=== PATIENT | female | born 1960 | race Caucasian/White ===

== ENCOUNTER 2017-08-13 12:28 | Emergency (ER) | payer MEDICARE, OTHER, SELFPAY ==
[2017-08-13 12:30] VITALS: BP 100/59; PULSE 82; RESP 20; TEMP 36.9; O2SAT 98; BMI 20.6
--- NOTE | 2017-08-13 12:44 | CT_ITS ---
CT lumbar spine wo con Ordering Physician: Lisbet Delgado MD Patient Age: 57 years: Female HISTORY: ITS.REASON: FELL ON ICE X4 DAYS AGO Fell on ice 4 days ago with persistent low back pain. TECHNIQUE: Helical CT is performed the lumbar spine with axial sagittal coronal reconstruction CT workstation COMPARISON :CT chest 10/15/2015 FINDINGS The lumbar vertebral bodies appear intact with no compression fractures or acute findings evident. . Normal alignment L-spine. Disc spaces fairly well maintained. L5/S1 disc intact scant central bulge. Moderate facet hypertrophy and arthropathy. L4/5 diffuse disc bulge most evident central along with facet and ligament flavum hypertrophy. Most Exuberant facet hypertrophy to the left. Features slight narrow the spinal canal. Appearance approaching borderline spinal stenosis. Mild bilateral foraminal encroachment due to these features as well L3/4. Disc intact. Neural foramen unremarkable L2/3 disc intact. Unremarkable L1/2 disc intact. Unremarkable. T12/disc intact. The transverse processes appear intact. Sacrum and SI joints unremarkable. No urinary tract calculi nor obstruction. It aorta minimally calcified but no aneurysm. No retroperitoneal adenopathy. . IMPRESSION: 1. No acute fracture nor subluxation lumbar spine. 2. Developing degenerative changes lower L-spine most notable at L4/5. L4/5 disc bulge most evident central along with facet and ligamentum flavum hypertrophy. Appearance approaching borderline spinal stenosis. Mild bilateral foraminal encroachment. L5/S1 moderatBilateral facet hypertrophy/arthropathy.
--- NOTE | 2017-08-13 12:54 | PC.NURSE ---
CAME OUT OF ROOM AND SAID PT TOLD HIM SHE HAD BEEN VOMITING FOR 3 DAYS , WHICH WAS NEVER TOLD TO NURSING STAFF
[2017-08-13 13:19] LABS: Basophils % 0.2 % (0.1-2.0); Eosinophils # 0.2 K/mm3 (0.0-0.4); Eosinophils % 1.6 % (0.1-12.0); Hematocrit 39.1 % (37.0-47.0); Hemoglobin 13.2 g/dL (12.2-16.2); Lymphocytes # 1.4 K/mm3 (0.7-4.5); Lymphocytes % 9.9 K/mm3 (10-50); Mean Corpuscular HGB Conc 33.7 g/dL (31.8-35.4); Mean Corpuscular Hemoglobin 31.8 pg (27.0-31.2); Mean Corpuscular Volume 94.4 fl (81-99); Mean Platelet Volume 8.1 fl (7.4-10.4); Monocytes # 1.1 K/mm3 (0.1-1.0); Monocytes % 7.8 % (1.7-9.3); Neutrophils # 11.1 K/mm3 (1.8-7.8); Neutrophils % 80.5 % (37.0-80.0); Platelet Count 306 K/mm3 (142-424); Red Blood Count 4.14 M/mm3 (4.20-5.40); Red Cell Distribution Width 12.8 % (11.5-17.5); White Blood Count 13.8 K/mm3 (4.8-10.8)
[2017-08-13 13:27] LABS: Alanine Aminotransferase 18 U/L (12-78); Albumin Level 3.1 gm/dL (3.4-5.0); Albumin/Globulin Ratio 0.9 (1.1-1.8); Alkaline Phosphatase 108 U/L (46-116); Anion Gap 9.8 mEq/L (5-15); Aspartate Amino Transferase 16 U/L (15-37); Bilirubin,Total 0.4 mg/dL (0.2-1.0); Blood Urea Nitrogen 12 mg/dL (7-18); Calcium 8.4 mg/dL (8.5-10.1); Carbon Dioxide 28 mmol/L (21.0-32.0); Chloride 100 mmol/L (98-107); Creatinine Clearance Estimated 69 mL/min (0-300); Creatinine,Serum 0.65 mg/dL (0.55-1.02); Estimated Glomerular Filt Rate 94 ml/min (>60); GFR (African American) 113 ML/MIN (>60); Globulin 3.6 gm/dl (1.3-3.2); Glucose 102 mg/dL (74-106); Sodium 135 mmol/L (136-145); Total Protein,Serum 6.7 gm/dL (6.4-8.2)
[2017-08-13 13:30] LABS: Potassium 2.8 mmoL/L (3.5-5.1)
--- NOTE | 2017-08-13 14:21 | HMH.EDGENADL ---
ED Disposition Clinical Impression: Muscle spasm, Hypokalemia, DJD (degenerative joint disease) Disposition: Home, Self-Care Condition on Discharge: Good Instructions: DI for Low Back Pain Additional Instructions: I advised the patient to slow down on the daily coffee. I advised the patient for a daily banana or orange a day. 3- rest. 4- warm compresses. 5- icy hot. 6- robaxin 7- folloqw up [facility] pcp rosalinda burrows in [place] for a potassium recheck Referrals: Rosalinda Burrows PA [Primary Care Provider] - - Critical Care Critical Care Time: No Attestation: On 08/13/17, the high probability of a clinically significant, sudden or life threatening deterioration of the following system(s) required my full and direct attention, intervention and personal management. The time I documented below is in addition to time spent performing reported procedures but includes the following listed in this critical care notation. Medical Decision Making Vital Signs: 08/13/17 12:30 Temperature 98.4 F Temperature Source Oral Pulse Rate [Right Radial] 82 Respiratory Rate 20 Blood Pressure [Right Arm] 100/59 Blood Pressure Mean [Right Arm] 72 Blood Pressure Source [Right Arm] Automatic Cuff Blood Pressure Position [Right Arm] Standing 02 Sat by Pulse Oximetry 98 Oxygen Delivery Method Room Air - Lab Data Lab Results 08/13/17 13:10: WBC 13.8 H, RBC 4.14 L, Hgb 13.2, Hct 39.1, MCV 94.4, MCH 31.8 H, MCHC 33.7, RDW 12.8, Plt Count 306, MPV 8.1, Neut % (Auto) 80.5 H, Lymph % (Auto) 9.9 L, [place] % (Auto) 7.8, Eos % (Auto) 1.6, Baso % (Auto) 0.2, Neut # (Auto) 11.1 H, Lymph # (Auto) 1.4, [place] # (Auto) 1.1 H, Eos # (Auto) 0.2, Baso # (Auto) 0.0 08/13/17 13:10: Sodium 135 L, Potassium 2.8 L*, Chloride 100, Carbon Dioxide 28, Anion Gap 9.8, BUN 12, Creatinine 0.65, Estimated Creat Clear 69, Estimated GFR 94, Est GFR ( Amer) 113, Glucose 102, Calcium 8.4 L, Total Bilirubin 0.4, AST 16, ALT 18, Alkaline Phosphatase 108, Total Protein 6.7, Albumin 3.1 L, Globulin 3.6 H, Albumin/Globulin Ratio 0.9 L 08/13/17 13:14: Troponin I < 0.02, Lipase 69 L Result diagrams: 08/13/17 13:10 08/13/17 13:10 Orders (Tests/Meds): ED MEDICATIONS Discontinued Medications Generic Name Dose Route Start Last Admin Trade Name Astrid PRN Reason Stop Dose Admin Ketorolac Tromethamine 60 mg 08/13/17 13:31 08/13/17 13:37 Toradol 60mg/2ml Vial IM 08/13/17 13:32 60 mg ONCE ONE Administration Potassium Chloride 40 meq 08/13/17 14:03 08/13/17 14:06 Klor-Con 20meq Tablet PO 08/13/17 14:04 40 meq ONCE ONE Administration - CT Data CT Scan: L-Spine Time Received: 14:[address] Reviewed: Yes: I have reviewed the patient's CT results, I have viewed the radiologist's interpretation Preliminary Findings: Abnormal Findings Narrative: CT scan was positive for arthritis. - Denis Inquiry Pt receiving controlled substance: No Denis was queried for this patient: No Medical Decision Making Narrative: The patient was ruled out for myocardial infarction underwent normal labs except for hypokalemia. Received potassium replacement. Follow-up with Rosalinda burrows in the morning for repeated with POTASSIUM. She was instructed not to drink too much coffee, eat a banana or orange today. General Adult HPI - General Chief complaint: Back Pain/Injury Stated complaint: back pain no accident Mode of Arrival: Ambulatory Limitations: No Limitations Description of Symptoms (Recalled from ER Triage Doc. by RN): PAIN LOW BACK FROM FALL ON ICE X4 DAYS AGO - History of Present Illness HPI narrative: 57 years old white female who slipped and ann her back 4 days ago. Since then she has been experiencing right lower paraspinal pain and vomiting. He did not vomit today. She denies radiation of the pain to the lower extremities she denies weakness or numbness. She denies loss of urine or bowel control. She denies
--- NOTE | 2017-08-13 14:25 | ED_ITS ---
ED Disposition Clinical Impression: Muscle spasm, Hypokalemia, DJD (degenerative joint disease) Disposition: Home, Self-Care Condition on Discharge: Good Instructions: DI for Low Back Pain Additional Instructions: I advised the patient to slow down on the daily coffee. I advised the patient for a daily banana or orange a day. 3- rest. 4- warm compresses. 5- icy hot. 6- robaxin 7- folloqw up [facility] pcp rosalinda burrows in [place] for a potassium recheck Referrals: Rosalinda Burrows PA [Primary Care Provider] - - Critical Care Critical Care Time: No Attestation: On 08/13/17, the high probability of a clinically significant, sudden or life threatening deterioration of the following system(s) required my full and direct attention, intervention and personal management. The time I documented below is in addition to time spent performing reported procedures but includes the following listed in this critical care notation. Medical Decision Making Vital Signs: 08/13/17 12:30 Temperature 98.4 F Temperature Source Oral Pulse Rate [Right Radial] 82 Respiratory Rate 20 Blood Pressure [Right Arm] 100/59 Blood Pressure Mean [Right Arm] 72 Blood Pressure Source [Right Arm] Automatic Cuff Blood Pressure Position [Right Arm] Standing 02 Sat by Pulse Oximetry 98 Oxygen Delivery Method Room Air - Lab Data Lab Results 08/13/17 13:10: WBC 13.8 H, RBC 4.14 L, Hgb 13.2, Hct 39.1, MCV 94.4, MCH 31.8 H , MCHC 33.7, RDW 12.8, Plt Count 306, MPV 8.1, Neut % (Auto) 80.5 H, Lymph % ( Auto) 9.9 L, [place] % (Auto) 7.8, Eos % (Auto) 1.6, Baso % (Auto) 0.2, Neut # ( Auto) 11.1 H, Lymph # (Auto) 1.4, [place] # (Auto) 1.1 H, Eos # (Auto) 0.2, Baso # (Auto) 0.0 08/13/17 13:10: Sodium 135 L, Potassium 2.8 L*, Chloride 100, Carbon Dioxide 28 , Anion Gap 9.8, BUN 12, Creatinine 0.65, Estimated Creat Clear 69, Estimated GFR 94, Est GFR ( Amer) 113, Glucose 102, Calcium 8.4 L, Total Bilirubin 0.4, AST 16, ALT 18, Alkaline Phosphatase 108, Total Protein 6.7, Albumin 3.1 L , Globulin 3.6 H, Albumin/Globulin Ratio 0.9 L 08/13/17 13:14: Troponin I < 0.02, Lipase 69 L Result diagrams: 08/13/17 13:10 08/13/17 13:10 Orders (Tests/Meds): ED MEDICATIONS Discontinued Medications Generic Name Dose Route Start Last Admin Trade Name Astrid PRN Reason Stop Dose Admin Ketorolac Tromethamine 60 mg 08/13/17 13:31 08/13/17 13:37 Toradol 60mg/2ml Vial IM 08/13/17 13:32 60 mg ONCE ONE Administration Potassium Chloride 40 meq 08/13/17 14:03 08/13/17 14:06 Klor-Con 20meq Tablet PO 08/13/17 14:04 40 meq ONCE ONE Administration - CT Data CT Scan: L-Spine Time Received: 14:[address] Reviewed: Yes: I have reviewed the patient's CT results, I have viewed the radiologist's interpretation Preliminary Findings: Abnormal Findings Narrative: CT scan was positive for arthritis. - Denis Inquiry Pt receiving controlled substance: No Denis was queried for this patient: No Medical Decision Making Narrative: The patient was ruled out for myocardial infarction underwent normal labs except for hypokalemia. Received potassium replacement. Follow-up with Rosalinda burrows in the morning for repeated with POTASSIUM. She was instructed not to drink too much coffee, eat a banana or orange today. General Adult HP
[2017-08-13 15:03] LABS: Lipase 69 u/L (73-393); Troponin I < 0.02 ng/ml (0.00-0.06)
[2017-08-13 15:36] VITALS: BP 109/68; PULSE 68; RESP 18; O2SAT 98
== END 2017-08-13 15:36 | disposition home or self-care (01) ==
PROVIDERS: Emergency Provider Emergency Medicine; PCP Physician Assistant
DX: E87.6 Hypokalemia (principal); M62.838 Other muscle spasm; M19.90 Unspecified osteoarthritis, unspecified site
CPT/HCPCS: 36415; 72131; 80053; 83690; 84484; 85025; 99282

== ENCOUNTER → 2017-08-14 15:57 | Outpatient (REF) | payer MEDICARE, OTHER, SELFPAY ==
[2017-08-14 20:24] LABS: Potassium 3.6 mmoL/L (3.5-5.1)
== END ==
LOC: LAB 15:57
PROVIDERS: Visit Provider Physician Assistant
DX: E87.6 Hypokalemia (principal)
CPT/HCPCS: 84132

== ENCOUNTER → 2017-09-08 10:12 | Outpatient (CLI) | payer MEDICARE, OTHER, SELFPAY | PROVIDERS: PCP Physician Assistant; Visit Provider Physician Assistant ==

== ENCOUNTER → 2017-09-13 15:00 | Outpatient (CLI) | payer MEDICARE, OTHER, SELFPAY ==
--- NOTE | 2017-09-13 15:00 | MR_ITS ---
MR lumbar spine wo con, MR 3-d myelogram/MRCP HISTORY: Low back pain with numbness in the left leg and hip ORDERING PHYSICIAN: DIANELYS Ortiz PATIENT AGE: 57 years COMPARISON: CT scan of 08/13/2017 TECHNIQUE: Standard multiplanar multiecho sequences are performed without contrast. 3-D MIP and myelographic images are also rendered and reviewed FINDINGS: There is normal alignment. Spinal cord ends at the L1 level. T12-L1, L1-L2, L2-L3, and L3-L4 have an unremarkable appearance. L4-5: Mild concentric bulging disc with minimal central disc protrusion very slightly eccentric toward the left with mild anterior compression upon the thecal sac. There is facet and ligamentum flavum hypertrophy with bilateral lateral recess narrowing slightly greater on the left. There is mild impingement upon the left L5 nerve root with canal stenosis at 10 mm at this level. L5-S1: Minimal bulging disc slightly eccentric toward the right abutting the right S1 nerve root. No extruded herniated disc. No obvious fracture. IMPRESSION: 1. Mild concentric bulging disc at L4-5 with small broad-based central disc protrusion slightly eccentric toward the left with mild anterior compression upon the thecal sac. There is facet and ligamentum flavum hypertrophy with bilateral lateral recess narrowing slightly greater on the left. There is mild impingement upon the left L5 nerve root with canal stenosis at 10 mm at this level. 2. Mild bulging disc at L5-S1 slightly eccentric toward the right abutting the right S1 nerve root.
== END ==
PROVIDERS: PCP Physician Assistant; Visit Provider Physician Assistant
DX: M48.061 Spinal stenosis, lumbar region without neurogenic claudication (principal); M54.5 Low back pain
CPT/HCPCS: 72148; 76376

== ENCOUNTER → 2017-10-05 13:53 | Outpatient (POV) | payer MEDICARE, OTHER, SELFPAY | PROVIDERS: PCP Physician Assistant; Visit Provider Neurological Surgery | DX: Z00.00 Encounter for general adult medical examination without abnormal findings (principal) ==

== ENCOUNTER → 2017-12-12 12:01 | Outpatient (CLI) | payer MEDICARE, OTHER, SELFPAY ==
--- NOTE | 2017-12-12 12:27 | XR_ITS ---
XR chest 2V HISTORY: ITS.REASON: Congestion ORDERING PHYSICIAN: DIANELYS Ortiz PATIENT AGE: 57 years COMPARISON: 08/11/2015 FINDINGS: Hyperinflation with attenuation of the pulmonary vessels consistent with EOP D. No lobar consolidation or collapse. Calcified granuloma is present in the right lower lobe. Lungs are hyperexpanded with eventration of the right hemidiaphragm. There has been prior median sternotomy. 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
== END ==
PROVIDERS: PCP Physician Assistant; Visit Provider Physician Assistant
DX: R07.9 Chest pain, unspecified (principal); T81.32XA Disruption of internal operation (surgical) wound, not elsewhere classified, initial encounter
CPT/HCPCS: 71046

== ENCOUNTER → 2018-03-07 11:04 | Outpatient (REF) | payer MEDICARE, OTHER, SELFPAY ==
[2018-03-09 18:09] LABS: Neisseria gonorrhoeae, NAA Negative (Negative)
== END ==
LOC: LAB 11:04
PROVIDERS: Visit Provider Physician Assistant
DX: N76.0 Acute vaginitis (principal); B96.89 Other specified bacterial agents as the cause of diseases classified elsewhere
CPT/HCPCS: 87210; 87491; 87591

== ENCOUNTER → 2018-03-28 08:27 | Outpatient (CLI) | payer MEDICARE, OTHER, SELFPAY ==
--- NOTE | 2018-03-28 08:30 | XR_ITS ---
XR wrist LT min 3V HISTORY follow-up fracture ITS.REASON: LT Wrist FX ORDERING PHYSICIAN: Felix Hernandez MD PATIENT AGE: 57 years Comparison: 03/22/2018 FINDINGS: Nondisplaced transverse fracture of the distal radius once again noted. There is mild dorsal angulation of the distal fracture fragment. There may also be a longitudinal component to the fracture extending to the articular surface. On the lateral view there is a mildly displaced dorsal fracture fragment. IMPRESSION: No change transverse fracture distal radius with suspected longitudinal component extending to the articular surface with a small nondisplaced dorsal fragment
== END ==
PROVIDERS: PCP Physician Assistant; Visit Provider Orthopaedic Surgery
DX: S62.102A Fracture of unspecified carpal bone, left wrist, initial encounter for closed fracture (principal)
CPT/HCPCS: 73110

== ENCOUNTER → 2018-04-02 15:12 | Outpatient (CLI) | payer MEDICARE, OTHER, SELFPAY ==
--- NOTE | 2018-04-02 15:17 | US_ITS ---
US extremity RT limited CLINICAL INDICATION: Palpable nodule in the right hip ITS.REASON: nodule right hip ORDERING PHYSICIAN: DIANELYS Ortiz PATIENT AGE: 57 years Comparison: None FINDINGS: There is an isoechoic oval area in the subcutaneous tissues of the right hip which measures 1 x 0.6 cm. There is a peripheral rim of decreased echogenicity around this area. This corresponds to the palpable abnormality. The ultrasound characteristics are nonspecific. No other significant anomalies are evident. IMPRESSION: Solid appearing 1 x 0.6 cm subcutaneous nodule in the right hip. Sonographic findings are nonspecific. Possibly due to an encapsulated lipoma. Follow-up is recommended to confirm stability. CT or MRI may add more specificity. If that is not performed then would recommend at least a 3 month ultrasound follow-up
== END ==
PROVIDERS: PCP Physician Assistant; Visit Provider Physician Assistant
DX: M25.851 Other specified joint disorders, right hip (principal)
CPT/HCPCS: 76882

== ENCOUNTER → 2018-04-03 08:17 | Outpatient (CLI) | payer MEDICARE, OTHER, SELFPAY ==
--- NOTE | 2018-04-03 08:20 | XR_ITS ---
XR wrist LT min 3V HISTORY follow-up fracture/closed reduction ITS.REASON: Left Wrist Fracture ORDERING PHYSICIAN: Felix Hernandez MD PATIENT AGE: 57 years Comparison: 03/28/2018 FINDINGS: There is a cast now in place stabilizing the distal radial fracture and ulnar styloid avulsion. There is mild dorsal angulation of the distal fracture fragment not significant changed. IMPRESSION: No change nondisplaced distal radial fracture with dorsal angulation and avulsion of the styloid process of the ulna
== END ==
PROVIDERS: PCP Physician Assistant; Visit Provider Orthopaedic Surgery
DX: S62.102A Fracture of unspecified carpal bone, left wrist, initial encounter for closed fracture (principal)
CPT/HCPCS: 73110

== ENCOUNTER → 2018-04-06 13:14 | Outpatient (CLI) | payer MEDICARE, OTHER, SELFPAY ==
[2018-04-06 18:25] LABS: Amphetamine/Metha Screen,Urine Negative ng/mL (<1000); Barbiturates Screen,Urine Negative ng/mL (<200); Benzodiazepines Screen,Urine Negative ng/mL (<200); Cannabinoid Screen,Urine Negative ng/mL (<50); Cocaine Screen,Urine Negative ng/mL (<300); Methadone Screen,Urine Negative ng/mL (<300); Opiate Screen,Urine Negative ng/mL (<300); Phencyclidine Screen,Urine Negative ng/mL (<25)
== END ==
PROVIDERS: Visit Provider Nurse Practitioner Family
DX: M25.532 Pain in left wrist (principal); M54.2 Cervicalgia
CPT/HCPCS: 80305

== ENCOUNTER → 2018-04-12 12:50 | Outpatient (CLI) | payer MEDICARE, OTHER, SELFPAY ==
--- NOTE | 2018-04-12 12:52 | XR_ITS ---
XR wrist LT min 3V HISTORY follow-up fracture ITS.REASON: left wrist fx/ in cast ORDERING PHYSICIAN: Erick Ivy MD PATIENT AGE: 57 years Comparison: 04/03/2018 FINDINGS: Impacted distal radial fracture once again noted with dorsal angulation of the distal fracture fragment and no significant displacement. Fracture line is obscured by the underlying cast. IMPRESSION: No change nondisplaced impacted dorsally angulated distal radial fracture
== END ==
PROVIDERS: PCP Physician Assistant; Visit Provider Orthopaedic Surgery
DX: S62.102A Fracture of unspecified carpal bone, left wrist, initial encounter for closed fracture (principal)
CPT/HCPCS: 73110

== ENCOUNTER → 2018-08-30 08:57 | Outpatient (CLI) | payer MEDICARE, OTHER, SELFPAY ==
--- NOTE | 2018-08-30 09:00 | US_ITS ---
US extremity RT limited CLINICAL INDICATION: ITS.REASON: possible lymph node enlargement ORDERING PHYSICIAN: Alejandro Garay MD PATIENT AGE: 58 years Comparison: None FINDINGS: Ultrasound performed of the right groin demonstrating enlarged lymph node at 3.3 x 3.2 x 1.6 cm. There is a central fatty hilum. There are other smaller nodes present in the right groin. No abnormal fluid collections are evident. There are few small nodes in the left inguinal area measuring 1 x 0.8 cm. IMPRESSION: Right inguinal adenopathy
[2018-09-06 08:38] LABS: B. henselae IgG NEGATIVE; B. henselae IgM NEGATIVE
[2018-09-06 08:39] LABS: B. quintana IgG NEGATIVE
[2018-09-06 09:44] LABS: B. quintana IgM NEGATIVE
== END ==
PROVIDERS: PCP Physician Assistant; Visit Provider Surgery
DX: L98.9 Disorder of the skin and subcutaneous tissue, unspecified (principal)
CPT/HCPCS: 36415; 76882; 86611

== ENCOUNTER → 2018-09-20 10:49 | Outpatient (CLI) | payer MEDICARE, OTHER, SELFPAY ==
[2018-09-20 11:12] LABS: Basophils % 0.8 % (0.1-2.0); Eosinophils # 0.1 K/mm3 (0.0-0.4); Eosinophils % 1.1 % (0.1-12.0); Hematocrit 41.3 % (37.0-47.0); Hemoglobin 13.2 g/dL (12.2-16.2); Lymphocytes # 0.7 K/mm3 (0.7-4.5); Lymphocytes % 13.7 % (10-50); Mean Corpuscular Hemoglobin 31.9 pg (27.0-31.2); Mean Corpuscular Volume 99.7 fl (81-99); Mean Platelet Volume 7.6 fl (7.4-10.4); Monocytes # 0.4 K/mm3 (0.1-1.0); Monocytes % 7.1 % (1.7-9.3); Neutrophils # 4.1 K/mm3 (1.8-7.8); Neutrophils % 77.3 % (37.0-80.0); Platelet Count 284 K/mm3 (142-424); Red Blood Count 4.14 M/mm3 (4.20-5.40); White Blood Count 5.3 K/mm3 (4.8-10.8)
[2018-09-20 12:12] LABS: Anion Gap 14.7 mEq/L (5-15); Blood Urea Nitrogen 11 mg/dL (7-18); Calcium 8.6 mg/dL (8.5-10.1); Carbon Dioxide 28 mmol/L (21.0-32.0); Chloride 100 mmol/L (98-107); Estimated Glomerular Filt Rate 102 ml/min (>60); GFR (African American) 124 ML/MIN (>60); Glucose 85 mg/dL (74-106); Potassium 3.7 mmoL/L (3.5-5.1); Sodium 139 mmol/L (136-145)
== END ==
PROVIDERS: Visit Provider Surgery
DX: L98.9 Disorder of the skin and subcutaneous tissue, unspecified (principal); S62.102A Fracture of unspecified carpal bone, left wrist, initial encounter for closed fracture
CPT/HCPCS: 36415; 80048; 85025

== ENCOUNTER → 2019-01-11 11:22 | Outpatient (CLI) | payer MEDICARE, OTHER, SELFPAY ==
--- NOTE | 2019-01-11 11:27 | XR_ITS ---
XR hand RT min 3V HISTORY: Third digit pain, possible foreign body ITS.REASON: ? FB right 3rd PIP ORDERING PHYSICIAN: DIANELYS Keenan PATIENT AGE: 58 years COMPARISON: None FINDINGS: No fracture or dislocation. No lytic or blastic change. There is normal mineralization.. The joint spaces are well-preserved. No significant degenerative/arthritic changes. No erosive changes evident.. IMPRESSION: Negative, no acute finding
--- NOTE | 2019-01-11 11:27 | XR_ITS ---
XR chest 2V HISTORY: ITS.REASON: cough, pain right side ORDERING PHYSICIAN: DIANELYS Keenan PATIENT AGE: 58 years COMPARISON: 12/12/2017 FINDINGS: Prior CABG. Normal heart size. COPD. There is patchy density in the right lower lobe consistent with pneumonia with chronic blunting of CP angles. IMPRESSION: Right lower lobe pneumonia with COPD
== END ==
PROVIDERS: PCP Physician Assistant; Visit Provider Physician Assistant
DX: M25.441 Effusion, right hand (principal); R05 Cough
CPT/HCPCS: 71046; 73130

== ENCOUNTER → 2019-04-02 10:18 | Outpatient (CLI) | payer MEDICARE, OTHER, SELFPAY ==
--- NOTE | 2019-04-02 10:22 | XR_ITS ---
PROCEDURE: XR CHEST 2V CLINICAL HISTORY: cough Cough pneumonia COMPARISON: CXR CHEST(2 VIEWS-NOT PORTABLE) from 06/23/2014 CXR CHEST(2 VIEWS-NOT PORTABLE) from 08/11/[address] [facility] [address] CHEST W/O CONTRAST from 07/13/2016 CXR2V XR chest 2V from 12/12/2017 FINDINGS: Prior median sternotomy. COPD. Old granulomatous disease. There is chronic blunting of the CP angles. No lobar consolidation or collapse is evident. No acute bony abnormalities. IMPRESSION: No acute finding. COPD with chronic change Dictated by: Angel Luna MD 04/02/2019 17:13 Electronically signed by Angel Luna MD in [place] 04/02/2019 17:13
== END ==
PROVIDERS: PCP Emergency Medicine; Visit Provider Nurse Practitioner Family
DX: R05 Cough (principal); R06.2 Wheezing
CPT/HCPCS: 71046

== ENCOUNTER → 2019-08-07 16:43 | Outpatient (CLI) | payer MEDICARE, MEDICAID, SELFPAY ==
[2019-08-10 12:23] LABS: Neisseria gonorrhoeae, NAA Negative (Negative)
== END ==
PROVIDERS: Visit Provider Nurse Practitioner Family
DX: N76.0 Acute vaginitis
CPT/HCPCS: 87210; 87591

== ENCOUNTER → 2020-07-31 07:28 | Outpatient (CLI) | payer MEDICARE, MEDICAID, SELFPAY ==
--- NOTE | 2020-07-31 07:46 | MR_ITS ---
PROCEDURE: MR CERVICAL SPINE WO/W CON CLINICAL INDICATION: cystic lesion overlying c -spine Palpable mass of the posterior neck COMPARISON: No exams were available for comparison TECHNIQUE: Standard multiplanar multiecho sequences are performed without contrast. 3-D MIP and myelographic images are also rendered and reviewed FINDINGS: There is normal alignment. The craniocervical junction has an unremarkable appearance. C2-C3: Unremarkable. C3-C4: Unremarkable. C4-C5: There is a small to medium-sized central disc protrusion. This is causing canal stenosis and impingement and compression upon the central aspect of the cord with canal measuring 7 mm at this level. C5-C6: Small to medium-sized central herniation causing compression upon the anterior and central aspect of the cord with canal stenosis with canal measuring 7 mm at this level. C6-C7: Small central/left paracentral disc protrusion without cord impingement or flattening. There is canal stenosis with canal measuring 9 mm at this level. A marker is placed along the posterior aspect of the neck. This is at the C2-C3 level and is reported as an area of palpable abnormality. No soft tissue mass or cyst evident at this level. No enhancing lesions apparent. There is some undulation posteriorly of the posterior neck fascia just inferior to this region with some adipose tissue deep to this area. IMPRESSION: 1. Small to medium-sized central disc protrusion at C4-C5 with compression upon the cord centrally. 2. Small to medium-sized central disc herniation C5-C6 with compression upon the cord centrally 3. No cystic or soft tissue mass evident at the area of palpable concern. There is some minimal undulation of the neck fascia anterior and inferior to the placed marker with some mildly prominent adipose tissue possibly causing the palpable abnormality and may represent lipomatous involvement Dictated by: Angel Luna MD 08/01/2020 11:26 Angel Luna MD in [place] 08/01/2020 11:26
[2020-07-31 08:03] LABS: Anion Gap 10.1 mEq/L (5-15); Blood Urea Nitrogen 16 mg/dl (7-17); Calcium 9.7 mg/dl (8.4-10.2); Carbon Dioxide 31 mmol/L (22.0-30.0); Chloride 103 mmol/L (98-107); Estimated Glomerular Filt Rate 85 ml/min (>60); GFR (African American) 103 ML/MIN (>60); Glucose 51 mg/dl (74-100); Potassium 4.1 mmoL/L (3.5-5.1); Sodium 140 mmol/L (136-145)
== END ==
PROVIDERS: PCP Physician Assistant; Visit Provider Physician Assistant
DX: Z01.818 Encounter for other preprocedural examination (principal); G95.89 Other specified diseases of spinal cord; M85.68 Other cyst of bone, other site
CPT/HCPCS: 36415; 72156; 76376; 80048; 82565; 84520; A9576

== ENCOUNTER → 2020-09-01 09:57 | Outpatient (CLI) | payer MEDICARE, MEDICAID, SELFPAY ==
--- NOTE | 2020-09-01 10:00 | XR_ITS ---
PROCEDURE: XR DEXA AXIAL SKELETON CLINICAL INDICATION: screening COMPARISON: No exams were available for comparison FINDINGS: Right femoral neck density is 0.682 with a T-score of -1.5. Left femoral neck density is 0.707 with a T-score -1.3. L1-L4 density has a T-score of -0.8. IMPRESSION: Osteopenia with increased fracture risk. Treatment advised. Suggest follow-up exam in 2 years. Dictated by: Angel Luna MD 11/14/2020 19:09 Angel Luna MD in [place] 11/14/2020 19:09
== END ==
PROVIDERS: PCP Physician Assistant; Visit Provider Physician Assistant
DX: Z78.0 Asymptomatic menopausal state (principal); Z13.820 Encounter for screening for osteoporosis
CPT/HCPCS: 77080

== ENCOUNTER → 2020-11-24 14:23 | Outpatient (CLI) | payer MEDICARE, MEDICAID, SELFPAY | PROVIDERS: Visit Provider Physician Assistant | DX: N89.8 Other specified noninflammatory disorders of vagina (principal) | CPT/HCPCS: 87210 ==

== ENCOUNTER → 2021-02-15 06:15 | Outpatient (CLI) | payer MEDICARE, MEDICAID, SELFPAY ==
--- NOTE | 2021-02-15 06:15 | CT_ITS ---
PROCEDURE: CT LUNG SCREENING CLINICAL INDICATION: lung cancer screening Former smoker Quit smoking x2wks ago 40 pack year smoking history COMPARISON: CT [facility] CHEST W/O CONTRAST from 07/13/2016 TECHNIQUE: The exam was performed on a GE Light Speed [address] scanner using 2.90 mGy CTDI. A low dose helical CT CHEST was performed on a multi-detector scanner. All CT scans at the facility use one or more dose reduction, viz: automated exposure control, ma/kV adjustment per patient size (including targeted exams where dose is matched to indication, i.e. head), or iterative reconstruction technique. The LDCT was performed in a facility that meets the criteria for the screening program. Data regarding this exam was submitted to ACR which is an approved registry. The order for this exam indicates that it came as a result of a lung cancer screening counseling shard decision-making visit that included all the elements required of such a visit including smoking cessation. The radiologist interpreting this exam meets the CMS criteria for the LDCT lung cancer screening program. The exam is reported using the Lung-RADS classification scale and reported to the ACR registry. NOTE: This study was performed for the specific purposes of lung cancer screening and is not an alternative to diagnostic chest CT. RADIATION DOSE: CTDI vol(CT dose Index-volume) = 2.90mG DLP (Dose Length Product) = 101.86 mGcm FINDINGS: COPD changes with scattered areas of scarring with panlobular emphysema in the upper lobes. Old granulomatous disease with scattered calcified nodules. No suspicious pulmonary nodule apparent OTHER FINDINGS: Coronary artery calcifications are present. Dense calcification noted in the right breast. Prior median sternotomy IMPRESSION: Lung-RADS Category 1 Negative Follow-up: Continue annual screening with LDCT in 12 months Dictated by: Angel Luna MD 02/23/2021 10:29 Angel Luna MD in [place] 02/23/2021 10:29
== END ==
PROVIDERS: PCP Physician Assistant; Visit Provider Physician Assistant
DX: Z87.891 Personal history of nicotine dependence (principal); Z12.2 Encounter for screening for malignant neoplasm of respiratory organs
CPT/HCPCS: 71271

== ENCOUNTER 2021-02-20 10:13 | Emergency (ER) | payer MEDICARE, MEDICAID, SELFPAY ==
[2021-02-20 10:14] VITALS: BP 126/78; PULSE 60; RESP 20; TEMP 37; O2SAT 98; BMI 21.2
--- NOTE | 2021-02-20 10:26 | HMH.EDGENADL ---
ED Disposition Clinical Impression: Acute pain due to trauma Fall Qualifiers: Encounter type: initial encounter Qualified Code(s): W19.XXXA - Unspecified fall, initial encounter Ribs, multiple fractures Qualifiers: Encounter type: initial encounter Fracture type: closed Laterality: right Qualified Code(s): S22.41XA - Multiple fractures of ribs, right side, initial encounter for closed fracture Disposition: Home, Self-Care Condition on Discharge: Good Additional Instructions: Incentive spirometer at least 3 times per hour. Follow-up PCP on Monday. Medications as directed. Return the emergency department for shortness of breath, fever, cough. Prescriptions: Ibuprofen [Motrin 800mg Tab] 800 mg PO Q8HP PRN #30 tab PRN Reason: Moderate Pain Transmission Status: Pending to [facility] Hydrocodone/Acetaminophen [Hydrocodone-Acetamin 5-325 mg] 1 tab PO TID #10 tab Transmission Status: Sent to [facility] methocarbamoL [Methocarbamol] 500 mg PO QID PRN #20 tab PRN Reason: Moderate Pain Transmission Status: Pending to [facility] Referrals: Cristiane Burrows PA [Primary Care Provider] - 3 days Time of Disposition: 11:51 - Critical Care Critical Care Time: No Attestation: On , the high probability of a clinically significant, sudden or life threatening deterioration of the following system(s) required my full and direct attention, intervention and personal management. The time I documented below is in addition to time spent performing reported procedures but includes the following listed in this critical care notation. Medical Decision Making - Medical Records Medical records reviewed: Yes: I reviewed the patient's medical records. - Denis Inquiry Pt receiving controlled substance: Yes Denis was queried for this patient: No Reason not queried -: Emergent pt cond-no time Risks and benefits of using a controlled substance: were discussed with pt by me Vital Signs: 02/20/21 10:14 02/20/21 11:20 Temperature 98.6 F Temperature Source Oral Pulse Rate 57 L Pulse Rate [Radial] 60 Respiratory Rate 20 22 Blood Pressure 138/74 Blood Pressure [Right Arm] 126/78 Blood Pressure Mean [Right Arm] 94 Blood Pressure Position Sitting Blood Pressure Position [Right Arm] Sitting 02 Sat by Pulse Oximetry 98 96 Oxygen Delivery Method Room Air Room Air - Lab Data Lab Results 02/20/21 10:40: WBC 9.3, RBC 4.99, Hgb 15.7, Hct 48.0 H, MCV 96.1, MCH 31.5 H, MCHC 32.8, RDW 13.9, Plt Count 381, MPV 8.1, Neut % (Auto) 74.2, Lymph % (Auto) 19.5, [place] % (Auto) 4.0, Eos % (Auto) 1.3, Baso % (Auto) 1.0, Neut # (Auto) 6.9, Lymph # (Auto) 1.8, [place] # (Auto) 0.4, Eos # (Auto) 0.1, Baso # (Auto) 0.1 02/20/21 10:40: Sodium 139, Potassium 3.4 L, Chloride 100, Carbon Dioxide 31 H, Anion Gap 11.4, BUN 13, Creatinine 0.70, Estimated Creat Clear 44, Estimated GFR 85, Est GFR ( Amer) 103, Glucose 110 H, Calcium 9.2, Total Bilirubin 0.7, AST 111 H, ALT 63, Alkaline Phosphatase 142 H, Total Protein 8.0, Albumin 4.8, Globulin 3.2, Albumin/Globulin Ratio 1.5 Result diagrams: 02/20/21 10:40 02/20/21 10:40 Orders (Tests/Meds): ED MEDICATIONS Discontinued Medications Generic Name Dose Route Start Last Admin Trade Name Astrid PRN Reason Stop Dose Admin Iopamidol 100 ml 02/20/21 11:19 02/20/21 11:20 Iopamidol-370 (76%);100ml Bottle IV 02/20/21 11:20 100 ml ONCE ONE Administration Ketorolac Tromethamine 15 mg 02/20/21 11:46 Ketorolac 30mg/Ml Vial IV 02/20/21 11:47 ONCE ONE Morphine Sulfate 2 mg 02/20/21 10:32 02/20/21 10:40 Morphine 2mg/Ml Syringe IV 02/20/21 10:33 2 mg ONCE ONE Administration Ondansetron HCl 4 mg 02/20/21 10:39 02/20/21 10:40 Ondansetron 4mg/2ml Vial IV 02/20/21 10:40 4 mg ONCE ONE Administration Sodium Chloride 50 ml 02/20/21 11:19 02/20/21 11:20 0.9 % Sodium Chloride 50 Ml Vial IV 02/20/21 11:20 50 ml ONCE ONE Ad
--- NOTE | 2021-02-20 10:29 | CT_ITS ---
PROCEDURE INFORMATION: Exam: CT Head Without Contrast Exam date and time: 02/20/2021 10:29 AM Age: 60 years old Clinical indication: Injury or trauma; Fall; Additional info: Trauma, fall TECHNIQUE: Imaging protocol: Computed tomography of the head without contrast. Radiation optimization: All CT scans at this facility use at least one of these dose optimization techniques: automated exposure control; mA and/or kV adjustment per patient size (includes targeted exams where dose is matched to clinical indication); or iterative reconstruction. COMPARISON: [facility] CT HEAD-W/WO CONTRAST 08/08/2016 10:27 AM FINDINGS: Brain: Marcial white matter distinction is maintained throughout the brain. No radiographic evidence of intracranial hemorrhage. No CT evidence of mass hemorrhage or acute infarction. Encephalomalacia within the right frontal lobe Cerebral ventricles: Ventricles are of normal size and configuration. Paranasal sinuses: Visualized sinuses are unremarkable. No fluid levels. Mastoid air cells: Visualized mastoid air cells are well aerated. Bones/joints: Unremarkable. No acute fracture. Soft tissues: Unremarkable. Other findings: No intra or extra-axial masses, lesions or collections. 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 IMPRESSION: 1. No acute intracranial process is appreciated. 2. 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
--- NOTE | 2021-02-20 10:29 | CT_ITS ---
PROCEDURE INFORMATION: Exam: CT Abdomen And Pelvis With Contrast Exam date and time: 02/20/2021 10:29 AM Age: 60 years old Clinical indication: Injury or trauma; Fall; Additional info: Trauma, fall TECHNIQUE: Imaging protocol: Computed tomography of the abdomen and pelvis with contrast. Radiation optimization: All CT scans at this facility use at least one of these dose optimization techniques: automated exposure control; mA and/or kV adjustment per patient size (includes targeted exams where dose is matched to clinical indication); or iterative reconstruction. Contrast material: ISOVUE; Contrast volume: 100 ml; Contrast route: IV; COMPARISON: None FINDINGS: Liver: Its lobulated 15 x 9 mm high attenuation cyst in the liver. Gallbladder and bile ducts: Unremarkable gallbladder. Pancreas: Mild pancreatic ductal dilatation without focal mass. Spleen: Splenic granulomata. Adrenal glands: Subtle left adrenal nodularity. Kidneys and ureters: Normal renal morphology. No hydronephrosis. Stomach and bowel: Wall thickening in the nondistended stomach. Bowel dilatation, without a focal transition zone. Prominent stool. Mild wall thickening in the nondistended right and transverse colon. Appendix: Nonvisualization of the appendix. Intraperitoneal space: No significant free fluid. Vasculature: Vascular calcification. No abdominal aortic aneurysm. Lymph nodes: Subcentimeter lymph nodes. Urinary bladder: Unremarkable bladder. Reproductive: Status post hysterectomy. Bones/joints: Degenerative change and disc bulging. Acute fractures of the right 10th, 11th, and 12th posterior ribs. IMPRESSION: 1. Acute fractures of the right 10th, 11th, and 12th posterior ribs. 2. No acute visceral injury in the abdomen or pelvis.
--- NOTE | 2021-02-20 10:29 | CT_ITS ---
PROCEDURE INFORMATION: Exam: CT Cervical Spine Without Contrast Exam date and time: 02/20/2021 10:29 AM Age: 60 years old Clinical indication: Injury or trauma; Fall; Additional info: Trauma, fall TECHNIQUE: Imaging protocol: Computed tomography images of the cervical spine without contrast. Radiation optimization: All CT scans at this facility use at least one of these dose optimization techniques: automated exposure control; mA and/or kV adjustment per patient size (includes targeted exams where dose is matched to clinical indication); or iterative reconstruction. COMPARISON: [facility] CERVICAL SPINE WO/W CON 07/31/2020 8:28 AM FINDINGS: Bones/joints: alignment is normal. posterior vertebral line and the spinal laminar line normal; odontoid process normal; no fracture; Prior anterior interbody fusion C4-C5 and C5-C6.Surgical plate closely opposed to the anterior aspect of the vertebral bodies. Discs/Spinal canal/Neural foramina: No significant disc protrusion. No severe spinal canal stenosis. No significant neural foraminal narrowing. Lungs: Emphysema. Pleural thickening. Apical fibrosis. Soft tissues: Unremarkable. IMPRESSION: 1. No fracture. 2. Prior anterior interbody fusion C4-C5 and C5-C6.Surgical plate closely opposed to the anterior aspect of the vertebral bodies. Mild degenerative disc disease C6-C7
--- NOTE | 2021-02-20 10:29 | CT_ITS ---
PROCEDURE INFORMATION: Exam: CTA Chest With Contrast Exam date and time: 02/20/2021 10:29 AM Age: 60 years old Clinical indication: Injury or trauma; Fall; Additional info: Trauma, fall TECHNIQUE: Imaging protocol: Computed tomographic angiography of the chest with contrast. 3D rendering (Not supervised by radiologist): MIP and/or 3D reconstructed images were created by the technologist. Radiation optimization: All CT scans at this facility use at least one of these dose optimization techniques: automated exposure control; mA and/or kV adjustment per patient size (includes targeted exams where dose is matched to clinical indication); or iterative reconstruction. Contrast material: ISOVUE; Contrast volume: 100 ml; Contrast route: INTRAVENOUS (IV); COMPARISON: [facility] CT CHEST W/O CONTRAST 07/13/2016 2:35 PM FINDINGS: Pulmonary arteries: No pulmonary embolus in the opacified pulmonary arteries. Aorta: Calcification and atherosclerotic plaque in the thoracic aorta, without focal aneurysm or dissection. Lungs: COPD, interstitial disease, chronic granulomatous disease, and mild dependent right-sided airspace disease. Pleural spaces: Trace right pleural effusion. No pneumothorax. Heart: No cardiomegaly. Lymph nodes: Calcified lymph nodes in association with chronic granulomatous disease. Bones/joints: Median sternotomy. Acute fractures of the right 10th, 11th, and 12th posterior ribs. Degenerative change. Soft tissues: Right breast calcification. IMPRESSION: 1. Acute fractures of the right 10th, 11th, and 12th posterior ribs. 2. COPD, interstitial disease, chronic granulomatous disease, and mild dependent right-sided airspace disease. 3. Additional findings as described above.
[2021-02-20 10:57] LABS: Basophils # 0.1 K/mm3 (0-0.2); Eosinophils # 0.1 K/mm3 (0.0-0.4); Eosinophils % 1.3 % (0.1-12.0); Hemoglobin 15.7 g/dL (12.2-16.2); Lymphocytes # 1.8 K/mm3 (0.7-4.5); Lymphocytes % 19.5 % (10-50); Mean Corpuscular HGB Conc 32.8 g/dL (31.8-35.4); Mean Corpuscular Hemoglobin 31.5 pg (27.0-31.2); Mean Corpuscular Volume 96.1 fl (81-99); Mean Platelet Volume 8.1 fl (7.4-10.4); Monocytes # 0.4 K/mm3 (0.1-1.0); Neutrophils # 6.9 K/mm3 (1.8-7.8); Neutrophils % 74.2 % (37.0-80.0); Platelet Count 381 K/mm3 (142-424); Red Blood Count 4.99 M/mm3 (4.20-5.40); Red Cell Distribution Width 13.9 % (11.5-17.5); White Blood Count 9.3 K/mm3 (4.8-10.8)
[2021-02-20 11:01] LABS: Alanine Aminotransferase 63 U/L (12-78); Albumin Level 4.8 g/dl (3.5-5.0); Albumin/Globulin Ratio 1.5 (1.1-1.8); Alkaline Phosphatase 142 U/L (38-126); Anion Gap 11.4 mEq/L (5-15); Aspartate Amino Transferase 111 U/L (14-36); Bilirubin,Total 0.7 mg/dl (0.2-1.3); Blood Urea Nitrogen 13 mg/dl (7-17); Calcium 9.2 mg/dl (8.4-10.2); Carbon Dioxide 31 mmol/L (22.0-30.0); Chloride 100 mmol/L (98-107); Creatinine Clearance Estimated 44 mL/min (50-200); Estimated Glomerular Filt Rate 85 ml/min (>60); GFR (African American) 103 ML/MIN (>60); Globulin 3.2 g/dL (1.3-3.2); Glucose 110 mg/dl (74-100); Potassium 3.4 mmoL/L (3.5-5.1); Sodium 139 mmol/L (136-145)
[2021-02-20 11:19] VITALS: BP 138/74; PULSE 59; RESP 18; O2SAT 96
[2021-02-20 11:20] VITALS: BP 138/74; PULSE 57; RESP 22; O2SAT 96
[2021-02-20 11:30] VITALS: BP 133/75; PULSE 51; RESP 20; O2SAT 94
[2021-02-20 12:29] VITALS: BP 129/65; PULSE 68; RESP 16; TEMP 36.6; O2SAT 98
== END 2021-02-20 12:30 | disposition home or self-care (01) ==
PROVIDERS: Emergency Provider Family Medicine; PCP Physician Assistant
DX: S22.41XA Multiple fractures of ribs, right side, initial encounter for closed fracture (principal); W11.XXXA Fall on and from ladder, initial encounter; Y92.9 Unspecified place or not applicable; K21.9 Gastro-esophageal reflux disease without esophagitis; J44.9 Chronic obstructive pulmonary disease, unspecified; Z79.899 Other long term (current) drug therapy; Z88.5 Allergy status to narcotic agent
CPT/HCPCS: 70450; 71275; 72125; 74177; 80053; 85025; 96374; 96375; 99282; J2405; Q9967

== ENCOUNTER 2021-02-22 10:06 | Emergency (ER) | payer MEDICARE, MEDICAID, SELFPAY ==
[2021-02-22 10:15] VITALS: BP 139/73; PULSE 64; RESP 19; TEMP 36.9; O2SAT 97; BMI 20.1
[2021-02-22 10:48] VITALS: BP 139/73; PULSE 64; RESP 19; TEMP 36.9; O2SAT 97
--- NOTE | 2021-02-22 10:55 | HMH.EDUTC ---
[facility] [place] Clinical Impression: Rib pain Disposition: Home, Self-Care Condition on Discharge: Good Instructions: Lidocaine Transdermal Patch Additional Instructions: *Ibuprofen felicitas 6 hours with meal as needed for pain/inflammation *Not additional anti-inflammatory like motrin, aleve, advil with the above amount of ibuprofen. You can still take Tylenol every 4 hours as needed if you need something else for pain *Ice 20 minutes every 2 hours for the first 48 hours after the initial injury followed by moist heat every 20 minutes 3-4 times a day to affected area *Muscle relaxer as prescribed as needed for muscle spasms but remember, it WILL cause drowsiness You cannot take it and drive, operate machinery or care for small children. *Keep this area active, no movement leads to more stiffness, However take it easy and avoid heavy lifting pushing or pulling *Follow up with you family doctor if no improvement for further treatment You may try over the counter Lidocaine patches to help with the pain use as directed and make sure to check with your pharmacist to make sure that you can use these with your other medication You may hold pillow over area when you cough this may help with some pain and discomfort Follow up with your Family Doctor Prescriptions: Benzonatate [Tessalon Perle 100mg Cap*] 100 mg PO TID PRN #15 cap PRN Reason: Cough Transmission Status: Received by [facility] Referrals: Cristiane Burrows PA [Primary Care Provider] - As needed Time of Disposition: 11:03 Medical Decision Making - Denis Inquiry Pt receiving controlled substance: No Denis was queried for this patient: No Vital Signs: 02/22/21 10:15 02/22/21 10:48 Temperature 98.4 F 98.4 F Temperature Source Oral Pulse Rate 64 Pulse Rate [Right Brachial] 64 Respiratory Rate 19 19 Blood Pressure 139/73 Blood Pressure [Right Arm] 139/73 Blood Pressure Mean [Right Arm] 95 Blood Pressure Source [Right Arm] Automatic Cuff Blood Pressure Position [Right Arm] Sitting 02 Sat by Pulse Oximetry 97 Oxygen Delivery Method Room Air [facility] [place] - General Stated complaint: cough Time Seen by Provider: 02/22/21 10:55 Mode of Arrival: Ambulatory Source of Information: Patient Limitations: No Limitations Description of Symptoms (Recalled from Triage Doc. by RN): PATIENT C/O COUGH AND RIB PAIN. REPORTS SHE WENT TO ER ON MONDAY AFTER FALLING OFF OF LADDER AND WAS TOLD HER RIBS WERE BROKEN HEENT Symptoms (Recalled from RN notes): No Resp Symptoms (Recalled from RN notes): Yes Skin Symptoms (Recalled from RN notes): No MS Symptoms (Recalled from RN notes): Yes Functional Status (Recalled from RN notes): WNL - History of Present Illness Provider Complaint: Patient state that she was seen in the ED over the weekend after she fell off ladder and had some fractured ribs States that they give her some Ibuprofen and Hydrocodone but she has taken all the Hydrocodone and the ibuprofen isnt helping much with the pain States that when she coughs it makes her rib pain worse and she came in to see if she could get something else to help with the pain States that she has a nagging cough on and off all time from when she smoked - Related Data Previous Rx's Medication Instructions Recorded esomeprazole magnesium 40 mg 40 mg PO DAILY #90 cap 12/28/18 capsule,delayed release albuterol sulfate 90 mcg/actuation 90 mcg INHALATION DAILY #1 each 12/12/19 breath activated powder inhaler budesonide-formoterol HFA 80 2 puff INHALATION BID #10.2 g 07/14/20 mcg-4.5 mcg/actuation aerosol inhaler triamcinolone acetonide 0.5 % 1 applic TOPICAL BID #15 g 10/06/20 topical cream alendronate 70 mg tablet 70 mg PO WEEKLY #10 tab 11/16/20 calcium carbonate 600 mg (1,500 1 tab PO DAILY #30 tab 11/16/20 mg)-vitamin D3 400 unit tablet carbamazepine 200 mg tablet See Rx Instructions .ROUTE 11/16/20 .COMPLEX #90 tab hydroxyzine pamoate 25 mg capsule 25
== END 2021-02-22 11:15 | disposition home or self-care (01) ==
PROVIDERS: Emergency Provider Nurse Practitioner; PCP Physician Assistant
DX: S22.41XG Multiple fractures of ribs, right side, subsequent encounter for fracture with delayed healing (principal); R05 Cough; J44.9 Chronic obstructive pulmonary disease, unspecified; K21.9 Gastro-esophageal reflux disease without esophagitis; F12.10 Cannabis abuse, uncomplicated; F17.210 Nicotine dependence, cigarettes, uncomplicated; Z79.899 Other long term (current) drug therapy
CPT/HCPCS: G0463; 99202

== ENCOUNTER → 2021-03-03 14:53 | Outpatient (CLI) | payer MEDICARE, MEDICAID, SELFPAY ==
[2021-03-03 15:35] VITALS: PULSE 53; PULSE 58
== END ==
PROVIDERS: PCP Physician Assistant; Visit Provider Physician Assistant
DX: Z87.891 Personal history of nicotine dependence (principal)
CPT/HCPCS: 94060; 94640; 94726; 94729

== ENCOUNTER → 2021-04-12 14:27 | Outpatient (CLI) | payer MEDICARE, MEDICAID, SELFPAY | PROVIDERS: Visit Provider Surgery | DX: Z01.812 Encounter for preprocedural laboratory examination (principal); Z20.822 Contact with and (suspected) exposure to COVID-19; U07.1 COVID-19; M75.91 Shoulder lesion, unspecified, right shoulder | CPT/HCPCS: C9803; U0003; U0005 ==

== ENCOUNTER 2021-05-11 06:05 | Day surgery (SDC) | payer MEDICARE, MEDICAID, SELFPAY ==
[2021-05-11] VITALS (9 sets, daily range): BP systolic 133–156; BP diastolic 54–94; PULSE 50–59; RESP 12–18; TEMP 36.1–36.4; O2SAT 97–100; BMI 20.2
--- NOTE | 2021-05-11 07:01 | P.PN_ITS ---
[facility] Anesthesia Checklist - Patient Identification Patient Identification: Arm Band - Structural Data Admitted From: Home Planned Operative Procedure/s: Excision lesion - back Consent for Planned Operative Procedure(s) Verified: Yes - NPO Status Verified Time NPO: 00:00 - Additional verifications Anesthesia Reactions: No Hx Blood Transfusions: No Blood Transfusion Reaction: No - Airway Assessment C-Spine Mobility Assessed: Yes TMJ Mobility Assessed: Yes Dentition: Edentulous - Neurological Assessment Level of Consciousness: Awake Hx Seizures: Yes Numbness or tingling in extremities: No - Anesthesia Plan Anesthesia Risk discussed: Yes Anesthesia Plan: Verified ASA Class: III Anesthesia Type: General [facility] History I have reviewed the patient's past medical history: Yes Medical History: Reports:: Chronic Obstructive Pulmonary Disease (COPD), Gastroesophageal Reflux Disease(GERD), Seizures (last seizure 1 year ago) Denies:: Cancer, Diabetes Mellitus Type 1, Diabetes Mellitus Type 2, Internal Pacemaker, MRSA *Have you ever received a pneumonia vaccine?: No *Have you received a flu vaccine this season?: No Other Medical History: Reports: Arthritis, Sinus Problems. Denies: Blood Transfusion Reaction Anesthesia experience/problems:: None Laterality Cases: Right: Carpal Tunnel Release, Bilateral: Cataract, Tonsillectomy Other Surgeries: Yes: No Previous Surgery, Appendectomy, , Hysterectomy-Total, Plastic Surgery, Other. No: Pacemaker Amputation: No Fractures: Yes - *Social History Last grade of school completed: High school graduate Smoking Status: Current every day smoker Tobacco Type: cigarettes # Packs/Day (cigarettes): 1 Alcohol Intake: never Substance Use Type: marijuana, former substance user *Occupational Status:: retired, disabled Housing: house Household Members: children *Travel in the last 8 weeks: None Family Hx:: Cancer
--- NOTE | 2021-05-11 07:09 | HMH.GSHP ---
HPI HPI: Patient is a 60-year-old female referred by Cristiane Burrows for mole on her back. She states that she has had a small area present for about 2 years. However it has increased in size and she has some itching discomfort. It is quite bothersome to her. She was seen in the office and found to have a likely keratosis on her back. I offered her excision. I did discuss with her doing this as a local anesthetic. She would prefer to have this done under some sedation. Plan for local MAC. [facility] History I have reviewed the patient's past medical history: Yes Medical History: Reports:: Chronic Obstructive Pulmonary Disease (COPD), Gastroesophageal Reflux Disease(GERD), Seizures Denies:: Cancer, Diabetes Mellitus Type 1, Diabetes Mellitus Type 2, Internal Pacemaker, MRSA *Have you ever received a pneumonia vaccine?: No *Have you received a flu vaccine this season?: No Other Medical History: Reports: Arthritis, Sinus Problems. Denies: Blood Transfusion Reaction Anesthesia experience/problems:: None Laterality Cases: Right: Carpal Tunnel Release, Bilateral: Cataract, Tonsillectomy Other Surgeries: Yes: No Previous Surgery, Appendectomy, , Hysterectomy-Total, Plastic Surgery, Other. No: Pacemaker Amputation: No Fractures: Yes - *Social History Last grade of school completed: High school graduate Smoking Status: Current every day smoker Tobacco Type: cigarettes # Packs/Day (cigarettes): 1 Alcohol Intake: never Substance Use Type: marijuana, former substance user *Occupational Status:: retired, disabled Housing: house Household Members: children *Travel in the last 8 weeks: None Family Hx:: Cancer Review of Systems - Review of Systems Review of systems:: pertinent systems reviewed and negative unless documented below Meds Home Medications Medication Instructions Recorded Confirmed Type budesonide-formoterol HFA 80 2 puff INHALATION BID #10.2 g 03/22/21 05/11/21 Rx mcg-4.5 mcg/actuation aerosol inhaler Albuterol Sulfate [Albuterol See Rx Instructions .ROUTE .COMPLEX 04/12/21 05/11/21 History Sulfate Hfa] Alendronate Sodium [Fosamax 70mg 70 mg PO WEEKLY 04/12/21 05/11/21 History Tablet] Esomeprazole Magnesium 40 mg PO DAILY 04/12/21 05/11/21 History Triamcinolone Acetonide 1 applic TOPICAL TID 04/12/21 05/11/21 History carBAMazepine [Tegretol] 300 mg PO BID 04/12/21 05/11/21 History Allergies Allergy/AdvReac Type Severity Reaction Status Date / Time codeine AdvReac Mild Nausea Verified 05/11/21 06:16 Exam Vital signs and Labs for Last 24 Hours: Temp Pulse Resp BP Pulse Ox 97.0 F L 59 L 18 146/83 H 97 05/11/21 06:20 05/11/21 06:20 05/11/21 06:20 05/11/21 06:20 05/11/21 06:20 I & O for Last 24 hours: Intake & Output 05/08/21 05/09/21 05/10/21 05/11/21 11:59 11:59 11:59 11:59 Weight 100 lb - Constitutional no acute distress - *Routine HEENT Exam Head: Present: normocephalic Eye: Present: EOMI, PERRL ENT: Present: mucous membranes moist - *Routine Neck Exam Present: supple. Absent: lymphadenopathy - *Routine Respiratory Exam Present: CTA bilaterally - *Routine Cardiovascular Exam Present: RRR - *Routine Abdominal Exam Present: soft, normoactive bowel sounds. Absent: tenderness - *Routine Rectal Exam Rectal:: deferred - *Routine Genitalia Exam Genitalia:: deferred - *Routine Extremities Exam Absent: cyanosis, clubbing, edema - *Routine Skin Exam Present: warm. Absent: rash - *Routine Neurological Exam Present: alert, oriented X3 Assessment and Plan - Assessment and plan all Dx Assessment and Plan for all problems:: Excision of skin lesion.
--- NOTE | 2021-05-11 07:43 | HMH.OPNOTE ---
Date of procedure: 05/11/21 Pre-op Diagnosis:: Skin lesion on Back Post-op Diagnosis:: Same Procedure performed:: Excision of skin lesion from the back (excisional length 3.0 cm) with intermediate complexity closure Surgeon:: Alejandro Garay MD PROFESSOR OF COMMUNICATION:: Justina Felix Anesthesia: LMA Estimated blood loss (mL): 3 Clinical Note:: Patient is a 60-year-old female referred by Cristiane Burrows for mole on her back. She states that she has had a small area present for about 2 years. However it has increased in size and she has some itching discomfort. It is quite bothersome to her. She was seen in the office and found to have a likely keratosis on her back. I offered her excision. I did discuss with her doing this as a local anesthetic. She would prefer to have this done under some sedation. Operative findings:: Skin lesion Operative note:: Patient was taken to the operating room. Anesthesia was induced via LMA. She was positioned in right lateral position. The area was prepped and draped. Lesion was marked the skin marker for planned transverse incision approximately 3 cm with minimal grossly negative margins. Local anesthetic was infiltrated. Full-thickness skin incision was made. Lesion was dissected free from the underlying subcutaneous tissues. It was sent off as a specimen. Hemostasis was achieved with electrocautery. Deep dermal tissues were reapproximated with interrupted 3-0 Vicryl. Skin was closed with interrupted 4-0 nylon. Clean dry sterile dressing was applied. Condition: stable Disposition: PACU Specimens:: Skin lesion Complications:: None immediately apparent
--- NOTE | 2021-05-11 07:48 | P.PN_ITS ---
[facility] Anesthesia Record Part I Intake, IV Amount: 800 Estimated blood loss (mL): 0 Urine output (mL): 0 Blood Pressure: 156/54 SaO2: 100 Pulse Rate: 58 Respiratory Rate: 16 Temperature: 97 F Patient is:: Drowsy, Oral/Nasal airway Stable to PACU at:: 07:46
--- NOTE | 2021-05-14 12:35 | HMH.ANESII ---
[facility] Anesthesia Record Part II Discharge Time: 08:26 Destination: [facility] PACU nurse assessment reviewed?: Yes Patient Condition:: Good Anesthesia Complications:: None Swallowing reflex intact?: Yes Cyanosis?: No Blood Pressure: 148/85 Pulse Rate: 52 Temperature: 97.6 F Mental Status: Alert & Oriented Pain level:: 0 Nausea and/or vomitting:: None Intake, IV Amount: 1,500
[2021-05-14 12:36] VITALS: BP 148/85; PULSE 52; TEMP 36.4
== END 2021-05-11 08:37 | disposition home or self-care (01) ==
LOC: OR 06:07
PROVIDERS: PCP Physician Assistant; Visit Provider Surgery
DX: L82.1 Other seborrheic keratosis (principal); R20.8 Other disturbances of skin sensation; R23.8 Other skin changes; D22.5 Melanocytic nevi of trunk; J44.9 Chronic obstructive pulmonary disease, unspecified; K21.9 Gastro-esophageal reflux disease without esophagitis; R56.9 Unspecified convulsions; M19.90 Unspecified osteoarthritis, unspecified site; F12.11 Cannabis abuse, in remission; Z72.0 Tobacco use; Z88.6 Allergy status to analgesic agent; Z79.899 Other long term (current) drug therapy
CPT/HCPCS: 11403; 12031; 88305; 96374

== ENCOUNTER → 2021-09-15 10:48 | Outpatient (CLI) | payer MEDICARE, MEDICAID, SELFPAY | PROVIDERS: PCP Physician Assistant; Visit Provider Nurse Practitioner | DX: Z20.822 Contact with and (suspected) exposure to COVID-19 (principal) | CPT/HCPCS: C9803; U0003; U0005 ==

== ENCOUNTER → 2022-04-19 13:06 | Outpatient (POV) | payer MEDICARE, MEDICAID, SELFPAY | PROVIDERS: Visit Provider Dermatology | DX: Z00.00 Encounter for general adult medical examination without abnormal findings (principal) ==

== ENCOUNTER → 2022-09-14 15:30 | Outpatient (CLI) | payer MEDICARE, SELFPAY ==
--- NOTE | 2022-09-14 15:36 | XR_ITS ---
FINAL REPORT CLINICAL HISTORY: cough X 9 MONTHS FINDINGS: TWO-VIEW CHEST The heart size is normal. The patient is status post median sternotomy. The lungs are hyperinflated consistent with COPD. There is a focal opacity in left mid lung, likely represents pneumonia but poorly defined nodule is not excluded. There are postoperative changes in the lower cervical spine. There is no pneumothorax. IMPRESSION: Left midlung opacity, may represent pneumonia but poorly defined nodule is not excluded. Recommend follow-up radiographs. Reviewed, Interpreted and Dictated by Alejandro Atkins III, MD Transcribed by Emily Lynch Authenticated and [facility]
== END ==
PROVIDERS: PCP Physician Assistant; Visit Provider Student in an Organized Health Care Education/Training Program
DX: R05.9 Cough, unspecified (principal)
CPT/HCPCS: 71046

== ENCOUNTER → 2022-09-30 11:08 | Outpatient (CLI) | payer MEDICARE, MEDICAID, SELFPAY ==
--- NOTE | 2022-09-30 11:14 | CT_ITS ---
FINAL REPORT CLINICAL HISTORY: lung cancer screening, smokes 1/2 pk a day x 40yrs, copd COMPARISON: 02/15/2021, 02/20/2021 FINDINGS: CTDI vol (mGy): 2.90 DLP: 108.[address] images of the chest were obtained using the low-dose protocol for screening. There is no evidence of mediastinal or hilar mass or adenopathy. No axillary mass or adenopathy is identified. On the lung window images, a new, 22 mm nodule is seen in the lateral left upper lobe. There is severe emphysema and mild pulmonary scarring. A calcified granuloma is again seen in the right lower lobe. IMPRESSION: New 22 mm nodule in the lateral left upper lobe. Lung RADS category 4B. Recommend PET-CT and/or CT-guided FNA. Reviewed, Interpreted and Dictated by Alejandro Atkins III, MD Transcribed by Adriana Hernandez Authenticated and [facility]
== END ==
PROVIDERS: PCP Physician Assistant; Visit Provider Student in an Organized Health Care Education/Training Program
DX: Z87.891 Personal history of nicotine dependence (principal); Z12.2 Encounter for screening for malignant neoplasm of respiratory organs
CPT/HCPCS: 71271

== ENCOUNTER → 2022-10-11 12:49 | Outpatient (CLI) | payer MEDICARE, MEDICAID, SELFPAY ==
[2022-10-11 12:54] LABS: MANUAL DIFFERENTIAL MANUAL DIFFERENTIAL (MANUAL DIFF)
[2022-10-11 13:28] LABS: Basophils # 0.1 K/mm3 (0-0.2); Basophils % 1.4 % (0.1-2.0); Eosinophils # 0.1 K/mm3 (0.0-0.4); Eosinophils % 1.5 % (0.1-12.0); Hematocrit 50.1 % (37.0-47.0); Hemoglobin 16.1 g/dL (12.2-16.2); Lymphocytes # 2.1 K/mm3 (0.7-4.5); Lymphocytes % 29.1 % (10-50); Mean Corpuscular Hemoglobin 31.2 pg (27.0-31.2); Mean Corpuscular Volume 97.5 fl (81-99); Monocytes # 0.5 K/mm3 (0.1-1.0); Monocytes % 6.8 % (1.7-9.3); Neutrophils # 4.4 K/mm3 (1.8-7.8); Neutrophils % 61.2 % (37.0-80.0); Platelet Count 342 K/mm3 (142-424); Red Blood Count 5.14 M/mm3 (4.20-5.40); Red Cell Distribution Width 13.1 % (11.5-17.5); White Blood Count 7.1 K/mm3 (4.8-10.8)
[2022-10-11 13:39] LABS: Activated Partial Thrombo Time 26.2 seconds (22.8-30.6); INR 0.96 (0.9-1.1); Prothrombin Time 10.4 seconds (10.1-12.5)
[2022-10-11 13:54] LABS: Blood Urea Nitrogen 11 mg/dl (7-17); Estimated Glomerular Filt Rate 101 ml/min (>60); GFR (African American) 122 ML/MIN (>60)
[2022-10-11 14:04] LABS: Eosinophils % 1 % (0-3); Lymphocytes % 25 % (10-50); Monocytes % 7 % (2-9); Neutrophils % 67 % (42-76); Platelet Estimate Normal; RBC Morphology Normal; Total Cells Counted 100
== END ==
PROVIDERS: PCP Physician Assistant; Visit Provider Student in an Organized Health Care Education/Training Program
DX: R91.1 Solitary pulmonary nodule (principal); R79.1 Abnormal coagulation profile
CPT/HCPCS: 36415; 82565; 84520; 85007; 85014; 85018; 85048; 85049; 85610; 85730

== ENCOUNTER 2022-10-12 07:00 | Outpatient (CLI) | payer MEDICARE, MEDICAID, SELFPAY ==
[2022-10-12] VITALS (10 sets, daily range): BP systolic 101–142; BP diastolic 63–80; PULSE 52–63; RESP 16–19; TEMP 36.3–36.4; O2SAT 96–99; BMI 19.0
--- NOTE | 2022-10-12 07:00 | CT_ITS ---
FINAL REPORT CLINICAL HISTORY: left lung nodule FINDINGS: CT GUIDE LUNG BIOPSY. HISTORY: Lung nodule ATTENDING PHYSICIAN: Dr. Dutta PHYSICIAN BINDERY MACHINE FEEDER OFFBEARER: Stanislaw Clark PA-C PROCEDURE: After informed consent was obtained and a timeout was performed, the patient was prepped and draped in usual sterile fashion over the left upper lateralchest. Utilizing local anesthesia and sterile technique with a coaxial system, access to lesion was obtained. 5 20-gauge core biopsy passes were made. Post biopsy films demonstrate a small amount of likely introduced air. There was no significant pneumothorax. The patient received mild procedural sedation. The patient tolerated the procedure well and left the department in good condition. IMPRESSION: Status post CT-guided biopsy of a lung nodule. PROCEDURAL SEDATION: 2 mg of IV Versed and 100 mcg of Fentanyl were administered. Continuous vital sign monitoring was used. An RN was present during the sedation process. Overall sedation time was 30 minutes. Reviewed, Interpreted and Dictated by Alexandr Dutta MD Transcribed by DIANELYS Santa Authenticated and [facility]
--- NOTE | 2022-10-12 07:49 | P.PN_ITS ---
[facility] Disclaimer: The information contained in this section may have been updated after the patient was seen, as this information can be updated by other users. Medical History Back injury Bacterial vaginosis Benign neoplasm eyebrow skin Brain aneurysm Encounter for removal of skin lesion Hip pain Lesion of right shoulder Lumbar canal stenosis Neck pain Strain of thoracic spine Surgical History History of appendectomy History of hysterectomy Family History Other Esophageal cancer Lung cancer Social History Smoking Status: Current every day smoker tobacco type: cigarettes packs per day: 1 second hand exposure: No alcohol intake: never substance use type: former substance user and marijuana current occupational status: retired and disabled Travel in the last 8 weeks: None household members: children housing: house current occupational exposures/hazards: No caffeine: Yes [facility] Anesthesia Checklist Patient Identification Patient Identification: Arm Band Structural Data Admitted From: Other Planned Operative Procedure/s: CT Guided Lung Biopsy Consent for Planned Operative Procedure(s) Verified: Yes Verified Documents: Surgical Consent and History and Physical NPO Status Verified Time NPO: 00:00 Additional verifications Anesthesia Reactions: No Hx Blood Transfusions: No Blood Transfusion Reaction: No Airway Assessment C-Spine Mobility Assessed: Yes TMJ Mobility Assessed: Yes Dentition: Edentulous Neurological Assessment Level of Consciousness: Awake and Alert Anesthesia Plan Anesthesia Risk discussed: Yes Anesthesia Plan: Verified ASA Class: III Anesthesia Type: MAC
--- NOTE | 2022-10-12 08:57 | XR_ITS ---
FINAL REPORT CLINICAL HISTORY: POST BIOPSY COMPARISON: 09/14/2022 FINDINGS: PORTABLE CHEST Sternotomy wires are present. There cervical fusion hardware. The heart is normal in size. The mediastinum is unremarkable. There is a density in the periphery of the left lung. There is no pneumothorax. IMPRESSION: Stable opacity in the periphery of the left lung. No evidence of pneumothorax. Reviewed, Interpreted and Dictated by Alexandr Dutta MD Transcribed by May Kendall Authenticated and [facility]
--- NOTE | 2022-10-12 11:00 | XR_ITS ---
FINAL REPORT CLINICAL HISTORY: 2 HOUR POST BIOPSY COMPARISON: Earlier same day FINDINGS: The heart size is normal. The mediastinum is normal. Persistent density peripheral left lung. There are no pleural effusions. There is no pneumothorax. There is no osseous abnormality. IMPRESSION: Persistent density peripheral left lung. No pneumothorax post biopsy. Reviewed, Interpreted and Dictated by Alexandr Dutta MD Transcribed by Juani Brasher Authenticated and [facility] [place] [place]
== END 2022-10-12 12:15 | disposition home or self-care (01) ==
PROVIDERS: PCP Physician Assistant; Visit Provider Student in an Organized Health Care Education/Training Program
DX: R91.1 Solitary pulmonary nodule (principal)
CPT/HCPCS: 32408; 71045; 77012; 88305; 88312; 88333; 88342

== ENCOUNTER → 2022-10-26 12:00 | Outpatient (CLI) | payer MEDICARE, MEDICAID, SELFPAY ==
[2022-10-26 19:07] LABS: Amphetamine/Metha Screen,Urine Negative ng/ml (<1000); Barbiturates Screen,Urine Negative ng/ml (<200)
[2022-10-26 19:08] LABS: Benzodiazepines Screen,Urine Positive ng/ml (<200)
[2022-10-26 19:09] LABS: Cannabinoid Screen,Urine Positive ng/ml (<50); Cocaine Screen,Urine Negative ng/ml (<300)
[2022-10-26 19:10] LABS: Methadone Screen,Urine Negative ng/ml (<300); Opiate Screen,Urine Negative ng/ml (<300)
[2022-10-26 19:11] LABS: Phencyclidine Screen,Urine Negative ng/ml (<25)
== END ==
PROVIDERS: PCP Emergency Medicine; Visit Provider Emergency Medicine
DX: M54.2 Cervicalgia (principal)
CPT/HCPCS: 80305

== ENCOUNTER 2022-11-30 15:12 | Emergency (ER) | payer MEDICARE, MEDICAID, SELFPAY ==
[2022-11-30 15:22] VITALS: BP 111/65; PULSE 78; RESP 18; TEMP 36.8; O2SAT 96; BMI 20.2
--- NOTE | 2022-11-30 15:35 | EXP.UTC ---
Discharge Plan Disposition Patient Disposition: Home, Self-Care Condition: Good Prescriptions Prescriptions: New cephalexin 500 mg capsule 500 mg PO QID Qty: 40 0RF mupirocin 2 % ointment 1 applic topical TID 7 Days Qty: 15 0RF No Action albuterol sulfate 90 mcg/actuation HFA aerosol inhaler 2 puff inhalation Q6H PRN Stiolto Respimat 2.5-2.5 mcg/actuation mist 2 puff inhalation DAILY 90 Days Qty: 4 3RF carbamazepine 200 mg tablet See Rx Instructions .ROUTE .COMPLEX Qty: 90 3RF Dose Instruction: TAKE 1 & 1/2 TABLETS BY MOUTH 2 TIMES A DAY FOR SEIZURES Rx Instructions: TAKE 1 & 1/2 TABLETS BY MOUTH 2 TIMES A DAY FOR SEIZURES Referrals Follow up/Referrals: Jesus Levi MD [Primary Care Provider] - See instructions Activity Restrictions/Add. Instructions Additional Instructions/Restrictions: Keep the wound clean and dry. Keep a dressing on it if you are going to be getting it dirty. Let the steri strips peel off on their own. Use a non-stick dressing when you put a dressing over it. Watch the wound for signs of infection, such as redness, swelling, drainage, fever. etc. Take tylenol for pain. Follow up with your regular doctor. GO TO THE ER FOR ANY WORSENING SYMPTOMS OR CONCERNS. Clinical Impressions Clinical Impression: Skin tear of right forearm without complication Instructions Patient Instructions: DI for Avulsion Laceration (Not Requiring Sutures) Discharge ED Provider: [place]ales [facility] [place] General Stated complaint: Ao05/10@1430 Lac to RT forearm Mode of Arrival: Ambulatory Source of Information: Patient Limitations: No Limitations Time Seen by Provider: 11/30/22 15:35 Description of Symptoms (Recalled from Triage Doc. by RN): pt presents with a skin tear on her RFA from blunt trauma of falling plywood. pt states this occured at 1430. minimal bleeding present. 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 She has a skin tear of the right forearm. She denies any other injury. Related Data Home Medications Medication Instructions Recorded Confirmed albuterol sulfate 90 mcg/actuation 2 puff inhalation Q6H PRN 11/07/22 11/07/22 aerosol inhaler Previous Rx's Medication Instructions Recorded carbamazepine 200 mg tablet See Rx Instructions .Route 10/26/22 .COMPLEX #90 tabs tiotropium 2.5 mcg-olodaterol 2.5 2 puff inhalation DAILY 90 days #4 11/07/22 mcg/actuation mist for inhalation grams (Stiolto Respimat) cephalexin 500 mg capsule 500 mg PO QID #40 caps 11/30/22 mupirocin 2 % topical ointment 1 applic topical TID 7 days #15 11/30/22 grams Allergies Allergy/AdvReac Type Severity Reaction Status Date / Time codeine AdvReac Mild Nausea Verified 11/30/22 15:32 Worker's Comp Is this a Worker's Comp case?: No [facility] Disclaimer: The information contained in this section may have been updated after the patient was seen, as this information can be updated by other users. Medical History Back injury Bacterial vaginosis Benign neoplasm eyebrow skin Brain aneurysm Dyspnea on exertion Encounter for removal of skin lesion Hip pain Lesion of right shoulder Lumbar canal stenosis Neck pain Nodule of left lung Smoking greater than 30 pack years Strain of thoracic spine Surgical History History of appendectomy History of hysterectomy Family History Other Esophageal cancer Lung cancer Social History (Revi
[2022-11-30 16:20] VITALS: BP 111/65; PULSE 78; RESP 18; TEMP 36.8
== END 2022-11-30 16:21 | disposition home or self-care (01) ==
PROVIDERS: Emergency Provider Nurse Practitioner Family; PCP Emergency Medicine
DX: S51.801A Unspecified open wound of right forearm, initial encounter (principal); F17.210 Nicotine dependence, cigarettes, uncomplicated; W20.8XXA Other cause of strike by thrown, projected or falling object, initial encounter
CPT/HCPCS: 12002; 99212; 99214; G0463

== ENCOUNTER → 2022-12-26 15:06 | Outpatient (CLI) | payer MEDICARE, MEDICAID, SELFPAY ==
[2022-12-26 17:57] LABS: Adenovirus,PCR Not Detected (NotDetected); Bordetella Pertussis Not Detected (NotDetected); Chlamydophila Pneumoniae, PCR Not Detected (NotDetected); Coronavirus 19, PCR Not Detected (NotDetected); Coronavirus 229E Not Detected (NotDetected); Coronavirus NL63 Not Detected (NotDetected); Coronavirus OC43 Not Detected (NotDetected); Coronovirus HKU1,PCR Not Detected (NotDetected); Human Metapneumovirus Not Detected (NotDetected); Influenza A, PCR Not Detected (NotDetected); Influenza AH1, 2009 Not Detected (NotDetected); Influenza AH1, PCR Not Detected (NotDetected); Influenza AH3,PCR Not Detected (NotDetected); Influenza B, PCR Not Detected (NotDetected); Mycoplasma Pneumoniae, PCR Not Detected (NotDetected); Parainfluenza 1, PCR Not Detected (NotDetected); Parainfluenza 2, PCR Not Detected (NotDetected); Parainfluenza 3, PCR Not Detected (NotDetected); Parainfluenza 4, PCR Not Detected (NotDetected); Respiratory Syncytial Virus Not Detected (NotDetected); Rhinovirus/Enterovirus Not Detected (NotDetected)
== END ==
PROVIDERS: PCP Student in an Organized Health Care Education/Training Program; Visit Provider Student in an Organized Health Care Education/Training Program
DX: R05.9 Cough, unspecified (principal)
CPT/HCPCS: 87581; 87632; 87635; 87798; C9803; U0003; U0005

== ENCOUNTER → 2023-01-02 12:10 | Outpatient (CLI) | payer MEDICARE, MEDICAID, SELFPAY ==
--- NOTE | 2023-01-02 13:42 | CT_ITS ---
FINAL REPORT TECHNIQUE: Axial imaging of the chest was obtained without contrast. Reformatted images were also obtained and reviewed.This study was performed with techniques to keep radiation doses as low as reasonably achievable, (ALARA). Individualized dose reduction technique using automated exposure control or adjustment of mA and/or kV according to the patient's size were employed. CLINICAL HISTORY: Nodule F/U 3 mth COMPARISON: 09/30/2022 FINDINGS: There is no axillary adenopathy. There is no hilar or mediastinal mass or adenopathy. Heart size is normal. There is no pericardial or pleural effusion. Limited images of the upper abdomen are unremarkable. In the lateral left upper lobe is an 11 mm nodule which previously measured 22 mm. There is moderate emphysema and mild scarring. No new pulmonary nodule is identified. IMPRESSION: Partially improved left upper lobe nodule. Reviewed, Interpreted and Dictated by Alejandro Atkins III, MD Transcribed by Adriana Hernandez Authenticated and [facility]
== END ==
PROVIDERS: PCP Physician Assistant; Visit Provider Internal Medicine Pulmonary Disease
DX: R91.8 Other nonspecific abnormal finding of lung field (principal)
CPT/HCPCS: 71250; 94060; 94618; 94726; 94729

== ENCOUNTER → 2023-02-01 10:14 | Outpatient (CLI) | payer MEDICARE, MEDICAID, SELFPAY ==
--- NOTE | 2023-02-01 10:16 | CA_ITS ---
FINAL REPORT TECHNIQUE: Graded compression, spectral analysis and ultrasound images of the venous system of the upper extremity were obtained. CLINICAL HISTORY: pain and swelling of left upper extremity FINDINGS: The jugular vein, subclavian vein, axillary vein, brachial vein, cephalic vein and basilic venous system are fully compressible and demonstrate no evidence of thrombosis. IMPRESSION: No evidence of thrombosis of the venous system of the left upper extremity. Reviewed, Interpreted and Dictated by Alejandro Atkins III, MD Transcribed by Juani Brasher Authenticated and [facility]
== END ==
PROVIDERS: PCP Physician Assistant; Visit Provider Physician Assistant
DX: M79.602 Pain in left arm (principal); M79.89 Other specified soft tissue disorders
CPT/HCPCS: 93971

== ENCOUNTER 2023-02-14 20:21 | Observation (INO) | payer MEDICARE, MEDICAID, SELFPAY ==
[2023-02-14] VITALS (14 sets, daily range): BP systolic 80–159; BP diastolic 55–94; PULSE 67–99; RESP 14–23; TEMP 36.6–36.7; O2SAT 93–97; BMI 19.5
--- NOTE | 2023-02-14 20:19 | XR_ITS ---
PROCEDURE INFORMATION: Exam: XR Chest Exam date and time: 02/14/2023 8:26 PM Age: 62 years old Clinical indication: Other: AMS, seizure TECHNIQUE: Imaging protocol: Radiologic exam of the chest. Views: 1 view. COMPARISON: CT CHEST WO CON 01/02/2023 1:55 PM FINDINGS: Lungs: Previous granulomatous exposure. Nodule seen on previous CT in the left upper lobe not well appreciated on current study. Emphysematous changes. No focal consolidation. Pleural spaces: Unremarkable. No pleural effusion. No pneumothorax. Heart/Mediastinum: Unremarkable. No cardiomegaly. Bones/joints: Median sternotomy wires. IMPRESSION: Nodule seen on previous CT in the left upper lobe not well appreciated on current study.
--- NOTE | 2023-02-14 20:19 | CT_ITS ---
PROCEDURE INFORMATION: Exam: CT Head Without Contrast Exam date and time: 02/14/2023 8:34 PM Age: 62 years old Clinical indication: Injury or trauma; Additional info: Fall, head trauma TECHNIQUE: Imaging protocol: Computed tomography of the head without contrast. Radiation optimization: All CT scans at this facility use at least one of these dose optimization techniques: automated exposure control; mA and/or kV adjustment per patient size (includes targeted exams where dose is matched to clinical indication); or iterative reconstruction. REPORTING DATA: Count of CT and Cardiac NM exams in prior 12 months: This patient has received 3 known CTs and 0 known cardiac nuclear medicine studies in the 12 months prior to the current study. COMPARISON: CT HEAD/BRAIN WO CON 02/20/2021 10:55 AM FINDINGS: Brain: Stable encephalomalacia right frontal lobe. Central and cortical brain atrophy evident, appropriate for patient age. There is nonspecific periventricular low attenuation, likely microangiopathic disease. No acute intracranial hemorrhage. Cerebral ventricles: No ventriculomegaly. Paranasal sinuses: Visualized sinuses are unremarkable. No fluid levels. Mastoid air cells: Visualized mastoid air cells are well aerated. Bones/joints: Left temporal craniotomy. Soft tissues: Unremarkable. Other findings: Aneurysm clip with prominent streak artifact. IMPRESSION: No acute intracranial abnormality.
--- NOTE | 2023-02-14 20:26 | ECG_ITS ---
APPROVED REPORT Exam: Resting ECG HR:94 bpm ECG Measurements Heart Rate 94 AXES SD 140 P 84 QRSd 82 QRS 83 QT 367 T 96 QTc 418 Conclusion SINUS RHYTHM NONSPECIFIC ST & T-WAVE ABNORMALITY BORDERLINE ECG UNCONFIRMED REPORT Electronically signed by : Silas Baires MD 02/14/2023 21:10:08
[2023-02-14 20:27] LABS: POC Glucose,Bedside 153 (70-110)
[2023-02-14 20:31] LABS: Basophils # 0.1 K/mm3 (0-0.2); Eosinophils # 0.3 K/mm3 (0.0-0.4); Eosinophils % 2.8 % (0.1-12.0); Hematocrit 45.6 % (37.0-47.0); Hemoglobin 14.2 g/dL (12.2-16.2); Lymphocytes # 4.6 K/mm3 (0.7-4.5); Lymphocytes % 48.6 % (10-50); Mean Corpuscular HGB Conc 31.1 g/dL (31.8-35.4); Mean Corpuscular Hemoglobin 30.7 pg (27.0-31.2); Mean Platelet Volume 9.3 fl (7.4-10.4); Monocytes # 0.7 K/mm3 (0.1-1.0); Monocytes % 6.9 % (1.7-9.3); Neutrophils # 3.9 K/mm3 (1.8-7.8); Neutrophils % 40.7 % (37.0-80.0); Platelet Count 345 K/mm3 (142-424); Red Blood Count 4.61 M/mm3 (4.20-5.40); Red Cell Distribution Width 13.6 % (11.5-17.5); White Blood Count 9.5 K/mm3 (4.8-10.8)
--- NOTE | 2023-02-14 20:44 | HMH.EDGENADL ---
Discharge Plan Disposition Patient Disposition: Admitted Chief Complaint: Seizure Prescriptions Prescriptions: No Action fluticasone propionate [Flonase Allergy Relief] 50 mcg/actuation spray,suspension 1 spray intranasal BID 90 Days Qty: 16 3RF Rx Instructions: administer into each nostril fluticasone propionate [Flovent HFA] 110 mcg/actuation HFA aerosol inhaler 1 puff inhalation BID 90 Days Qty: 12 3RF benzonatate 100 mg capsule 100 mg PO BID PRN (Reason: cough) Qty: 30 0RF enoxaparin [Lovenox] 80 mg/0.8 mL syringe 70 mg SQ DAILY Qty: 4 0RF Rx Instructions: Discard 0.1 ml to inject 0.7 ml daily for anticoagulation hydroxyzine HCl 50 mg tablet 50 mg PO HS Qty: 30 5RF Stiolto Respimat 2.5-2.5 mcg/actuation mist 2 puff inhalation DAILY 90 Days Qty: 4 3RF carbamazepine 200 mg tablet See Rx Instructions .ROUTE .COMPLEX Qty: 90 3RF Dose Instruction: TAKE 1 & 1/2 TABLETS BY MOUTH 2 TIMES A DAY FOR SEIZURES Rx Instructions: TAKE 1 & 1/2 TABLETS BY MOUTH 2 TIMES A DAY FOR SEIZURES albuterol sulfate 90 mcg/actuation HFA aerosol inhaler 2 puff inhalation Q6H PRN (Reason: shortness of breath or wheezing) Qty: 6.7 0RF Clinical Impressions Clinical Impression: Tonic clonic convulsion, Status epilepticus Discharge ED Provider: Boyd Mckenzie General Adult [facility] General Chief complaint: Seizure Stated complaint: seizure Time Seen by Provider: 02/14/23 20:25 Mode of Arrival: EMS Source of Information: EMS Limitations: No Limitations Description of Symptoms (Recalled from ER Triage Doc. by RN): Pt to ED via [facility] for witnessed seizure at [employer]. Pt was playing dice at [employer] she had seizure. No reports of patient hitting head. Upon arrival of [facility] patient started rocked head back and forth, with eye flickering, convulsions witnessed. Seizure lasted approx 3 min, currently in postdyctal state. Pt is protecting airway, sats 96 on room air History of Present Illness HPI narrative: This is a 62-year-old female with history of hypertension, hyperlipidemia, COPD, seizure disorder presenting with seizure. Patient was) when she had a witnessed seizure. EMS was called. On arrival, patient's glucose 149, patient had another witnessed seizure on arrival to the ED. Returned almost to neurologic baseline in between seizures, but patient still postictal at beginning of second seizure. Related Data Previous Rx's Medication Instructions Recorded carbamazepine 200 mg tablet See Rx Instructions .Route 10/26/22 .COMPLEX #90 tabs tiotropium 2.5 mcg-olodaterol 2.5 2 puff inhalation DAILY 90 days #4 11/07/22 mcg/actuation mist for inhalation grams (Stiolto Respimat) albuterol sulfate 90 mcg/actuation 2 puff inhalation Q6H PRN 12/15/22 aerosol inhaler shortness of breath or wheezing #6.7 grams benzonatate 100 mg capsule 100 mg PO BID PRN cough #30 caps 01/12/23 fluticasone propionate 110 1 puff inhalation BID 90 days #12 01/12/23 mcg/actuation HFA aerosol inhaler grams (Flovent HFA) fluticasone propionate 50 1 spray intranasal BID allergy 01/12/23 mcg/actuation nasal symptoms 90 days #16 grams spray,suspension (Flonase Allergy Relief) enoxaparin 80 mg/0.8 mL 70 mg (0.7 mL) SQ DAILY #4 mL 01/31/23 subcutaneous syringe (Lovenox) hydroxyzine HCl 50 mg tablet 50 mg PO HS #30 tabs 01/31/23 Allergies Allergy/AdvReac Type Severity Reaction Status Date / Time codeine AdvReac Mild Nausea Verified 01/31/23 09:19 [facility] Disclaimer: The information contained in this section may have been updated after the patient was seen, as this information can be updated by other users. Medical History (Updated 02/14/23 @ 23:07 by Boyd Mckenzie MD) Back injury Bacterial vaginosis Benign neoplasm eyebrow skin Brain aneurysm Chronic cough Dyspnea on exertion Encounter for removal of skin lesion Hip pain Lesion of right shoulder Lumbar canal stenosis Neck
[2023-02-14 21:02] LABS: Acetaminophen < 10 ug/ml (10-30); Alanine Aminotransferase 39 U/L (12-78); Albumin Level 4.7 g/dl (3.5-5.0); Albumin/Globulin Ratio 1.6 (1.1-1.8); Alkaline Phosphatase 112 U/L (38-126); Anion Gap 29.7 mEq/L (5-15); Aspartate Amino Transferase 45 U/L (14-36); Bilirubin,Total 0.2 mg/dl (0.2-1.3); Blood Urea Nitrogen 11 mg/dl (7-17); Chloride 109 mmol/L (98-107); Creatinine Clearance Estimated 41 mL/min (50-200); Estimated Glomerular Filt Rate 63 ml/min (>60); GFR (African American) 77 ML/MIN (>60); Globulin 2.9 g/dL (1.3-3.2); Glucose 169 mg/dl (74-100); Potassium 3.7 mmoL/L (3.5-5.1); Salicylate < 1.0 mg/dL (2.0-20.0); Sodium 144 mmol/L (136-145); Total Protein,Serum 7.6 g/dl (6.3-8.2)
[2023-02-14 21:03] LABS: Carbon Dioxide 9 mmol/L (22.0-30.0)
--- NOTE | 2023-02-14 21:15 | PC.NURSE ---
obtained straight cath urine specimen. Sandra care provided since patient became incontinent of bowel and bladder, and placed in gown. sheets changed and covered with warm blanket. Pt became coherent throughout process and could answer her name, and where she was. Speech slightly slurred, but intelligible. Resting comfortably at this time, connected to continuous monitoring.
[2023-02-14 21:19] LABS: T4 (Thyroxine) 7.9 ug/dl (5.53-11.0)
[2023-02-14 21:31] LABS: Amphetamine/Metha Screen,Urine Negative ng/ml (<1000); Barbiturates Screen,Urine Negative ng/ml (<200)
[2023-02-14 21:32] LABS: Benzodiazepines Screen,Urine Positive ng/ml (<200)
[2023-02-14 21:33] LABS: Cannabinoid Screen,Urine Positive ng/ml (<50); Cocaine Screen,Urine Positive ng/ml (<300)
[2023-02-14 21:34] LABS: Methadone Screen,Urine Negative ng/ml (<300)
[2023-02-14 21:35] LABS: Phencyclidine Screen,Urine Negative ng/ml (<25)
[2023-02-14 21:36] LABS: Opiate Screen,Urine Negative ng/ml (<300)
[2023-02-14 21:48] LABS: Lactic Acid 12.4 mmol/L (0.7-2.1)
--- NOTE | 2023-02-14 21:52 | PC.NURSE ---
notified of critical lactic 12.4
--- NOTE | 2023-02-14 22:55 | PC.NURSE ---
on phone with hospitalist
--- NOTE | 2023-02-14 22:59 | PC.NURSE ---
House notified of need for bed.
--- NOTE | 2023-02-14 23:00 | PC.NURSE ---
hospitalist in room at this time.
--- NOTE | 2023-02-14 23:01 | PC.NURSE ---
Pt assigned to 202 for AMS to the hospitalist.OBS
--- NOTE | 2023-02-14 23:20 | PC.NURSE ---
Report called to MARGARITA Chavez on 2nd floor.
--- NOTE | 2023-02-14 23:31 | EXP.HP ---
History of Present Illness *Admission Date: 02/14/23 *Reason for visit:: AMS *History of present illness: 62 year old female presented to the ED via ems for seizure activity. EMS witnessed a seizure, then patient started seizing again upon arrival to the ED. Was given 4 mg of lorazepam has been postictal since. PMHX of carbamazepine use and seizure, HTN, HLD, and COPD. ED workup revealed head CT unremarkable, drug screen positive for benzodiazepines, marijuana, and cocaine. Her lactic was 12, TSH 21.8 and t4 7.9. Patient is unable to interact or provide history. Pt's friend sates she is noncompliant with her medications. The pt currently is seeing Dr. Rodriguez for a known lung nodule. In the ED she is requiring oxygen and additional fluid to maintain her oxygen saturation and blood pressure. She is normal sinus on the monitor. She responds to painful stimuli but unresponsive to voice. GCS of 9. Due to AMS, ED physician consulted hospitalist team for admission. Pt will be admitted for further medical management. [facility] Disclaimer: The information contained in this section may have been updated after the patient was seen, as this information can be updated by other users. Medical History (Updated 02/14/23 @ 23:49 by NENO Garzon) Back injury Bacterial vaginosis Benign neoplasm eyebrow skin Brain aneurysm Chronic cough Dyspnea on exertion Encounter for removal of skin lesion Hip pain Lesion of right shoulder Lumbar canal stenosis Neck pain Nodule of left lung Smoking greater than 30 pack years Strain of thoracic spine Surgical History History of appendectomy History of hysterectomy Family History Other Esophageal cancer Lung cancer Social History Smoking Status: Current every day smoker tobacco type: cigarettes packs per day: 1 second hand exposure: No alcohol intake: never substance use type: former substance user and marijuana current occupational status: retired and disabled Travel in the last 8 weeks: None household members: children housing: house current occupational exposures/hazards: No caffeine: Yes Review of Systems Review of Systems Review of systems:: unable to obtain Constitutional Comments: VIOLETTE Eyes Comments: VIOLETTE ENT Comments: VIOLETTE *Cardiovascular Cardiovascular: Reports other Comments: VIOLETTE *Respiratory Respiratory: Reports other Comments: VIOLETTE *Gastrointestinal Gastrointestinal: Reports other Comments: VIOLETTE *Genitourinary Genitourinary: Reports other Comments: VIOLETTE *Musculoskeletal Musculoskeletal: Reports other Comments: VIOLETTE *Neurologic Neurologic: Reports as per HPI Comments: VIOLETTE Meds Home Medications and Allergies Home Medications Medication Instructions Recorded Confirmed Type albuterol sulfate 90 mcg/actuation 2 puff inhalation Q6H PRN 12/15/22 02/15/23 Rx aerosol inhaler shortness of breath or wheezing #6.7 grams benzonatate 100 mg capsule 100 mg PO BID PRN cough #30 caps 01/12/23 02/15/23 Rx fluticasone propionate 50 1 spray intranasal BID allergy 01/12/23 02/15/23 Rx mcg/actuation nasal symptoms 90 days #16 grams spray,suspension (Flonase Allergy Relief) carbamazepine 200 mg tablet 300 mg PO BID seizures 02/15/23 02/15/23 History fluticasone propionate 110 1 puff inhalation BID Copd 02/15/23 02/15/23 History mcg/actuation HFA aerosol inhaler (Flovent HFA) hydroxyzine HCl 50 mg tablet 50 mg PO HS sleep 02/15/23 02/15/23 History tiotropium 2.5 mcg-olodaterol 2.5 2 puff inhalation DAILY Copd 02/15/23 02/15/23 History mcg/actuation mist for inhalation (Stiolto Respimat) New Prescriptions to Start Prescriptions: Allergies Allergy/AdvReac Type Severity Reaction Status Date / Time codeine AdvReac Mild Nausea Verified 01/31/23 09:19 Exam Data for Last 24
--- NOTE | 2023-02-14 23:52 | PC.NURSE ---
Completed Admission history from history in chart. Patient is currently AMS and not awake enough to answer questions.
[2023-02-15] VITALS: BP 90/60; PULSE 64; PULSE 67; RESP 22; TEMP 36.7; O2SAT 94; BMI 20.9
--- NOTE | 2023-02-15 00:22 | PC.NURSE ---
Primary RN and Charge nurse when through medication in purse and locked, medication and purse in senior contracts administrator room
[2023-02-15 00:36] LABS: Free T4 (Free Thyroxine) 0.91 ng/dl (0.78-2.19)
[2023-02-15 01:06] LABS: Reflex Lactic Add Lactic Reflex
[2023-02-15 01:38] LABS: Lactic Acid Follow Up (RFLX 1) 0.8 mmol/L (0.7-2.1)
[2023-02-15 04:00] VITALS: BP 128/91; PULSE 58; PULSE 59; RESP 16; TEMP 36.4; O2SAT 100; BMI 20.9
--- NOTE | 2023-02-15 05:11 | PC.NURSE ---
Since arriving to floor, Patent has remained AMS. Patient did wake up at one point as ask how she arrived to the hospital and what happened. RN informed patient of the situation. Patient went back to sleep after. no other issues were noted. Seizure precautions in place
[2023-02-15 05:58] LABS: Basophils % 0.4 % (0.1-2.0); Eosinophils # 0.1 K/mm3 (0.0-0.4); Eosinophils % 1.5 % (0.1-12.0); Hematocrit 41.7 % (37.0-47.0); Hemoglobin 13.1 g/dL (12.2-16.2); Lymphocytes # 2.6 K/mm3 (0.7-4.5); Lymphocytes % 31.3 % (10-50); Mean Corpuscular HGB Conc 31.4 g/dL (31.8-35.4); Mean Corpuscular Hemoglobin 30.7 pg (27.0-31.2); Mean Corpuscular Volume 97.8 fl (81-99); Mean Platelet Volume 8.7 fl (7.4-10.4); Monocytes # 0.5 K/mm3 (0.1-1.0); Monocytes % 6.3 % (1.7-9.3); Neutrophils # 5.1 K/mm3 (1.8-7.8); Neutrophils % 60.5 % (37.0-80.0); Platelet Count 274 K/mm3 (142-424); Red Blood Count 4.26 M/mm3 (4.20-5.40); Red Cell Distribution Width 13.5 % (11.5-17.5); White Blood Count 8.4 K/mm3 (4.8-10.8)
[2023-02-15 06:17] LABS: Anion Gap 4.7 mEq/L (5-15); Blood Urea Nitrogen 9 mg/dl (7-17); Calcium 7.8 mg/dl (8.4-10.2); Carbon Dioxide 26 mmol/L (22.0-30.0); Chloride 115 mmol/L (98-107); Creatinine Clearance Estimated 44 mL/min (50-200); Estimated Glomerular Filt Rate 101 ml/min (>60); GFR (African American) 122 ML/MIN (>60); Glucose 84 mg/dl (74-100); Potassium 3.7 mmoL/L (3.5-5.1); Sodium 142 mmol/L (136-145)
[2023-02-15 08:00] VITALS: BP 110/75; PULSE 67; PULSE 80; RESP 18; TEMP 36.6; O2SAT 93
--- NOTE | 2023-02-15 08:07 | EXP.DC.SUM ---
General Admission date:: 02/14/23 Discharge date: 02/15/23 HPI HPI HPI: 62 year old female presented to the ED via ems for seizure activity. EMS witnessed a seizure, then patient started seizing again upon arrival to the ED. Was given 4 mg of lorazepam has been postictal since. PMHX of carbamazepine use and seizure, HTN, HLD, and COPD. ED workup revealed head CT unremarkable, drug screen positive for benzodiazepines, marijuana, and cocaine. Her lactic was 12, TSH 21.8 and t4 7.9. Patient is unable to interact or provide history. Pt's friend sates she is noncompliant with her medications. The pt currently is seeing Dr. Rodriguez for a known lung nodule. In the ED she is requiring oxygen and additional fluid to maintain her oxygen saturation and blood pressure. She is normal sinus on the monitor. She responds to painful stimuli but unresponsive to voice. GCS of 9. Due to AMS, ED physician consulted hospitalist team for admission. Pt will be admitted for further medical management. Hospital Course Hospital Course Hospital Course: 62 year old female presented to the ED via ems for seizure activity. EMS witnessed a seizure, then patient started seizing again upon arrival to the ED. Was given 4 mg of lorazepam has been postictal since. PMHX of carbamazepine use and seizure, HTN, HLD, and COPD. ED workup revealed head CT unremarkable, drug screen positive for benzodiazepines, marijuana, and cocaine. Her lactic was 12, TSH 21.8 and t4 7.9. Patient is unable to interact or provide history. Pt's friend sates she is noncompliant with her medications. The pt currently is seeing Dr. Rodriguez for a known lung nodule. In the ED she is requiring oxygen and additional fluid to maintain her oxygen saturation and blood pressure. Mentation returned to baseline by morning. Stable for discharge home. No other seizure activity during hospitalization. Problems addressed as follows: Known history of seizure disorder. Presented in status epilepticus. Responded well to benzodiazepines. Was loaded with Keppra. Takes carbamazepine at home. Remained stable overnight with resumption to baseline mentation. GCS of 15 by morning. Recommend resuming her carbamazepine regimen at discharge. Was also prescribed intranasal Versed for treatment of seizure at home if has another episode. Recommend close follow-up with PCP to discuss further management and referral to neurology. Medically stable for discharge home at this time. COPD HLD HTN -Continue DuoNebs during admission. Resume home regimens. HYPOTHYROID -TSH 21.8 and t4 7.9. Started on levothyroxine 100 mcg. Needs repeat TSH level in 4 to 6 weeks. TOBACCO ABUSE -nicotine replacement therapy PRN Stable for discharge home. Close follow-up with PCP Exam Data for Last 24 hours Vital signs and Labs for Last 24 Hours: Temp Pulse Resp BP Pulse Ox O2 Del Method O2 Flow Rate 97.6 F 59 L 16 128/91 H 100 Room Air 4 02/15/23 04:00 02/15/23 04:00 02/15/23 04:00 02/15/23 04:00 02/15/23 04:00 02/15/23 06:51 02/15/23 01:00 Laboratory Results - last 24 hr 02/14/23 20:05: WBC 9.5, RBC 4.61, Hgb 14.2, Hct 45.6, MCV 99.0, MCH 30.7, MCHC 31.1 L, RDW 13.6, Plt Count 345, MPV 9.3, Neut % (Auto) 40.7, Lymph % (Auto) 48.6, [place] % (Auto) 6.9, Eos % (Auto) 2.8, Baso % (Auto) 1.0, Neut # (Auto) 3.9, Lymph # (Auto) 4.6 H, [place] # (Auto) 0.7, Eos # (Auto) 0.3, Baso # (Auto) 0.1, Sodium 144, Potassium 3.7, Chloride 109 H, Carbon Dioxide 9 L*, Anion Gap 29.7 H, BUN 11, Creatinine 0.90, Estimated Creat Clear 41, Estimated GFR 63, Est GFR ( Amer) 77, Glucose 169 H, Calcium 9.0, Total Bilirubin 0.2, AST 45 H, ALT 39, Alkaline Phosphatase 112, Total Protein 7.6, Albumin 4.7, Globulin 2.9, Albumin/Globulin Ratio 1.6, TSH 21.80 H, Thyroxine (T4) 7.9, Salicylates < 1.0 L, Acetaminophen < 10 L 02/14/23 20:20: POC Glucose 153 H 02/14/23 20:47: Free T4 0.91 02/14/23 21:05: Lactate 12.4 H, Urine Opiates Screen Negative,
--- NOTE | 2023-02-16 14:50 | CARE MANAGER ---
Called and spoke with patient regarding recent discharge. She stated that she is doing well, and had no complaints or concerns at time of call.
== END 2023-02-15 12:31 | disposition home or self-care (01) ==
LOC: ER 20:35 → 2ND 23:07
PROVIDERS: Nurse Practitioner Critical Care Medicine; Admitting Provider Internal Medicine Adolescent Medicine; Emergency Provider Emergency Medicine; PCP Emergency Medicine; Visit Provider Internal Medicine Adolescent Medicine
DX: G40.909 Epilepsy, unspecified, not intractable, without status epilepticus (principal); R41.82 Altered mental status, unspecified; J44.9 Chronic obstructive pulmonary disease, unspecified; E78.5 Hyperlipidemia, unspecified; I10 Essential (primary) hypertension; E03.9 Hypothyroidism, unspecified; Z72.0 Tobacco use; Z79.899 Other long term (current) drug therapy
CPT/HCPCS: G0378; 36415; 70450; 71045; 80048; 80053; 80305; 80329; 82962; 83605; 84436; 84439; 84443; 85025; 93005; 99291; J1953

== ENCOUNTER 2023-02-20 14:00 | Outpatient (RCR) | payer MEDICARE, MEDICAID, SELFPAY ==
--- NOTE | 2023-02-13 10:25 | HMH.OTOPEV ---
OT Inpatient Evaluation Rehab OT Outpatient Eval Start: 02/13/23 10:16 Freq: Status: Active Protocol: Document 02/13/23 10:16 RMARSHALL (Rec: 02/13/23 10:25 [id number] E-signed By Bandar Barahona, OT Outpatient Therapy Subjective History Subjective History Pt is a 62 year old female who reports to therapy for initial evaluation to left shoulder. Pt explains she has had limited range of motion and pain in bicep area for ~3 months now due to a lipoma. Pt is scheduled to see a general surgeon this coming for evaluation of lipoma. Pt is right hand dominant. Pt does demonstrate with a decline in AROM and strength at left shoulder. Pt 's left elbow and wrist are within normal limits. Pt's PROM at L shoulder is within functional limits, but she continues to have pain. Pt complains of pain as aching, sharp, numbnes, and stabbing. Pt will continue to be seen twice a week in order to address left shoulder deficits . Chief Complaint Pain,Stiff,Weakness Symptom Type Ache,Throb,Sharp,Dull,Stabbing ,Burning,Numbness Symptoms Relieved By Rest/Positioning Symptoms Aggravated By Physical Activity,Lifting Prior Functional Limitations None Current Functional Limitations Reaching,Lifting,Housework, Dressing,Driving,Sleeping, Recreation Activity Symptom Description Constant but Variable Level of pain today (0-10) 7 Pain scale - at its best (0-10) 5 Pain scale - at its worst (0-10) 10 Shoulder/Elbow Eval Shoulder Objective Measurements Shoulder ROM Left Shoulder Abduction Active Range of 60 degrees Motion (degrees) Shoulder Flexion Active Range of Motion 65 degrees (degrees) Query Text: Shoulder External Rotation Active Range 15 degrees of Motion (degrees) Shoulder Internal Rotation Active Range 20 degrees of Motion (degrees) Shoulder MMT Shoulder Abduction Strength Grade 3- Fair- Shoulder Flexion Strength Grade 3- Fair- Shoul
== END 2023-02-20 15:00 | disposition home or self-care (01) ==
LOC: OT 14:00
PROVIDERS: PCP Physician Assistant; Visit Provider Physician Assistant
DX: D17.21 Benign lipomatous neoplasm of skin and subcutaneous tissue of right arm (principal); D17.22 Benign lipomatous neoplasm of skin and subcutaneous tissue of left arm
CPT/HCPCS: 97166

== ENCOUNTER → 2023-02-23 13:39 | Outpatient (CLI) | payer MEDICARE, MEDICAID, SELFPAY ==
--- NOTE | 2023-02-23 13:39 | MR_ITS ---
FINAL REPORT CLINICAL HISTORY: lipoma mid shaft upper arm, tenderness marker placed on area of interest FINDINGS: Multiplanar MR imaging was obtained of the left humerus without contrast. The visualized bony structures are intact. There is no evidence of fracture or bone marrow edema. The musculature is intact. A marker was placed at the lateral aspect of the upper arm. No well-defined mass is identified. No abnormal fluid collection is seen. There is abnormal signal in the humeral head, favor multiple subchondral cysts. There is no localized inflammatory process. IMPRESSION: No well-defined mass identified at the area of interest. Reviewed, Interpreted and Dictated by Alejandro Atkins III, MD Transcribed by Emily Lynch Authenticated and [facility]
== END ==
PROVIDERS: PCP Emergency Medicine; Visit Provider Surgery
DX: D17.22 Benign lipomatous neoplasm of skin and subcutaneous tissue of left arm (principal)
CPT/HCPCS: 73218

== ENCOUNTER → 2023-03-14 09:32 | Outpatient (CLI) | payer MEDICARE, SELFPAY ==
--- NOTE | 2023-03-14 09:47 | XR_ITS ---
FINAL REPORT CLINICAL HISTORY: pain IN LEFT SHOULDER 6-8 MONTHS COMPARISON: None FINDINGS: Two views of the left humerus were obtained. There is no acute fracture or dislocation. The joint spaces are well preserved. There is no acute soft tissue abnormality. IMPRESSION: No acute abnormality identified. Reviewed, Interpreted and Dictated by Alexandr Dutta MD Transcribed by Juani Brasher Authenticated and [facility]
== END ==
LOC: RAD 09:33
PROVIDERS: PCP Physician Assistant; Visit Provider Orthopaedic Surgery
DX: M79.601 Pain in right arm (principal)
CPT/HCPCS: 73060

== ENCOUNTER → 2023-03-17 09:23 | Outpatient (CLI) | payer MEDICARE, MEDICAID, SELFPAY | PROVIDERS: PCP Physician Assistant; Visit Provider Specialist | DX: I69.398 Other sequelae of cerebral infarction (principal); G40.909 Epilepsy, unspecified, not intractable, without status epilepticus | CPT/HCPCS: 95816 ==

== ENCOUNTER → 2023-03-21 16:35 | Outpatient (CLI) | payer MEDICARE, MEDICAID, SELFPAY ==
--- NOTE | 2023-03-21 16:36 | MR_ITS ---
PROCEDURE INFORMATION: Exam: MR Left Upper Extremity Joint Without Contrast; Shoulder Exam date and time: 03/21/2023 4:47 PM Age: 62 years old Clinical indication: Pain; Shoulder; Left; Additional info: Lt shoulder pain TECHNIQUE: Imaging protocol: Magnetic resonance imaging of the left upper extremity without contrast. Exam focused on the shoulder. COMPARISON: MR HUMERUS LT WO CON 02/23/2023 1:39 PM FINDINGS: Bones/joints: Motion artifact limits this study. STIR hyperintense cystic and edematous changes are identified within the bone marrow of the humeral head anteriorly and posteriorly, which can be degenerative or due to prior trauma. This has progressed posteriorly compared to the previous MRI. Acromioclavicular arthropathy visualized, with narrowing of the underlying tissue planes. Minimal glenohumeral joint effusion. No dislocation at the glenohumeral joint. Glenoid labrum: A small linear focus of T2 hyperintensity is seen within the inferior aspect of the labrum, suggestive of labral tear. This is visualized on series 9, image 22. Mild heterogeneous signal intensity of the anterior inferior and posterior aspects of the labrum. Motion artifact limits evaluation of the labrum. Supraspinatus tendon: Partial tear of the supraspinatus tendon. Infraspinatus tendon: Minimal PD hyperintensity seen at the undersurface of the infraspinatus tendon, and partial tear cannot be excluded. Subscapularis tendon: Heterogeneous signal intensity of the subscapularis tendon, with tendinosis. Teres minor tendon: No evidence of tear. Tendon of biceps brachii: No evidence of tear. Glenohumeral ligaments: Heterogeneous signal intensity on PD of the inferior glenohumeral ligament, which is likely post-traumatic or due to adhesive capsulitis. Partial tear cannot be excluded. Soft tissues: Unremarkable. Lymph nodes: A few nonspecific axillary lymph nodes are visualized. IMPRESSION: 1. Partial tear of the supraspinatus tendon. 2. Minimal PD hyperintensity seen at the undersurface of the infraspinatus tendon, and partial tear cannot be excluded. 3. Subscapularis tendinosis. 4. Acromioclavicular arthropathy visualized, with narrowing of the underlying tissue planes. 5. Cystic and edematous changes are identified within the bone marrow of the humeral head anteriorly and posteriorly, which can be degenerative or due to prior trauma. This has progressed posteriorly compared to the previous MRI. 6. Minimal glenohumeral joint effusion. 7. Suggested labral tear. 8. Heterogeneous signal intensity of the inferior glenohumeral ligament, which is likely post-traumatic or due to adhesive capsulitis. 9. Additional findings described above.
== END ==
PROVIDERS: PCP Physician Assistant; Visit Provider Orthopaedic Surgery
DX: M25.512 Pain in left shoulder (principal)
CPT/HCPCS: 73221

== ENCOUNTER → 2023-04-03 23:19 | Outpatient (CLI) | payer MEDICARE, MEDICAID, SELFPAY ==
[2023-04-03 19:19] LABS: Adenovirus,PCR Not Detected (NotDetected); Bordetella Pertussis Not Detected (NotDetected); Chlamydophila Pneumoniae, PCR Not Detected (NotDetected); Coronavirus 19, PCR Not Detected (NotDetected); Coronavirus 229E Not Detected (NotDetected); Coronavirus NL63 Not Detected (NotDetected); Coronavirus OC43 Not Detected (NotDetected); Coronovirus HKU1,PCR Not Detected (NotDetected); Human Metapneumovirus Not Detected (NotDetected); Influenza A, PCR Not Detected (NotDetected); Influenza AH1, 2009 Not Detected (NotDetected); Influenza AH1, PCR Not Detected (NotDetected); Influenza AH3,PCR Not Detected (NotDetected); Influenza B, PCR Not Detected (NotDetected); Mycoplasma Pneumoniae, PCR Not Detected (NotDetected); Parainfluenza 1, PCR Not Detected (NotDetected); Parainfluenza 2, PCR Not Detected (NotDetected); Parainfluenza 3, PCR Not Detected (NotDetected); Parainfluenza 4, PCR Not Detected (NotDetected); Respiratory Syncytial Virus Not Detected (NotDetected)
[2023-04-03 19:25] LABS: Basophils % 0.2 % (0.1-2.0); Eosinophils % 0.3 % (0.1-12.0); Hematocrit 44.2 % (37.0-47.0); Hemoglobin 13.8 g/dL (12.2-16.2); Lymphocytes # 1.6 K/mm3 (0.7-4.5); Mean Corpuscular HGB Conc 31.1 g/dL (31.8-35.4); Mean Corpuscular Hemoglobin 30.1 pg (27.0-31.2); Mean Corpuscular Volume 96.7 fl (81-99); Mean Platelet Volume 10.3 fl (7.4-10.4); Monocytes # 0.9 K/mm3 (0.1-1.0); Monocytes % 9.1 % (1.7-9.3); Neutrophils # 7.7 K/mm3 (1.8-7.8); Neutrophils % 74.5 % (37.0-80.0); Platelet Count 300 K/mm3 (142-424); Red Blood Count 4.57 M/mm3 (4.20-5.40); Red Cell Distribution Width 14.2 % (11.5-17.5); White Blood Count 10.3 K/mm3 (4.8-10.8)
[2023-04-03 19:55] LABS: Alanine Aminotransferase 23 U/L (12-78); Albumin Level 4.1 g/dl (3.5-5.0); Albumin/Globulin Ratio 1.5 (1.1-1.8); Alkaline Phosphatase 113 U/L (38-126); Anion Gap 10.4 mEq/L (5-15); Aspartate Amino Transferase 29 U/L (14-36); Bilirubin,Total 0.3 mg/dl (0.2-1.3); Blood Urea Nitrogen 17 mg/dl (7-17); Calcium 9.3 mg/dl (8.4-10.2); Carbon Dioxide 29 mmol/L (22.0-30.0); Chloride 108 mmol/L (98-107); Estimated Glomerular Filt Rate 72 ml/min (>60); GFR (African American) 88 ML/MIN (>60); Globulin 2.7 g/dL (1.3-3.2); Glucose 94 mg/dl (74-100); Potassium 4.4 mmoL/L (3.5-5.1); Sodium 143 mmol/L (136-145); Total Protein,Serum 6.8 g/dl (6.3-8.2)
[2023-04-03 20:09] LABS: Free T4 (Free Thyroxine) 0.82 ng/dl (0.78-2.19)
[2023-04-03 20:23] LABS: Thyroid Stimulating Hormone 3.07 uIU/mL (0.465-4.68)
[2023-04-03 22:48] LABS: Rhinovirus/Enterovirus Detected (NotDetected)
== END ==
PROVIDERS: PCP Student in an Organized Health Care Education/Training Program; Visit Provider Student in an Organized Health Care Education/Training Program
DX: E78.5 Hyperlipidemia, unspecified (principal); J44.9 Chronic obstructive pulmonary disease, unspecified; R05.9 Cough, unspecified; B34.1 Enterovirus infection, unspecified; R06.02 Shortness of breath; Z79.899 Other long term (current) drug therapy
CPT/HCPCS: 80053; 84439; 84443; 85025; 87581; 87632; 87798

== ENCOUNTER → 2023-04-14 09:22 | Outpatient (CLI) | payer MEDICARE, MEDICAID, SELFPAY ==
--- NOTE | 2023-04-14 09:26 | CT_ITS ---
FINAL REPORT TECHNIQUE: Axial images were obtained through the chest without contrast. CLINICAL HISTORY: JOSAFAT nodule COMPARISON: 01/02/2023 FINDINGS: There is streak artifact from multiple mediastinal wires. There are calcified right paratracheal, right hilar, and subcarinal lymph nodes. The heart size is normal. There is no pericardial or pleural effusion. Limited images of the upper abdomen are unremarkable. There are advanced changes of centrilobular emphysema. Biapical pleural and parenchymal scarring is noted. There is redemonstration of left upper lobe mass measuring 11 x 7 mm well seen on images 92 through 96 of series 3. This mass appears entirely stable. There are calcified granulomas in the right lower lobe. IMPRESSION: Advanced changes of centrilobular emphysema. Stable masslike density left upper lobe may be postinflammatory or neoplastic. PET/CT may be of value. Reviewed, Interpreted and Dictated by Alexandr Dutta MD Transcribed by Juani Brasher Authenticated and [facility]
== END ==
PROVIDERS: PCP Student in an Organized Health Care Education/Training Program; Visit Provider Internal Medicine Pulmonary Disease
DX: R91.8 Other nonspecific abnormal finding of lung field (principal)
CPT/HCPCS: 71250

== ENCOUNTER 2023-05-15 10:00 | Outpatient (RCR) | payer MEDICARE, MEDICAID, SELFPAY ==
--- NOTE | 2023-05-09 08:49 | HMH.OTOPEV ---
OT Inpatient Evaluation Rehab OT Outpatient Eval Start: 05/09/23 08:31 Freq: Status: Active Protocol: Document 05/09/23 08:31 RMIDANIA (Rec: 05/09/23 08:48 [id number] E-signed By Bandar Barahona, OT Outpatient Therapy Subjective History Subjective History Pt is a 62 year old female who reports to therapy for initial evaluation to left shoulder. Pt reports she has been experiencing pain in left shoulder for ~8 months. She does not recall a specific injury causing pain to begin. Pt has had a MRI completed with the following findings: 1. Partial tear of the supraspinatus tendon. 2. Minimal PD hyperintensity seen at the undersurface of the infraspinatus tendon, and partial tear cannot be excluded. 3. Subscapularis tendinosis. 4. Acromioclavicular arthropathy visualized, with narrowing of the underlying tissue planes. 5. Cystic and edematous changes are identified within the bone marrow of the humeral head anteriorly and posteriorly, which can be degenerative or due to prior trauma. This has progressed posteriorly compared to the previous MRI. 6. Minimal glenohumeral joint effusion. 7. Suggested labral tear. 8. Heterogeneous signal intensity of the inferior glenohumeral ligament, which is likely post-traumatic or due to adhesive capsulitis. 9. Additional findings described above. Pt did receive a steroid injection from Dr Jimenez ~6 weeks ago. She reports improved pain initially, but her pain has now returned. Pt
== END 2023-05-15 10:05 | disposition home or self-care (01) ==
LOC: OT 10:00
PROVIDERS: PCP Student in an Organized Health Care Education/Training Program; Visit Provider Orthopaedic Surgery
DX: M25.512 Pain in left shoulder (principal); S43.402A Unspecified sprain of left shoulder joint, initial encounter
CPT/HCPCS: 97010; 97110; 97140; 97166

== ENCOUNTER → 2023-05-23 14:39 | Outpatient (CLI) | payer MEDICARE, MEDICAID, SELFPAY ==
[2023-05-23 13:31] LABS: Phencyclidine Screen,Urine Negative ng/ml (<25)
[2023-05-23 13:44] LABS: Amphetamine/Metha Screen,Urine Negative ng/ml (<1000)
[2023-05-23 13:45] LABS: Barbiturates Screen,Urine Negative ng/ml (<200)
[2023-05-23 13:46] LABS: Benzodiazepines Screen,Urine Negative ng/ml (<200); Cannabinoid Screen,Urine Negative ng/ml (<50)
[2023-05-23 13:47] LABS: Cocaine Screen,Urine Negative ng/ml (<300)
[2023-05-23 13:48] LABS: Methadone Screen,Urine Negative ng/ml (<300); Opiate Screen,Urine Negative ng/ml (<300)
== END ==
PROVIDERS: PCP Emergency Medicine; Visit Provider Emergency Medicine
DX: G40.409 Other generalized epilepsy and epileptic syndromes, not intractable, without status epilepticus (principal)
CPT/HCPCS: 80305

== ENCOUNTER → 2023-05-31 23:46 | Outpatient (CLI) | payer MEDICARE, MEDICAID, SELFPAY ==
[2023-05-31 22:52] LABS: Amphetamine/Metha Screen,Urine Negative ng/ml (<1000)
[2023-05-31 22:53] LABS: Barbiturates Screen,Urine Negative ng/ml (<200); Benzodiazepines Screen,Urine Negative ng/ml (<200)
[2023-05-31 22:55] LABS: Cannabinoid Screen,Urine Negative ng/ml (<50); Cocaine Screen,Urine Negative ng/ml (<300)
[2023-05-31 22:56] LABS: Methadone Screen,Urine Negative ng/ml (<300)
[2023-05-31 22:57] LABS: Opiate Screen,Urine Negative ng/ml (<300); Phencyclidine Screen,Urine Negative ng/ml (<25)
== END ==
PROVIDERS: PCP Emergency Medicine; Visit Provider Internal Medicine
DX: G40.409 Other generalized epilepsy and epileptic syndromes, not intractable, without status epilepticus (principal)
CPT/HCPCS: 80305

== ENCOUNTER → 2023-06-06 14:46 | Outpatient (CLI) | payer MEDICARE, MEDICAID, SELFPAY ==
[2023-06-06 13:45] LABS: Amphetamine/Metha Screen,Urine Negative ng/ml (<1000); Barbiturates Screen,Urine Negative ng/ml (<200)
[2023-06-06 13:46] LABS: Benzodiazepines Screen,Urine Positive ng/ml (<200); Cannabinoid Screen,Urine Negative ng/ml (<50)
[2023-06-06 13:47] LABS: Cocaine Screen,Urine Negative ng/ml (<300)
[2023-06-06 13:48] LABS: Methadone Screen,Urine Negative ng/ml (<300); Opiate Screen,Urine Negative ng/ml (<300)
[2023-06-06 13:49] LABS: Phencyclidine Screen,Urine Negative ng/ml (<25)
== END ==
PROVIDERS: PCP Emergency Medicine; Visit Provider Emergency Medicine
DX: Z79.899 Other long term (current) drug therapy (principal)
CPT/HCPCS: 80305

== ENCOUNTER → 2023-06-08 16:22 | Outpatient (CLI) | payer MEDICARE, MEDICAID, SELFPAY ==
[2023-06-08 16:08] LABS: Barbiturates Screen,Urine Negative ng/ml (<200)
[2023-06-08 16:09] LABS: Benzodiazepines Screen,Urine Positive ng/ml (<200)
[2023-06-08 16:10] LABS: Amphetamine/Metha Screen,Urine Negative ng/ml (<1000); Methadone Screen,Urine Negative ng/ml (<300)
[2023-06-08 16:11] LABS: Cannabinoid Screen,Urine Negative ng/ml (<50); Cocaine Screen,Urine Negative ng/ml (<300)
[2023-06-08 16:13] LABS: Opiate Screen,Urine Negative ng/ml (<300); Phencyclidine Screen,Urine Negative ng/ml (<25)
== END ==
PROVIDERS: PCP Emergency Medicine; Visit Provider Internal Medicine
DX: G89.29 Other chronic pain (principal); M25.512 Pain in left shoulder
CPT/HCPCS: 80305

== ENCOUNTER → 2023-07-03 11:49 | Outpatient (CLI) | payer MEDICARE, MEDICAID, SELFPAY ==
--- NOTE | 2023-07-03 12:04 | ECG_ITS ---
APPROVED REPORT Exam: Resting ECG HR:63 bpm ECG Measurements Heart Rate 63 AXES MI 120 P 79 QRSd 65 QRS 78 QT 383 T 79 QTc 391 Conclusion SINUS RHYTHM NORMAL ECG UNCONFIRMED REPORT Electronically signed by : Silas Baires MD 07/03/2023 19:16:34
--- NOTE | 2023-07-03 12:08 | XR_ITS ---
FINAL REPORT TECHNIQUE: Chest PA & Lateral CLINICAL HISTORY: Nonspecific cough, smoker COMPARISON: None FINDINGS: 2 views of the chest were performed. The heart size is normal. Sternotomy wires are present. The mediastinum is within normal limits. The lungs are hyperinflated. There are calcified granulomas at the right base. There is no acute cardiopulmonary process. There are no pleural effusions. There is no pneumothorax. The bony thorax appears intact. IMPRESSION: No acute cardiopulmonary process. Reviewed, Interpreted and Dictated by Alexandr Dutta MD Transcribed by Juani Brasher Authenticated and [facility]
--- NOTE | 2023-07-03 12:08 | XR_ITS ---
FINAL REPORT CLINICAL HISTORY: lt upper arm pain COMPARISON: None FINDINGS: Two views of the left humerus were obtained. There is no acute fracture or dislocation. The joint spaces are well preserved. There is no acute soft tissue abnormality. IMPRESSION: No acute abnormality identified. Reviewed, Interpreted and Dictated by Alexandr Dutta MD Transcribed by Juani Brasher Authenticated and [facility]
[2023-07-03 12:27] LABS: Basophils % 0.9 % (0.1-2.0); Eosinophils # 0.1 K/mm3 (0.0-0.4); Hematocrit 45.1 % (37.0-47.0); Hemoglobin 15.1 g/dL (12.2-16.2); Lymphocytes # 1.6 K/mm3 (0.7-4.5); Lymphocytes % 35.1 % (10-50); Mean Corpuscular HGB Conc 33.4 g/dL (31.8-35.4); Mean Corpuscular Hemoglobin 32.4 pg (27.0-31.2); Mean Platelet Volume 8.6 fl (7.4-10.4); Monocytes # 0.5 K/mm3 (0.1-1.0); Monocytes % 9.8 % (1.7-9.3); Neutrophils # 2.4 K/mm3 (1.8-7.8); Neutrophils % 51.2 % (37.0-80.0); Platelet Count 366 K/mm3 (142-424); Red Blood Count 4.65 M/mm3 (4.20-5.40); Red Cell Distribution Width 13.5 % (11.5-17.5); White Blood Count 4.7 K/mm3 (4.8-10.8)
[2023-07-03 14:04] LABS: Chloride 106 mmol/L (98-107); Potassium 4.1 mmoL/L (3.5-5.1); Sodium 138 mmol/L (136-145)
[2023-07-03 14:06] LABS: Blood Urea Nitrogen 14 mg/dl (7-17); Estimated Glomerular Filt Rate 101 ml/min (>60); GFR (African American) 122 ML/MIN (>60)
[2023-07-03 14:07] LABS: Alanine Aminotransferase 15 U/L (12-78); Albumin/Globulin Ratio 1.6 (1.1-1.8); Alkaline Phosphatase 97 U/L (38-126); Anion Gap 6.1 mEq/L (5-15); Aspartate Amino Transferase 27 U/L (14-36); Bilirubin,Total 0.4 mg/dl (0.2-1.3); Calcium 8.9 mg/dl (8.4-10.2); Carbon Dioxide 30 mmol/L (22.0-30.0); Globulin 2.5 g/dL (1.3-3.2); Glucose 78 mg/dl (74-100); Total Protein,Serum 6.5 g/dl (6.3-8.2)
== END ==
PROVIDERS: PCP Physician Assistant; Visit Provider Orthopaedic Surgery
DX: Z01.818 Encounter for other preprocedural examination (principal); T81.32XA Disruption of internal operation (surgical) wound, not elsewhere classified, initial encounter; M75.112 Incomplete rotator cuff tear or rupture of left shoulder, not specified as traumatic; M79.602 Pain in left arm
CPT/HCPCS: 36415; 71046; 73060; 80053; 85025; 93005

== ENCOUNTER 2023-07-05 10:18 | Day surgery (SDC) | payer MEDICARE, MEDICAID, SELFPAY ==
[2023-07-04 11:20] VITALS: BMI 20.2
[2023-07-05] VITALS (9 sets, daily range): BP systolic 132–179; BP diastolic 80–100; PULSE 65–78; RESP 12–18; TEMP 36.2–36.6; O2SAT 9–96
[2023-07-05] MEDS: LACTATED RINGERS 1000ML 1,000 ML 25 ML IV (10:37)
[2023-07-05] MEDS: CEFAZOLIN SODIUM 1 GM in 0.9 % SODIUM CHLORIDE 50 ML IV (13:30)
[2023-07-05] MEDS: EPINEPHrine 1 MG/ML AMPUL 2 MG (13:43)
[2023-07-05] MEDS: SODIUM CHLORIDE IRRIG SOLUTION 3,000 ML 100 ML IR (13:44)
--- NOTE | 2023-07-05 14:04 | P.PNANES_ITS ---
[facility] Disclaimer: The information contained in this section may have been updated after the patient was seen, as this information can be updated by other users. Medical History Back injury Bacterial vaginosis Benign neoplasm eyebrow skin ENT referral for removal Brain aneurysm History of brain aneurysm clipping Chronic cough COPD exacerbation Dyspnea on exertion Encounter for removal of skin lesion Hip pain Lesion of right shoulder Lumbar canal stenosis CT lumbar spine: diffuse disc bulge L4/L5 with facet and ligament flavum hypertrophy with borderline canal stenosis Neck pain Cervical spine Xray Nodule of left lung Smoking greater than 30 pack years Strain of thoracic spine Surgical History History of appendectomy History of hysterectomy Family History Other Esophageal cancer Lung cancer Social History Smoking Status: Former smoker tobacco type: cigarettes packs per day: 1 smoking status stop date: 03/24/2023 second hand exposure: No alcohol intake: never substance use type: former substance user and marijuana current occupational status: employed Travel in the last 8 weeks: None household members: children housing: house marital status: current occupational exposures/hazards: No caffeine: Yes [facility] Anesthesia Checklist Patient Identification Patient Identification: Verbal (Name & ) Structural Data Admitted From: Home Planned Operative Procedure/s: l shoulder arthroscopy Consent for Planned Operative Procedure(s) Verified: Yes NPO Status Verified Time NPO: 00:00 Additional verifications Anesthesia Reactions: No Hx Blood Transfusions: No Blood Transfusion Reaction: No Airway Assessment Mallampati Score:: Class II C-Spine Mobility Assessed: Yes TMJ Mobility Assessed: Yes Dentition: Edentulous Neurological Assessment Level of Consciousness: Awake, Alert and Appropriate Anesthesia Plan Anesthesia Risk discussed: Yes Anesthesia Plan: Verified ASA Class: III Anesthesia Type: General w/block Preoperative Comments Pre-Operative Comments: unable to do BP block due to pts inability to stay stil l, even after sedation
--- NOTE | 2023-07-05 14:41 | P.OP_ITS ---
Date of procedure: 07/05/23 Pre-op Diagnosis:: Left shoulder partial-thickness rotator cuff tear and impingement AC arthritis labral tear Post-op Diagnosis:: Left shoulder partial-thickness rotator cuff tear supraspinatus Left shoulder impingement syndrome Left shoulder AC arthritis Left shoulder degenerative fraying labrum Left shoulder intact biceps tendon intact biceps anchor Procedure performed:: Left shoulder arthroscopy with extensive debridement labrum partial-thickness rotator cuff tear Left shoulder arthroscopy with subacromial decompression Left shoulder arthroscopy with arthroscopic distal clavicle excision Surgeon:: Dax Jimenez DO DESKTOP SUPPORT TECHNICIAN:: Stanislaw Nobles Anesthesia: GETA and regional Estimated blood loss (mL): 0 Operative findings:: See dictation as above Operative note:: Patient is identified preoperatively. Left shoulder marked with yes and my initials. Transferred operative suite after undergoing a block with anesthesia. Placed upon upon the operating bed. General anesthesia was administered airway secured. Then placed in a lateral position with a beanbag and all bony prominences well-padded and axillary roll placed. Left arm was then placed inside the arm traction with 10 pounds of traction in line on the fishing pole matamoros. Left shoulder was then prepped and draped normal sterile fashion. Once prepped and draped final operative timeout performed to identify proper patient procedure and extremity. Everyone involved the case agreed. Patient did receive preoperative antibiotics. Marking pen was used to bisi bony landmarks of the shoulder and standard portal sites. Skin knife was used incise posterior portal and blunt with trocar was placed in the glenohumeral joint. Within the glenohumeral joint and moved directly anteriorly above the subscapularis tendon where the anterior working portal was made this was exchanged with a switching stick and a purple cannula. Probe was placed in the glenohumeral joint within the glenohumeral joint the glenoid cartilage was intact the humeral cartilage is intact. The biceps anchor was intact. There was some fraying of the anterior labrum and the superior labrum with small degenerative tear. The labrum was not detached from the glenoid. The biceps anchor was not detached from the glenoid. Using the sucker shaver and electrocautery debridement of the labral tear was performed the biceps was then viewed with a probe I remove the biceps out into the view of the camera there is no tearing of the biceps tendon. There is evidence of mild fraying of the undersurface of the rotator cuff which was debrided Attention was then brought the subacromial space. Within the subacromial space there was significant amount of bursitis present. Bursectomy was performed with the sucker shaver and electrocautery. Undersurface of the acromion was evaluated and there is downsloping acromion as well. Lateral portal was established and subacromial decompression with a 5.5 mm barrel bur. Clean the AC joint there was also downsloping of the clavicle. Arthroscopic distal clavicle excision was performed with a 5.5 mm barrel bur with 1 cm resection. The rotator cuff was evaluated there is no full-thickness component of the rotator cuff bursectomy was completed. Camera was removed the joint was drained. Skin was closed with nylon stitch sterile dressing placed patient placed in a sling. Condition: stable Disposition: PACU Complications:: None apparent
--- NOTE | 2023-07-05 14:44 | EXP.ANES.I ---
[facility] Anesthesia Record Part I Anesthesia Record I Intake, IV Amount: 1,700 Hydration: Adequate Estimated blood loss (mL): 0 Urine output (mL): 0 Blood Pressure: 170/100 SaO2: 94 Pulse Rate: 78 Airway Patency: Patent Respiratory Rate: 12 Temperature: 97.2 F Patient is:: Awake and Stable Stable to PACU at:: 14:40
--- NOTE | 2023-07-06 07:14 | P.PNANES_ITS ---
[facility] Anesthesia Record Part II Anesthesia Record Part II Discharge Time: 15:11 Destination: Surgical Day Care (OP Surgery) PACU nurse assessment reviewed?: Yes Patient Condition:: Good Anesthesia Complications:: None Swallowing reflex intact?: Yes Airway Patency: Patent Cyanosis?: No Blood Pressure: 160/97 SaO2: 94 Respiratory Rate: 12 Pulse Rate: 74 Temperature: 97.1 F Mental Status: Alert & Oriented Pain level:: 0 Nausea and/or vomitting:: None Intake, IV Amount: 0 Hydration: Adequate
[2023-07-06 07:16] VITALS: BP 160/97; PULSE 74; RESP 12; TEMP 36.2; O2SAT 94
== END 2023-07-05 15:45 | disposition home or self-care (01) ==
PROVIDERS: PCP Emergency Medicine; Visit Provider Orthopaedic Surgery
PROC: (CPT 29805; principal; 2023-07-05 12:00)
DX: M75.112 Incomplete rotator cuff tear or rupture of left shoulder, not specified as traumatic (principal); M75.42 Impingement syndrome of left shoulder; X50.3XXA Overexertion from repetitive movements, initial encounter
CPT/HCPCS: 29826; 29827; 96374; J2405; J2710

== ENCOUNTER → 2023-07-06 23:00 | Outpatient (CLI) | payer MEDICARE, MEDICAID, SELFPAY ==
[2023-07-06 20:22] LABS: Barbiturates Screen,Urine Negative ng/ml (<200)
[2023-07-06 20:24] LABS: Amphetamine/Metha Screen,Urine Negative ng/ml (<1000)
[2023-07-06 20:25] LABS: Cocaine Screen,Urine Positive ng/ml (<300)
[2023-07-06 20:26] LABS: Benzodiazepines Screen,Urine Positive ng/ml (<200); Cannabinoid Screen,Urine Positive ng/ml (<50)
[2023-07-06 20:27] LABS: Phencyclidine Screen,Urine Negative ng/ml (<25)
[2023-07-06 20:28] LABS: Methadone Screen,Urine Negative ng/ml (<300); Opiate Screen,Urine Negative ng/ml (<300)
== END ==
PROVIDERS: PCP Internal Medicine; Visit Provider Internal Medicine
DX: Z79.899 Other long term (current) drug therapy (principal)
CPT/HCPCS: 80305

== ENCOUNTER 2023-08-16 15:22 | Outpatient (CLI) | payer MEDICARE, MEDICAID, SELFPAY ==
--- NOTE | 2023-08-16 15:27 | XR_ITS ---
FINAL REPORT CLINICAL HISTORY: injury from fall COMPARISON: None FINDINGS: SINGLE VIEW PELVIS: A single view of the pelvis was obtained. There is no acute fracture or dislocation. Vizualized joint spaces are normally aligned. Soft tissues are unremarkable. IMPRESSION: No acute bony abnormality. Reviewed, Interpreted and Dictated by Alexandr Dutta MD Transcribed by Juani Brasher Authenticated and [facility]
== END 2023-08-16 23:59 ==
PROVIDERS: PCP Physician Assistant; Visit Provider Nurse Practitioner Family
DX: R10.2 Pelvic and perineal pain (principal); T14.8XXA Other injury of unspecified body region, initial encounter; W07.XXXA Fall from chair, initial encounter
CPT/HCPCS: 72170

== ENCOUNTER 2023-09-05 09:07 | Outpatient (CLI) | payer MEDICARE, MEDICAID, SELFPAY ==
--- NOTE | 2023-09-05 09:08 | XR_ITS ---
FINAL REPORT TECHNIQUE: Bone mineral density was calculated of the lumbar spine and hip. CLINICAL HISTORY: osteopenia, postmenopausal COMPARISON: None FINDINGS: Using L1-4, the bone mineral density of the spine is 0.593 g/cm2, corresponding to T-score of -0.9. Using the left hip, the bone mineral density of the femoral neck is 0.7 g/cm2, corresponding to a T-score of -1.5. NOTE: T-score: Standard deviation compared with peak bone mass of young adult mean. *Following the recommendations of the International Society of Bone densitometry, classification of hip BMD is based on the lower of two T-scores; total hip or femoral neck. IMPRESSION: Diminished bone mineral density of the left hip consistent with osteopenia, and normal bone density of the lumbar spine.. Reviewed, Interpreted and Dictated by Alejandro Atkins III, MD Transcribed by Suha Francis Authenticated and [facility]
== END 2023-09-05 23:59 ==
LOC: RAD 09:08
PROVIDERS: PCP Physician Assistant; Visit Provider Student in an Organized Health Care Education/Training Program
DX: Z78.0 Asymptomatic menopausal state; M85.89 Other specified disorders of bone density and structure, multiple sites
CPT/HCPCS: 77080

== ENCOUNTER 2023-09-07 12:35 | Outpatient (CLI) | payer MEDICARE, MEDICAID, SELFPAY ==
--- NOTE | 2023-09-07 12:35 | CT_ITS ---
FINAL REPORT CLINICAL HISTORY: hematoma, pelvis injury COMPARISON: 02/20/2021 FINDINGS: CTA ABDOMEN AND PELVIS: CTA of the abdomen and pelvis reveal moderate vascular calcifications. There are normal origins of the celiac axis, superior mesenteric artery, and the renal arteries bilaterally. The inferior mesenteric artery is patent. The common iliac, external and internal iliac arteries are unremarkable in appearance. There are right chronic posterior rib fractures involving ribs 10, 11, and 12. These were seen on the prior CT of 2020. There is a 14 mm cyst in the anterior segment of the right hepatic lobe. The liver is otherwise unremarkable in appearance. The spleen and adrenal glands are unremarkable. The kidneys are unremarkable in appearance. There is mild pancreatic ductal dilatation, which is stable and of uncertain etiology. There is wall thickening of the ascending and transverse colon, nonspecific, but may represent colitis. The uterus has been surgically resected. There is a 23 mm low-attenuation mass in the left mons pubis, that may represent a sebaceous cyst or chronic hematoma. IMPRESSION: Unremarkable CTA of the abdomen and pelvis. 14 mm cyst anterior segment right hepatic lobe. Wall thickening of the ascending and transverse colon, nonspecific but may represent colitis. Mild pancreatic ductal dilatation, stable. 23 mm low-attenuation mass in the left side of the mons pubis, that may represent a cyst or chronic hematoma. Reviewed, Interpreted and Dictated by Alejandro Atkins III, MD Transcribed by Suha Francis Authenticated and [facility]
--- NOTE | 2023-09-07 12:35 | CT_ITS ---
FINAL REPORT CLINICAL HISTORY: injury to pelvis, fall COMPARISON: None FINDINGS: CT BONY PELVIS: CT examination of the bony pelvis reveals mild degenerative change of the hips. No evidence of fracture or dislocation is identified. No definite focal mass in the pelvis is identified. IMPRESSION: Mild degenerative change of the hips. No acute bony abnormality identified. Reviewed, Interpreted and Dictated by Alejandro Atkins III, MD Transcribed by Suha Francis Authenticated and [facility]
[2023-09-07 13:32] LABS: Blood Urea Nitrogen 11 mg/dl (7-17); Estimated Glomerular Filt Rate 101 ml/min (>60); GFR (African American) 122 ML/MIN (>60)
[2023-09-07] MEDS: IOPAMIDOL-370 (76%);100ML BOTTLE 100 ML IV (14:34)
[2023-09-07] MEDS: 0.9 % SODIUM CHLORIDE 50 ML VIAL IV (14:34)
[2023-09-07] MEDS: SODIUM CHLORIDE 0.9% 10ML SYR (RAD ONLY) 10 ML IV (14:34)
== END 2023-09-07 23:59 ==
LOC: RAD 12:35
PROVIDERS: PCP Physician Assistant; Visit Provider Student in an Organized Health Care Education/Training Program
DX: S39.93XA Unspecified injury of pelvis, initial encounter (principal); R10.2 Pelvic and perineal pain; W07.XXXA Fall from chair, initial encounter
CPT/HCPCS: 36415; 72192; 74174; 82565; 84520; Q9967

== ENCOUNTER 2023-10-20 14:01 | Outpatient (CLI) | payer MEDICARE, MEDICAID, SELFPAY ==
--- NOTE | 2023-10-20 14:02 | CT_ITS ---
FINAL REPORT TECHNIQUE: Axial images were obtained from the lung apex to the mid abdomen by computed tomography. This study was performed with techniques to keep radiation doses as low as reasonably achievable, (ALARA). Individualized dose reduction techniques using automated exposure control or adjustment of mA and/or kV according to the patient's size were employed. CLINICAL HISTORY: Lung nodule follow-up 6-month f/u left lung nodule COMPARISON: 04/14/2023 and 01/02/2023 FINDINGS: There is no axillary adenopathy. There is no hilar or mediastinal adenopathy. The heart is proper size. There is no pericardial or pleural effusion. Limited images of the upper abdomen are unremarkable. There is a spiculated nodule in the left upper lobe again noted measuring 10 mm on image 33, unchanged. This remains indeterminate for neoplasm or postinflammatory. There is evidence of old calcified granulomatous disease. There are emphysematous changes. IMPRESSION: Stable spiculated nodule left upper lobe may be inflammatory or slow-growing neoplasm. Recommend continued follow-up in 6 months. Reviewed, Interpreted and Dictated by Teresa Armenta MD Transcribed by DIANELYS Marley Authenticated and [facility]
== END 2023-10-20 23:59 ==
LOC: RAD 14:02
PROVIDERS: PCP Physician Assistant; Visit Provider Internal Medicine Pulmonary Disease
DX: R91.8 Other nonspecific abnormal finding of lung field (principal)
CPT/HCPCS: 71250

== ENCOUNTER 2023-11-23 18:00 | Outpatient (CLI) | payer MEDICARE, MEDICAID, SELFPAY ==
[2023-11-23 17:59] LABS: Hemoglobin A1C 5.4 % (4.0-6.0)
== END 2023-11-23 23:59 | disposition home or self-care (01) ==
LOC: LAB.DROPOF 11-24 14:13
PROVIDERS: PCP Student in an Organized Health Care Education/Training Program; Visit Provider Student in an Organized Health Care Education/Training Program
DX: R73.9 Hyperglycemia, unspecified (principal)
CPT/HCPCS: 83036

== ENCOUNTER 2023-12-04 09:45 | Outpatient (CLI) | payer MEDICARE, MEDICAID, SELFPAY ==
--- NOTE | 2023-12-04 09:50 | XR_ITS ---
FINAL REPORT CLINICAL HISTORY: Foot Pain COMPARISON: None FINDINGS: LEFT FOOT: Three views of the left foot were obtained. There is no acute fracture or dislocation. Mild degenerative changes present. There is a tiny plantar calcaneal spur. There is no soft tissue abnormality. IMPRESSION: No acute bony abnormality. Mild degenerative change as described. Reviewed, Interpreted and Dictated by Alejandro Atkins III, MD Transcribed by Suha Francis Authenticated and [facility]
--- NOTE | 2023-12-04 09:50 | XR_ITS ---
FINAL REPORT CLINICAL HISTORY: injury, fifth toe COMPARISON: None FINDINGS: RIGHT FOOT: Three views of the right foot were obtained. There is no acute fracture or dislocation. Mild degenerative changes present. There is no soft tissue abnormality. There is a tiny plantar spur present. IMPRESSION: No acute bony abnormality. Mild degenerative change as described. Reviewed, Interpreted and Dictated by Alejandro Atkins III, MD Transcribed by Suha Francis Authenticated and [facility]
== END 2023-12-04 23:59 | disposition home or self-care (01) ==
PROVIDERS: PCP Student in an Organized Health Care Education/Training Program; Visit Provider Student in an Organized Health Care Education/Training Program
DX: M79.676 Pain in unspecified toe(s); M79.671 Pain in right foot; M79.672 Pain in left foot
CPT/HCPCS: 73630

== ENCOUNTER 2023-12-14 11:32 | Outpatient (CLI) | payer MEDICARE, MEDICAID, SELFPAY ==
--- NOTE | 2023-12-14 11:37 | XR_ITS ---
FINAL REPORT CLINICAL HISTORY: bilateral hand pain without injury FINDINGS: RIGHT HAND Three views demonstrate no acute fracture or dislocation. There is mild DIP joint space narrowing consistent with osteoarthritis. The visualized joint spaces are normally aligned. The soft tissues are unremarkable. IMPRESSION: No acute bony abnormality. Reviewed, Interpreted and Dictated by Alexandr Dutta MD Transcribed by Adriana Hernandez Authenticated and . [facility]
--- NOTE | 2023-12-14 11:37 | XR_ITS ---
FINAL REPORT CLINICAL HISTORY: bilateral hand pain without injury FINDINGS: LEFT HAND Three views demonstrate no acute fracture or dislocation. Mild DIP and basilar joint hypertrophic changes are seen. The visualized joint spaces are normally aligned. The soft tissues are unremarkable. IMPRESSION: No acute process. Reviewed, Interpreted and Dictated by Alexandr Dutta MD Transcribed by Adriana Hernandez Authenticated and [facility]
[2023-12-14 17:59] LABS: Uric Acid 3.7 mg/dl (2.5-6.2)
[2023-12-14 18:05] LABS: C-Reactive Protein 2.1 mg/L (0-4)
[2023-12-14 18:15] LABS: Erythrocyte Sedimentation Rate 16 mm/hr (0-30)
[2023-12-19 15:17] LABS: Anti-Centromere B Antibodies <0.2 AI (0.0-0.9); Anti-DNA (DS) Ab Qn <1 IU/mL (0-9); Anti-Jo-1 <0.2 AI (0.0-0.9); Anti-Smith Antibody <0.2 AI (0.0-0.9); Antichromatin Antibodies <0.2 AI (0.0-0.9); Antiscleroderma-70 Antibodies <0.2 AI (0.0-0.9); RNP Antibodies <0.2 AI (0.0-0.9); Sjogren's Anti-SS-A 1.4 AI (0.0-0.9); Sjogren's Anti-SS-B <0.2 AI (0.0-0.9)
== END 2023-12-14 23:59 | disposition home or self-care (01) ==
LOC: LAB.DROPOF 11:33
PROVIDERS: PCP Student in an Organized Health Care Education/Training Program; Visit Provider Student in an Organized Health Care Education/Training Program
DX: M79.641 Pain in right hand (principal); M79.642 Pain in left hand
CPT/HCPCS: 73130; 84550; 85651; 86140; 86225; 86235

== ENCOUNTER 2023-12-26 13:37 | Outpatient (POV) | payer MEDICARE, MEDICAID, SELFPAY | END 2023-12-26 23:59 | disposition home or self-care (01) | LOC: SC 13:37 | PROVIDERS: PCP Student in an Organized Health Care Education/Training Program; Visit Provider Specialist/Technologist | DX: Z00.00 Encounter for general adult medical examination without abnormal findings (principal) ==

== ENCOUNTER 2023-12-27 12:51 | Outpatient (CLI) | payer MEDICARE, MEDICAID, SELFPAY ==
[2023-12-28 10:24] LABS: HIV Screen 4th Generation wRfx Non Reactive (Non Reactive)
[2023-12-28 11:15] LABS: HCV Ab Non Reactive (Non Reactive); Hepatitis B Surface Antigen Negative (Negative)
[2023-12-28 13:47] LABS: Rapid Plasma Reagin Ab Titer Non Reactive titer (NonRea<1:1)
== END 2023-12-27 23:59 | disposition home or self-care (01) ==
LOC: LAB 12:52
PROVIDERS: PCP Student in an Organized Health Care Education/Training Program; Visit Provider Obstetrics & Gynecology
DX: N89.8 Other specified noninflammatory disorders of vagina (principal); L29.8 Other pruritus; R20.8 Other disturbances of skin sensation; Z71.1 Person with feared health complaint in whom no diagnosis is made; Z04.41 Encounter for examination and observation following alleged adult rape
CPT/HCPCS: 36415; 86593; 86703; 86762; 87340; G0432

== ENCOUNTER 2024-02-23 11:28 | Outpatient (CLI) | payer MEDICARE, MEDICAID, SELFPAY ==
[2024-02-23 11:34] LABS: Adenovirus F 40/41, stool Not Detected (NotDetected); Astrovirus Not Detected (NotDetected); Campylobacter Not Detected (NotDetected); Clostridium Difficile A/B, PCR Not Detected (NotDetected); Cryptosporidium Not Detected (NotDetected); Cyclospora Cayetanesis Not Detected (NotDetected); Entamoeba histolytica Not Detected (NotDetected); Enteroaggregative E coli Not Detected (NotDetected); Enteropathogenic E coli Not Detected (NotDetected); Enterotoxigenic E coli Not Detected (NotDetected); Giardia lamblia Not Detected (NotDetected); Norovirus Not Detected (NotDetected); Plesimonas Shigalloides, PCR Not Detected (NotDetected); Rotavirus A Not Detected (NotDetected); Salmonella, PCR Not Detected (NotDetected); Sapovirus Not Detected (NotDetected); Shiga-like toxin E coli Not Detected (NotDetected); Shigella Enterovasive E coli Not Detected (NotDetected); Vibrio Cholerae Not Detected (NotDetected); Vibrio, PCR Not Detected (NotDetected); Yersinia Entercolitica, PCR Not Detected (NotDetected)
[2024-02-27 21:39] LABS: Calprotectin, Fecal 12 ug/g (0-120)
[2024-03-01 11:28] LABS: Pancreatic Elastase, Fecal 356 (>200)
== END 2024-02-23 23:59 | disposition home or self-care (01) ==
LOC: LAB 11:29
PROVIDERS: PCP Student in an Organized Health Care Education/Training Program; Visit Provider Student in an Organized Health Care Education/Training Program
DX: R19.7 Diarrhea, unspecified (principal); R19.4 Change in bowel habit
CPT/HCPCS: 82656; 83993; 87506

== ENCOUNTER 2024-03-20 12:53 | Outpatient (CLI) | payer MEDICARE, MEDICAID, SELFPAY ==
--- NOTE | 2024-03-20 12:56 | XR_ITS ---
FINAL REPORT CLINICAL HISTORY: low back pain..no trauma COMPARISON: None FINDINGS: LUMBAR SPINE: AP and lateral views of the lumbar spine were obtained. There is no prior exam for comparison. There is no acute fracture or malalignment. Vertebral body height is preserved. Disc space height is preserved. No acute paraspinal abnormality. There is facet sclerosis present in the lower lumbar spine. IMPRESSION: No acute bony abnormality identified. Facet sclerosis is present in the lower lumbar spine. Reviewed, Interpreted and Dictated by Alexandr Dutta MD Transcribed by Suha Francis Authenticated and [facility]
== END 2024-03-20 23:59 | disposition home or self-care (01) ==
LOC: RAD 12:55
PROVIDERS: PCP Student in an Organized Health Care Education/Training Program; Visit Provider Student in an Organized Health Care Education/Training Program
DX: G89.29 Other chronic pain (principal); M54.50 Low back pain, unspecified
CPT/HCPCS: 72100

== ENCOUNTER 2024-04-16 13:34 | Outpatient (CLI) | payer MEDICARE, MEDICAID, SELFPAY ==
[2024-04-16 18:15] LABS: Free T4 (Free Thyroxine) 1.07 ng/dl (0.78-2.19)
[2024-04-16 18:29] LABS: Thyroid Stimulating Hormone 1.77 uIU/mL (0.465-4.68)
== END 2024-04-16 23:59 | disposition home or self-care (01) ==
LOC: LAB.DROPOF 04-17 13:48
PROVIDERS: PCP Student in an Organized Health Care Education/Training Program; Visit Provider Student in an Organized Health Care Education/Training Program
DX: E03.9 Hypothyroidism, unspecified (principal)
CPT/HCPCS: 84439; 84443

== ENCOUNTER 2024-05-07 08:59 | Outpatient (CLI) | payer MEDICARE, MEDICAID, SELFPAY ==
[2024-05-07 18:54] LABS: Amphetamine/Metha Screen,Urine Negative ng/ml (<1000); Benzodiazepines Screen,Urine Positive ng/ml (<200)
[2024-05-07 18:55] LABS: Barbiturates Screen,Urine Negative ng/ml (<200)
[2024-05-07 18:56] LABS: Cannabinoid Screen,Urine Negative ng/ml (<50); Cocaine Screen,Urine Positive ng/ml (<300)
[2024-05-07 18:57] LABS: Methadone Screen,Urine Negative ng/ml (<300)
[2024-05-07 18:58] LABS: Opiate Screen,Urine Negative ng/ml (<300); Phencyclidine Screen,Urine Negative ng/ml (<25)
== END 2024-05-07 23:59 | disposition home or self-care (01) ==
LOC: LAB.DROPOF 05-09 11:00
PROVIDERS: PCP Student in an Organized Health Care Education/Training Program; Visit Provider Student in an Organized Health Care Education/Training Program
DX: Z79.899 Other long term (current) drug therapy (principal); Z02.83 Encounter for blood-alcohol and blood-drug test
CPT/HCPCS: 80307

== ENCOUNTER 2024-05-08 13:12 | Outpatient (CLI) | payer MEDICARE, MEDICAID, SELFPAY ==
[2024-05-08 13:25] VITALS: PULSE 78; PULSE 83
[2024-05-08] MEDS: ALBUTEROL 0.083% 2.5 MG/3 ML NEB IH (13:25)
== END 2024-05-08 23:59 | disposition home or self-care (01) ==
LOC: RT 13:13
PROVIDERS: PCP Student in an Organized Health Care Education/Training Program; Visit Provider Internal Medicine Pulmonary Disease
DX: J44.9 Chronic obstructive pulmonary disease, unspecified (principal)
CPT/HCPCS: 94060; 94640; J7613

== ENCOUNTER 2024-05-13 06:23 | Day surgery (SDC) | payer MEDICARE, MEDICAID, SELFPAY ==
[2024-05-07 10:23] VITALS: BMI 23.0
[2024-05-13] MEDS: LACTATED RINGERS 1000ML 1,000 ML 25 ML IV (07:01)
[2024-05-13 07:05] VITALS: BP 127/70; PULSE 74; RESP 18; TEMP 36.4; O2SAT 94
--- NOTE | 2024-05-13 07:25 | P.PNANES_ITS ---
[facility] Disclaimer: The information contained in this section may have been updated after the patient was seen, as this information can be updated by other users. Medical History Unspecified hearing loss COPD mixed type COPD exacerbation Chronic cough Dyspnea on exertion Smoking greater than 30 pack years Nodule of left lung Brain aneurysm Hip pain Encounter for removal of skin lesion Bacterial vaginosis Lesion of right shoulder Lumbar canal stenosis Strain of thoracic spine Back injury Benign neoplasm eyebrow skin Neck pain Surgical History S/P shoulder surgery History of hysterectomy History of appendectomy Family History Other Esophageal cancer Lung cancer Social History Smoking Status: Former smoker tobacco type: cigarettes packs per day: 1 smoking status stop date: 03/24/2023 second hand exposure: No alcohol intake: never substance use type: former substance user and marijuana current occupational status: employed Travel in the last 8 weeks: None household members: children housing: house marital status: current occupational exposures/hazards: No caffeine: Yes [facility] Anesthesia Checklist Patient Identification Patient Identification: Arm Band and Verbal (Name & ) Structural Data Admitted From: Home Planned Operative Procedure/s: EGD/Colonoscopy Consent for Planned Operative Procedure(s) Verified: Yes Verified Documents: Surgical Consent and History and Physical NPO Status Verified Time NPO: 00:00 Additional verifications Anesthesia Reactions: No Hx Blood Transfusions: No Blood Transfusion Reaction: No Airway Assessment Mallampati Score:: Class II C-Spine Mobility Assessed: Yes TMJ Mobility Assessed: Yes Dentition: Edentulous Neurological Assessment Level of Consciousness: Awake Hx Seizures: No Numbness or tingling in extremities: No Anesthesia Plan Anesthesia Risk discussed: Yes Anesthesia Plan: Verified ASA Class: III Anesthesia Type: MAC
[2024-05-13 07:49] VITALS: O2SAT 100
--- NOTE | 2024-05-13 07:53 | P.HP_ITS ---
History of Present Illness *Admission Date: 05/13/24 *Reason for visit:: Dysphagia/screening *History of present illness: Mrs. Helton is a 63-year-old female who is here for dysphagia/family history of esophageal cancer and initial screening colonoscopy. The examination is deemed medically necessary for EGD and colonoscopy. The patient has been seen, interviewed and examined prior to the procedure by both myself and the anesthesia provider. [facility] Disclaimer: The information contained in this section may have been updated after the patient was seen, as this information can be updated by other users. Medical History Unspecified hearing loss COPD mixed type COPD exacerbation Chronic cough Dyspnea on exertion Smoking greater than 30 pack years Nodule of left lung Brain aneurysm Hip pain Encounter for removal of skin lesion Bacterial vaginosis Lesion of right shoulder Lumbar canal stenosis Strain of thoracic spine Back injury Benign neoplasm eyebrow skin Neck pain Surgical History S/P shoulder surgery History of hysterectomy History of appendectomy Family History Other Esophageal cancer Lung cancer Social History Smoking Status: Former smoker tobacco type: cigarettes packs per day: 1 smoking status stop date: 03/24/2023 second hand exposure: No alcohol intake: never substance use type: former substance user and marijuana current occupational status: employed Travel in the last 8 weeks: None household members: children housing: house marital status: current occupational exposures/hazards: No caffeine: Yes Other Medical History Have you received the Flu Vaccine for this season: No Have you received the Pneumonia Vaccine: No Review of Systems Review of Systems Review of systems (narrative): Negative *Cardiovascular Comments: Negative *Gastrointestinal Comments: Negative *Genitourinary Comments: Negative *Musculoskeletal Comments: Negative *Neurologic Comments: Negative Meds Home Medications and Allergies Home Medications ?Medication ?Instructions ?Recorded ?Confirmed ?Type levetiracetam 500 mg tablet 500 mg PO BID Seizures #60 tabs 05/23/23 05/13/24 Rx (Keppra) ipratropium 0.5 mg-albuterol 3 mg 3 ml inhalation QID PRN shortness 06/05/23 05/13/24 Rx (2.5 mg base)/3 mL nebulization of breath #90 mL soln calcium 600 mg (as 1 tab PO DAILY #30 tabs 09/05/23 05/13/24 Rx carbonate)-vitamin D3 20 mcg (800 unit) tablet tiotropium 2.5 mcg-olodaterol 2.5 2 puff inhalation DAILY 90 days #4 10/06/23 05/13/24 Rx mcg/actuation mist for inhalation grams (Stiolto Respimat) diclofenac sodium 1 % topical gel 4 g topical QID PRN pain 30 days 12/19/23 05/13/24 Rx #100 grams meloxicam 7.5 mg tablet 7.5 mg PO DAILY #30 tabs 12/21/23 05/13/24 Rx loperamide 2 mg capsule 2 mg PO QID PRN loose stool #20 02/22/24 05/13/24 Rx caps quetiapine 50 mg tablet 50 mg PO HS #30 tabs 02/22/24 05/13/24 Rx triamcinolone acetonide 0.1 % 1 applic topical BID #30 grams 02/22/24 05/13/24 Rx topical ointment albuterol sulfate 90 mcg/actuation 2 puff inhalation Q6H PRN 03/11/24 05/13/24 Rx aerosol inhaler (Ventolin HFA) shortness of breath or wheezing #6.7 grams fluticasone propionate 110 1 puff inhalation BID 90 days #12 03/11/24 05/13/24 Rx mcg/actuation HFA aerosol inhaler grams fluticasone propionate 50 1 spray intranasal DAILY #16 grams 03/11/24 05/13/24 Rx mcg/actuation nasal spray,suspension (Allergy Relief (fluticasone)) cyclobenzaprine 5 mg tablet 5 mg PO TID PRN muscle spasm #30 03/18/24 05/13/24 Rx tabs esomeprazole magnesium 40 mg 40 mg PO DAILY #60 caps 03/18/24 05/13/24 Rx capsule,delayed release mirtazapine 15 mg tablet 15 mg PO DAILY #30 tabs 04/16/24 05/13/24 Rx sodium,potassium,mag sulfates 17.5 See Rx Instructions PO .COMPLEX 05/03/24 05/13/24 Rx gram-3.13 gram-1.6 gram oral soln #354 mL (Suprep Bowel Prep Kit) fluconazole 150 mg tablet 150 mg PO Q3D 2 doses #2 tabs 05/07/24 05/13/24 Rx New Prescriptions to Start Prescriptions: Allergies Allergy/AdvReac Type Severity Reaction Status Date / Time codeine AdvReac Mild Nausea Verified 05/13/24 07:03 Exam Data for Last 24 hours Vital signs and Labs for Last 24 Hours: Temp Pulse Resp BP Pulse Ox O2 Del Method O2 Flow Rate 97.5 F L 74 18 127/70 94 L Nasal Cannula 5 05/13/24 07:05 05/13/24 07:05 05/13/24 07:05 05/13/24 07:05 05/13/24 07:05 05/13/24 07:49 05/13/24 07:49 *Routine HEENT Exam Head: Present normocephalic Eye: Present EOMI and PERRL ENT: Present mucous membranes moist *Routine Neck Exam Neck: Present supple *Routine Respiratory Exam Respiratory: Present CTA bilaterally *Routine Cardiovascular Exam Cardiovascular: Present RRR *Routine Abdominal Exam Abdominal: Present soft and normoactive bowel sounds; Absent tenderness *Routine Rectal Exam Rectal:: deferred *Routine Genitalia Exam Genitalia:: deferred *Routine Extremities Exam Extremities: Absent cyanosis, clubbing or edema *Routine Skin Exam Skin: Present warm; Absent rash *Routine Neurological Exam Neurological: Present alert and oriented X3 Assessment and Plan *Assessment and plan (1) Dysphagia: Status: Acute Category: Medical Code(s): R13.10 - Dysphagia, unspecified (2) Family history of esophageal cancer: Status: Acute Category: Medical Code(s): Z80.0 - Family history of malignant neoplasm of digestive organs (3) Screening for colon cancer: Status: Acute Category: Medical Code(s): Z12.11 - Encounter for screening for malignant neoplasm of colon Plan A/P: 1. Dysphagia with family history of esophageal cancer and screening for colon cancer is the preprocedural diagnosis. The patient will be anesthetized/sedated using MAC sedation. The patient has been seen and examined. Cardiac and lung assessment prior to the examination is stable. Proceed with planned EGD and colonoscopy
--- NOTE | 2024-05-13 08:02 | P.PCN_ITS ---
[facility] Procedure Note Date: 05/13/24 Time: 08:03 Procedure Note:: Upper Endoscopy Procedure Report: Esophagogastroduodenoscopy with cold biopsies and TTS balloon dilation Endoscopost: Harsha Sal II, MD Referring Physician: Ryann Washburn Date of Procedure: May 13, 2024 Equipment: Olympus GIF 190 standard upper endoscope Sedation: MAC sedation Indications: Mrs. Helton is a 63-year-old female who is here for diagnostic/therapeutic upper endoscopy. She has had dysphagia for the last 3 to 4 months. This can occur with solids greater than liquids. She reports no heartburn or reflux and is on Nexium. The dysphagia is in the retrohyoid/upper retrosternal region. The patient does state that she has a family history of esophageal cancer. She reports no dyspepsia or nausea. She has had no weight loss. This is her first upper endoscopy. Procedure: Prior to the procedure, a history and physical exam was performed, and patient's medications and allergies were reviewed. The risks, benefits and alternatives of the sedation and procedure were discussed with the patient. All questions were answered and informed consent was obtained. The patient was brought to the procedure room. Patient identification and proposed procedure were verified by the physician and the nurse. The patient was placed in a left lateral decubitus position and the scope was passed under direct vision. Throughout the procedure, the patient's blood pressure, pulse, and oxygen saturations were monitored continuously. The upper GI endoscopy was accomplished without difficulty. The patient tolerated the procedure well. Findings: The scope was passed directly into the upper esophagus and advanced to the third portion of the duodenum. The post bulbar duodenum and duodenal bulb were normal with normal mucosa and conniventes. The ampulla was normal. The scope was withdrawn through a normal duodenal bulb and pylorus into the stomach. There was evidence of mild linear erythema of the antrum. There was moderate chronic gastritis of the body and fundus. Biopsies were obtained from the lesser curvature and body of the stomach to rule out H. pylori. Upon retroflexion there was no hiatal hernia. The scope was then withdrawn into the esophagus. There is no evidence of reflux esophagitis or Reyes's. Biopsies were taken from the GE junction. There was no ring. There were strong tertiary contractions and evidence of moderate esophageal dysmotility. The entire esophagus was dilated to 60 [place]/20 mm with a TTS hydrostatic balloon. There was some resistance at the cricopharyngeus. The remainder of the esophageal mucosa was normal. Impression: 1. Cricopharyngeal spasm status post dilation to 20 mm 2. Nonerosive GERD with moderate esophageal dysmotility 3. Mild reactive gastropathy of antrum and moderate chronic gastritis of body and fundus (type A) Plan: I will follow-up the biopsies and discuss the findings with the patient and family. I will proceed with screening colonoscopy.
--- NOTE | 2024-05-13 08:22 | P.PCN_ITS ---
[facility] Procedure Note Date: 05/13/24 Time: 08:22 Procedure Note:: Colonoscopy Procedure Report: Colonoscopy with cold snare polypectomy Endoscopist: Harsha Sal II, MD Referring physician: Ryann Washburn Date of Procedure: May 13, 2024 Equipment: Olympus 190 variable stiffness pediatric colonoscope Sedation: MAC sedation Indication: Mrs. Helton is a 63-year-old female who is here for initial screening colonoscopy. She reports no abdominal pain, weight loss, change in her bowel habits or rectal bleeding. She reports no family history of colon cancer. She does get some alternating diarrhea with constipation. Procedure: Prior to the procedure, a history and physical exam was performed, and patient's medications and allergies were reviewed. The risks, benefits and alternatives of the sedation and procedure were discussed with the patient. All questions were answered and informed consent was obtained. The patient was brought to the procedure room. Patient identification and proposed procedure were verified by the physician and the nurse. The patient was placed in a left lateral decubitus position and the scope was passed under direct vision. Throughout the procedure, the patient's blood pressure, pulse, and oxygen saturations were monitored continuously. The colonoscopy was accomplished without difficulty. The patient tolerated the procedure well. Findings: On digital rectal examination there was normal rectal tone. There were no external hemorrhoids. The colonoscope was introduced through the anal canal to the rectum and advanced to the cecum. The ileocecal valve and appendiceal orifice were identified. The scope was advanced a short distance into the ileum which appeared grossly normal. The scope was then withdrawn into the colon. There was a single 5 mm polyp in the ascending colon removed via cold snare polypectomy. The remaining cecum, ascending and transverse colon and mucosa were grossly normal. There were very mildly scattered diverticuli throughout the descending and sigmoid colon (LEFT colon). The rectum itself was normal. Upon re troflexion within the rectum there were grade 1 internal hemorrhoids. The preparation was excellent throughout with Huntington Preparation Score of 9. The cecal time was 10 minutes. Impression: 1. Diminutive 5 mm ascending colon polyp 2. Mild left-sided diverticulosis 3. Grade 1 internal hemorrhoids Plan: I will follow-up the polyp histology and recommend repeat surveillance colonoscopy again in 7 years if the polyp is adenomatous. I would encourage psyllium fiber supplementation on a maintenance basis.
[2024-05-13 08:26] VITALS: BP 92/60; PULSE 69; RESP 14; TEMP 36.6; O2SAT 96
[2024-05-13 08:36] VITALS: BP 101/64; PULSE 70; RESP 15; O2SAT 98
[2024-05-13 08:46] VITALS: BP 120/56; PULSE 68; RESP 16; O2SAT 98
[2024-05-13 08:56] VITALS: BP 117/63; PULSE 68; RESP 17; TEMP 36.6; O2SAT 99
== END 2024-05-13 09:03 | disposition home or self-care (01) ==
PROVIDERS: PCP Student in an Organized Health Care Education/Training Program; Visit Provider Internal Medicine Gastroenterology
PROC: 0DJ08ZZ Inspection of Upper Intestinal Tract, Via Natural or Artificial Opening Endoscopic (ICD-10-PCS; CPT 45378; principal; 2024-05-13 08:00)
DX: Z12.11 Encounter for screening for malignant neoplasm of colon (principal); R13.10 Dysphagia, unspecified; D12.2 Benign neoplasm of ascending colon; K57.30 Diverticulosis of large intestine without perforation or abscess without bleeding; K64.0 First degree hemorrhoids; K22.4 Dyskinesia of esophagus; K21.9 Gastro-esophageal reflux disease without esophagitis; K29.50 Unspecified chronic gastritis without bleeding; Z80.0 Family history of malignant neoplasm of digestive organs
CPT/HCPCS: 43239; 43249; 45385; 88305; C1726; J7120

== ENCOUNTER 2024-05-14 12:43 | Outpatient (CLI) | payer MEDICARE, MEDICAID, SELFPAY ==
--- NOTE | 2024-05-14 12:51 | MR_ITS ---
PROCEDURE INFORMATION: Exam: MR Head Without and With Contrast Exam date and time: 05/14/2024 1:12 PM Age: 63 years old Clinical indication: Other: Hearing loss; Additional info: Asymmetric snhl. Right sided hearing loss. Headache and dizziness TECHNIQUE: Imaging protocol: Magnetic resonance imaging of the head without and with contrast. Contrast material: PROHANCE; Contrast volume: 10 ml; Contrast route: IV; COMPARISON: CT HEAD/BRAIN WO CON 02/20/2021 10:55 AM FINDINGS: Brain: The internal auditory canals appear normal. There is gliosis and encephalomalacia in the right frontal lobe and right basal ganglia as well as in the left cerebellum. There is mild small vessel disease. There is no evidence of acute parenchymal hemorrhage, extra-axial collection, or acute infarction. There is no mass effect, midline shift, or downward herniation. There is no pathologic enhancement. Cerebral ventricles: Normal. No ventriculomegaly. Bones: Unremarkable. Paranasal sinuses: Normal as visualized. No acute sinusitis. Mastoid air cells: Normal as visualized. No mastoid effusion. Orbital cavities: Unremarkable. Soft tissues: Unremarkable. Other findings: The patient is status post aneurysm repair. IMPRESSION: 1. Normal appearance of the internal auditory canals. 2. Multifocal gliosis and encephalomalacia likely due to old hemorrhagic or ischemic events. 3. Mild small vessel disease.
[2024-05-14 13:20] LABS: Blood Urea Nitrogen 21 mg/dl (7-17); Estimated Glomerular Filt Rate 84 ml/min (>60); GFR (African American) 102 ML/MIN (>60)
[2024-05-14] MEDS: SODIUM CHLORIDE 0.9% 10ML SYR (RAD ONLY) 10 ML IV (14:05)
[2024-05-14] MEDS: GADOTERIDOL INJ 10ML SYRINGE 10 ML IV (14:05)
== END 2024-05-14 23:59 | disposition home or self-care (01) ==
LOC: RAD 12:43
PROVIDERS: PCP Student in an Organized Health Care Education/Training Program; Visit Provider Student in an Organized Health Care Education/Training Program
DX: H90.3 Sensorineural hearing loss, bilateral (principal)
CPT/HCPCS: 36415; 70553; 82565; 84520; A9576

== ENCOUNTER 2024-05-23 09:57 | Outpatient (CLI) | payer MEDICARE, MEDICAID, SELFPAY ==
[2024-05-23 17:57] LABS: Influenza A, PCR Not Detected (NotDetected); Influenza B, PCR Not Detected (NotDetected)
[2024-05-23 21:01] LABS: Coronavirus 19, PCR Detected (NotDetected)
== END 2024-05-23 23:59 | disposition home or self-care (01) ==
LOC: LAB.DROPOF 05-24 09:18
PROVIDERS: PCP Student in an Organized Health Care Education/Training Program; Visit Provider Student in an Organized Health Care Education/Training Program
DX: R50.9 Fever, unspecified (principal)
CPT/HCPCS: 87636

== ENCOUNTER 2024-07-19 08:10 | Outpatient (CLI) | payer MEDICARE, MEDICAID, SELFPAY ==
--- NOTE | 2024-07-19 08:22 | MR_ITS ---
FINAL REPORT CLINICAL HISTORY: liver cyst noted on CT done at another hospital. COMPARISON: CTA abdomen 09/07/2023 FINDINGS: Multiplanar MR imaging of the abdomen was performed without and with contrast. On the T2 weighted images, there is a bilobed ovoid cystic lesion in the anterior right lobe of the liver measuring 1.4 x 0.8 cm, well-seen on image 10 of series 9. On the pre and post images, there is no contrast enhancement. The remainder of the liver parenchyma is homogeneous. The spleen, pancreas, adrenal glands, and kidneys are unremarkable. IMPRESSION: 1.4 cm bilobed cyst anterior right lobe of the liver consistent with benign cyst. Reviewed, Interpreted and Dictated by Alexandr Dutta MD Transcribed by Juani Brasher Authenticated and [facility]
[2024-07-19 08:44] LABS: Blood Urea Nitrogen 14 mg/dl (7-17); Estimated Glomerular Filt Rate 101 ml/min (>60); GFR (African American) 122 ML/MIN (>60)
[2024-07-19] MEDS: SODIUM CHLORIDE 0.9% 50ML BAG 25 ML IV (10:07)
[2024-07-19] MEDS: GADOTERIDOL INJ 10ML SYRINGE 10 ML IV (10:07)
[2024-07-19] MEDS: SODIUM CHLORIDE 0.9% 10ML SYR (RAD ONLY) 10 ML IV (10:07)
== END 2024-07-19 23:59 | disposition home or self-care (01) ==
LOC: RAD 08:11
PROVIDERS: PCP Student in an Organized Health Care Education/Training Program; Visit Provider Student in an Organized Health Care Education/Training Program
DX: Z01.812 Encounter for preprocedural laboratory examination (principal); K76.89 Other specified diseases of liver; R93.5 Abnormal findings on diagnostic imaging of other abdominal regions, including retroperitoneum
CPT/HCPCS: 36415; 74183; 82565; 84520; A9576

== ENCOUNTER 2024-08-09 11:40 | Outpatient (CLI) | payer MEDICARE, MEDICAID, SELFPAY ==
[2024-08-09 16:17] LABS: Adenovirus F 40/41, stool Not Detected (NotDetected); Astrovirus Not Detected (NotDetected); Campylobacter Not Detected (NotDetected); Clostridium Difficile A/B, PCR Not Detected (NotDetected); Cryptosporidium Not Detected (NotDetected); Cyclospora Cayetanesis Not Detected (NotDetected); Entamoeba histolytica Not Detected (NotDetected); Enteroaggregative E coli Not Detected (NotDetected); Enteropathogenic E coli Not Detected (NotDetected); Enterotoxigenic E coli Not Detected (NotDetected); Giardia lamblia Not Detected (NotDetected); Norovirus Not Detected (NotDetected); Plesimonas Shigalloides, PCR Not Detected (NotDetected); Rotavirus A Not Detected (NotDetected); Salmonella, PCR Not Detected (NotDetected); Sapovirus Not Detected (NotDetected); Shiga-like toxin E coli Not Detected (NotDetected); Shigella Enterovasive E coli Not Detected (NotDetected); Vibrio Cholerae Not Detected (NotDetected); Vibrio, PCR Not Detected (NotDetected); Yersinia Entercolitica, PCR Not Detected (NotDetected)
== END 2024-08-09 23:59 | disposition home or self-care (01) ==
LOC: LAB 11:40
PROVIDERS: PCP Student in an Organized Health Care Education/Training Program; Visit Provider Student in an Organized Health Care Education/Training Program
DX: R19.7 Diarrhea, unspecified (principal)
CPT/HCPCS: 87506

== ENCOUNTER 2024-08-28 06:25 | Outpatient (CLI) | payer MEDICARE, MEDICAID, SELFPAY ==
--- NOTE | 2024-08-28 06:29 | CT_ITS ---
FINAL REPORT TECHNIQUE: Axial CT images were performed through the head. Sagittal and coronal reformatted images were submitted. This study was performed with techniques to keep radiation doses as low as reasonably achievable (ALARA). Individualized dose reduction techniques using automated exposure control or adjustment of mA and/or kV according to the patient's size were employed. CLINICAL HISTORY: Headache COMPARISON: 02/14/2023 FINDINGS: There is streak artifact in the left parasellar region probably related to an aneurysm clip. The ventricles are normal in size. There is encephalomalacia in the right frontal lobe, which is stable. There is a left temporal craniotomy defect, which is stable. There is no evidence of hemorrhage. There is no mass effect or edema identified. There is no abnormal extra-axial fluid seen. The paranasal sinuses are well aerated. IMPRESSION: Stable postoperative changes from prior aneurysm clipping in the left parasellar region. Stable left temporal craniotomy defect. Encephalomalacia right frontal lobe. Reviewed, Interpreted and Dictated by Alexandr Dutta MD Transcribed by Rochelle Dalal Authenticated and [facility]
== END 2024-08-28 23:59 | disposition home or self-care (01) ==
LOC: RAD 06:26
PROVIDERS: PCP Student in an Organized Health Care Education/Training Program; Visit Provider Specialist
DX: R51.9 Headache, unspecified (principal)
CPT/HCPCS: 70450

== ENCOUNTER 2024-12-02 11:56 | Outpatient (CLI) | payer MEDICARE, MEDICAID, SELFPAY ==
--- NOTE | 2024-12-02 12:00 | XR_ITS ---
FINAL REPORT TECHNIQUE: Chest PA & Lateral CLINICAL HISTORY: Shortness of breath COMPARISON: 07/03/2023 FINDINGS: 2 views of the chest were performed. The heart size is normal. The patient is status post median sternotomy. The mediastinum is otherwise within normal limits. There is no acute cardiopulmonary process. There is scarring at the lung bases. There are no pleural effusions. There is no pneumothorax. There is cervical fusion hardware present. IMPRESSION: No definite acute cardiopulmonary process. Reviewed, Interpreted and Dictated by Alexandr Dutta MD Transcribed by Rochelle Dalal Authenticated and [facility]
[2024-12-02 12:29] LABS: Basophils # 0.1 K/mm3 (0-0.2); Basophils % 0.5 % (0.1-2.0); Eosinophils # 0.2 Kmm3 (0.0-0.4); Eosinophils % 2.2 % (0.1-12.0); Hemoglobin 13.6 g/dL (12.2-16.2); Immature Granulocytes # 0.03 10^3uL; Immature Granulocytes % 0.3 %; Lymphocytes # 1.9 K/mm3 (0.7-4.5); Mean Corpuscular Hemoglobin 31.5 pg (27.0-31.2); Mean Corpuscular Volume 92.6 fl (81-99); Mean Platelet Volume 10.7 fl (7.4-10.4); Monocytes # 0.8 K/mm3 (0.1-1.0); Monocytes % 8.3 % (1.7-9.3); Neutrophils # 6.5 K/mm3 (1.8-7.8); Neutrophils % 68.7 % (37.0-80.0); Nucleated Red Blood Cells # 0 10^3/uL; Nucleated Red Blood Cells % 0 %; Platelet Count 394 K/mm3 (142-424); Red Blood Count 4.32 M/mm3 (4.20-5.40); Red Cell Distribution Width 13.6 % (11.5-17.5); White Blood Count 9.4 K/mm3 (4.8-10.8)
[2024-12-02 12:45] LABS: D-Dimer 0.66 ug/mL (0.0-0.5)
[2024-12-02 13:05] LABS: Alanine Aminotransferase 16 U/L (12-78); Albumin Level 4.2 g/dl (3.5-5.0); Albumin/Globulin Ratio 1.8 (1.1-1.8); Alkaline Phosphatase 120 U/L (38-126); Anion Gap 6.7 mEq/L (5-15); Aspartate Amino Transferase 25 U/L (14-36); Bilirubin,Total 0.5 mg/dl (0.2-1.3); Blood Urea Nitrogen 13 mg/dl (7-17); Calcium 9.1 mg/dl (8.4-10.2); Carbon Dioxide 27 mmol/L (22.0-30.0); Chloride 110 mmol/L (98-107); Estimated Glomerular Filt Rate 72 ml/min (>60); GFR (African American) 87 ML/MIN (>60); Globulin 2.4 g/dL (1.3-3.2); Glucose 73 mg/dl (74-100); Potassium 3.7 mmoL/L (3.5-5.1); Sodium 140 mmol/L (136-145); Total Protein,Serum 6.6 g/dl (6.3-8.2)
== END 2024-12-02 23:59 | disposition home or self-care (01) ==
LOC: LAB 11:57
PROVIDERS: PCP Internal Medicine Adolescent Medicine; Visit Provider Internal Medicine Pulmonary Disease
DX: J96.01 Acute respiratory failure with hypoxia (principal); J84.9 Interstitial pulmonary disease, unspecified; J45.909 Unspecified asthma, uncomplicated
CPT/HCPCS: 36415; 71046; 80053; 85025; 85378

== ENCOUNTER 2024-12-04 14:42 | Outpatient (CLI) | payer MEDICARE, MEDICAID, SELFPAY ==
--- NOTE | 2024-12-04 | CA_ITS ---
APPROVED REPORT EXAM: Comprehensive 2D, Doppler, and color-flow Echocardiogram Machine Bunch Maker: Emily Velazquez CRT Ht: 5 ft 0 in Wt: 126lbs BSA: 1.53 BP: 107/67 mmHg Indications: Shortness of Breath, COPD, SOB, LUNG NODULE, Brain surgery aneurysm x 3, abn CT chest, lung nodule, lung surgery years ago, back injury 2D Dimensions LA Volume 21.50 mL LA Volume Index 13.70 mL/m2 (M/F) 16-34 M-Mode Dimensions RVDd 2.31 cm (0.9-2.6) LA Diam 2.98 cm (1.9-4.0) LVDd 3.53 cm (3.5-5.7) LVDs 1.88 cm (3.5-5.7) IVSd 1.34 cm (0.6-1.1) PWd 0.88 cm (0.6-1.1) EF (Teich) 79.00% FS 46.70% EDV (Teich) 51.90 mL ESV (Teich) 10.90 mL LV Diastology E Decel Time 177 (160-240 msec) E/A Ratio 1.17 MED A' 13.60 cm/s LAT A' 7.10 cm/s Aortic Valve AO Peak GR. 6.40 mmHg Mitral Valve MV E Max Thang. 75.0 (40-130 cm/s) MV A Velocity 64.0 (40-130 cm/s) E/A Ratio 1.17 MV PHT 52.0 ms Pulmonary Valve PV Peak Velocity 184.0 (50-150 cm/s) Tricuspid Valve TR P. Velocity 165.00 cm/s RAP Estimate 10.00 mmHg RVSP 20.90 mmHg Left Ventricle The left ventricle is normal size. The left ventricular systolic function is normal. The left ventricular ejection fraction is within the normal range. There is normal left ventricular wall thickness. There is normal LV segmental wall motion. The left ventricular diastolic function is normal. LVEF is 65%. Right Ventricle The right ventricle is normal size. The right ventricular systolic function is normal. Atria The left atrium size is normal. The right atrium size is normal. There is no Doppler evidence of interatrial shunt. Aortic Valve The aortic valve is mildly thickened. There is no aortic valvular stenosis. Trace aortic regurgitation. Mitral Valve The mitral valve leaflets are mildly thickened. Mild mitral regurgitation. No evidence of mitral valve stenosis. Tricuspid Valve Tricuspid valve is grossly normal in structure and function. Trace tricuspid regurgitation. There is insufficient TR jet to estimate RVSP. Pulmonic Valve The pulmonary valve is normal in structure. Mild pulmonic regurgitation. Great Vessels The aortic root is normal in size. IVC is normal in size and collapses >50% with inspiration. Pericardium There is no pericardial effusion. Other Information Study Quality: Adequate Conclusion Normal biventricular systolic function. Mild MR, mild PI. Electronically signed by : Clover Mandel MD 12/15/2024 20:57:50
--- NOTE | 2024-12-04 14:30 | US_ITS ---
FINAL REPORT CLINICAL HISTORY: Soft tissue mass left arm FINDINGS: Limited sonographic images of the left arm were obtained. There is no cystic lesion. IMPRESSION: No sonographic abnormality identified. Reviewed, Interpreted and Dictated by Alexandr Dutta MD Transcribed by Emily Lynch Authenticated and [facility]
== END 2024-12-04 23:59 | disposition home or self-care (01) ==
LOC: RAD 14:43
PROVIDERS: PCP Internal Medicine Adolescent Medicine; Visit Provider Internal Medicine Pulmonary Disease
DX: I08.8 Other rheumatic multiple valve diseases (principal); R22.32 Localized swelling, mass and lump, left upper limb
CPT/HCPCS: 76882; 93306

== ENCOUNTER 2024-12-13 12:37 | Outpatient (CLI) | payer MEDICARE, MEDICAID, SELFPAY ==
[2024-12-13] MEDS: 0.9 % SODIUM CHLORIDE 50 ML VIAL IV (13:00)
[2024-12-13] MEDS: SODIUM CHLORIDE 0.9% 10ML SYR (RAD ONLY) 10 ML IV (13:01)
[2024-12-13] MEDS: IOPAMIDOL-370 (76%);100ML BOTTLE 80 ML IV (13:01)
--- NOTE | 2024-12-13 13:30 | CT_ITS ---
FINAL REPORT TECHNIQUE: Thin section axial CT with contrast with multiplanar reconstruction This study was performed with techniques to keep radiation doses as low as reasonably achievable, (ALARA). Individualized dose reduction techniques using automated exposure control or adjustment of mA and/or kV according to the patient's size were employed. CLINICAL HISTORY: Hypoxia COMPARISON: Chest CT 10/20/2023 FINDINGS: Pulmonary vessels enhance in normal fashion without evidence of embolism. Thoracic aorta shows no dissection or aneurysm. There is a new irregular density in the lateral left upper lobe measuring 12 x 10 mm in size, best seen on image #32. This may be inflammatory versus neoplastic. There is a chronic nodule seen also in the left upper lobe, measuring 10 mm in size, stable. This is best seen on image #29. Moderate changes of emphysema are noted. There is evidence of old calcified granulomatous disease. There is no significant pleural effusion. There is no significant pericardial effusion. No mediastinal or hilar adenopathy is present. IMPRESSION: 1. No evidence of pulmonary embolism 2. New irregular density in the lateral left upper lobe as described, inflammatory versus neoplastic. Recommend a 2-month chest CT ,which can be done without contrast, for further evaluation. 3. Stable chronic nodule left upper lobe measuring 10 mm in size. Reviewed, Interpreted and Dictated by Teresa Armenta MD Transcribed by Suha Francis Authenticated and [facility]
== END 2024-12-13 23:59 | disposition home or self-care (01) ==
LOC: RAD 12:39
PROVIDERS: PCP Internal Medicine Adolescent Medicine; Visit Provider Internal Medicine Pulmonary Disease
DX: R91.1 Solitary pulmonary nodule (principal); R91.8 Other nonspecific abnormal finding of lung field; J96.01 Acute respiratory failure with hypoxia; R79.89 Other specified abnormal findings of blood chemistry
CPT/HCPCS: 71275; Q9967

== ENCOUNTER 2025-03-10 12:11 | Outpatient (CLI) | payer MEDICARE, MEDICAID, SELFPAY ==
--- OUTSIDE RECORDS SUMMARY | 2025-03-10 12:12 | XMS_ITS ---
Author Organization [employer] [facility] Address [address] [place] [address] Phone Care Team Providers Care Regulatory Lead Name Role Phone Arleen Ellison MD Primary Care Physician [ ] Conditions or Problems Problem Name Problem Code Onset Date Status Entry Date Provider Comment Standard Description Annotate ARTHRITIS, HAND 426329792 (SNOMED CT) 09/28 Active 09/28 Arleen Ellison MD Arthritis of hand INSOMNIA NEC 750256977 (SNOMED CT) 09/28 Active 09/28 Arleen Ellison MD Insomnia TOBACCO USE DIS F17.200 (ICD-10-CM) 08/17 Active 08/17 Arleen Ellison MD Nicotine dependence, unspecified, uncomplicated BRONCHITIS ACUTE 04654440 (SNOMED CT) 08/17 Inactive 08/17 Arleen Ellison MD Acute bronchitis Medications Medication Instructions Start Date Stop Date Generic Name [facility] Provider TRAZODONE HCL 50 MG TABS 1BY MOUTH EVERY NIGHT TRAZODONE HCL 32573356841 Arleen Ellison MD ETODOLAC 400 MG TABS 1 BY MOUTH TWO TIMES A DAY ETODOLAC [id number] Arleen Ellison MD PROAIR HFA 108 (90 Base) MCG/ACT INHALATION AEROSOL SOLUTION [id number] ALBUTEROL SULFATE [id number] Arleen Ellison MD MUCINEX 600 MG [id number] 2pobid GUAIFENESIN [id number] Arleen Ellison MD AZITHROMYCIN 250 MG TABS 2po x1d [id number] AZITHROMYCIN [id number] Arleen Ellison MD Medications Administered No information available. Allergies, Adverse Reactions, Alerts Allergy Name Reaction Description Start Date Severity Statu s Provider CODEINE Critical Active Arleen nova MD Results No information available. Plan of Care No information available. Procedures No information available. Vital Signs Date Name Value Unit Description Body Temperature 97.0 [degF] temperat ure E&M Body Temperature 36.1 Vandana temperat ure in centigrade E&M BP Diastolic 71 mm[Hg] blood pressu re, diastolic BP Systolic 112 mm[Hg] blood pressur e, systolic Heart Rate 71 /min pulse rate Weight Measured 125.6 [lb_av] weight E& M Weight Measured 125.6 [lb_av] weight E& M Weight Measured 57.09 kg weight in kilograms E&M Immunizations No information available. Advance Directives No information available.
--- OUTSIDE RECORDS SUMMARY | 2025-03-10 12:13 | XMS_ITS | Clinical Summary ---
Author Organization [facility] Address [address] [place] [address] Care Team Providers Care Chemical Sales Representative Name Role Phone Jesus Levi MD Primary Care Provider + [phone] Allergies No known active allergies Medications albuterol 108 (90 Base) MCG/ACT inhaler Active ALPRAZolam (Xanax) 2 MG tablet 5 Active amitriptyline (Elavil) 10 MG tablet 5 Active carBAMazepine (TEGretol) 200 MG tablet 2 times a day. 4 Active celecoxib (CeleBREX) 200 MG capsule TAKE 1 CAPSULE BY MOUTH ONCE A DAY NEEDED FOR PAIN 5 Active diazePAM (Valium) 5 MG tablet 5 Active diclofenac (Voltaren) 1 % topical gel 4 Active escitalopram (Lexapro) 10 MG tablet 4 Active fluticasone (Flonase) 50 MCG/ACT nasal spray 4 Active levothyroxine (Synthroid, Levoxyl) 100 MCG tablet 5 Active loperamide (Imodium) 2 MG capsule TAKE 1 CAPSULE BY MOUTH 4 TIMES DAILY NEEDED 5 Active methocarbamol (Robaxin) 500 MG tablet every 8 hours. 5 Active mirtazapine (Remeron) 15 MG tablet 1 (one) time each day at the same time. 5 Active Paxlovid Oral Therapy Pack TAKE 2 TABLETS OF NIRMATRELVIR WITH 1 TABLET OF RITONAVIR TWICE DAILY FOR 5 DAYS 4 Active Calcium + Vitamin D3 600-10 MG-MCG tablet 1 (one) time each day at the same time. 5 03/07/20 25 meloxicam (Mobic) 7.5 MG tablet Take 1 tablet by mouth. 02/19/20 25 Active Problems Problem Noted Date Diagnosed Date Soft tissue mass 01/03/2025 Encounters Date Type Department Care Team Description 01/03/2025 9:30 AM EDT Consult [facility] Plastic & Reconstructive Surgery [address] [place] [phone] Zelalem South MD Soft tissue mass (Primary Dx) 01/03/2025 Travel from Last 3 Months Immunizations Immunization Administration Dates Next Due Influenza, seasonal, injectable 07/24/2013 Pneumococcal Polysaccharide PPV23 07/24/2013 Family History Medical History Relation Name Comments Lung cancer Father Esophageal cancer Mother Lymphoma Mother Relation Name Status Comments Father Mother Social History Tobacco Use Types Packs/Day Years Used Date Smoking Tobacco: Former Cigarettes 1 41.6 S tarted: 1983 Smokeless Tobacco: Never Comments Unknown Sex and Gender Information Value Date Recorded Sex Assigned at Female 11/22/2024 11:39 AM EDT Legal Sex Female 8:13 PM EDT Gender Identity Female 11/22/2024 11:39 AM EDT Sexual Orientation Not on file Last Filed Vital Signs Vital Sign Reading Time Taken Comments Blood Pressure 132/84 01/03/2025 9:27 AM EDT Pulse 64 01/03/2025 9:27 AM EDT Temperature - - Respiratory Rate - - Oxygen Saturation 98% 01/03/2025 9:27 AM EDT Inhaled Oxygen Concentration - - Weight 57.9 kg (127 lb 10.3 oz) 01/03/2025 9:27 AM EDT Height 152.4 cm (5') 01/03/2025 9:27 AM EDT Body Mass Index 24.93 01/03/2025 9:27 AM EDT Plan of Treatment Upcoming Encounters Date Type Department Care Team (Late st Contact Info) Description 01/16/2026 10:30 AM EDT Office Visit [facility] Plastic & Reconstructive Surgery [address] [place] [address] Zelalem South MD [address] [place] [phone] Health Maintenance Due Date Last Done Comments [facility]-Bone Density Scan 1959 [facility]-Depression Screening 1959 [facility]-Hepatitis C Screening 1959 [facility]-Medicare Annual Wellness (AWV) 1959 [facility]-/Child/Adol SDOH Screenings 1959 [facility]- SDOH Screenings 1977 [facility]-Adult SDOH Screenings 1977 [facility]-DTaP,Tdap,and Td Vaccines (1 - Tdap) 1978 CT Colonography 2004 Colonoscopy 2004 FIT-DNA 2004 FIT 2004 FOBT 2004 Sigmoidoscopy 2004 [facility]-Colorectal Cancer Screening 2004 [facility]-Breast Cancer Screening 2009 [facility]-Zoster Vaccines (1 of 2) 2009 [facility]-RSV Vaccine: 60+ Years or (1 - Risk 60-74 years 1-dose series) 2019 [id number]-[id number]-10 Vaccine ( season) 2024 12/31/2021, 06/09/2021, 11/04/2020, Additional history exists [facility]-Influenza Vaccine (#1) 2025 05/07/2024, [facility]-Pneumococcal Vaccine: 50+ Years Completed 05/07/2024, 07/24/2013 HPV Vaccines Aged Out No longer eligi ble based on patient's age to complete this topic [facility]-HIB Vaccines Aged Out No longer e ligible based on patient's age to complete this topic [facility]-Hepatitis A Vaccines Aged Out No longer eligible based on patient's age to complete this topic [facility]-IPV Vaccines Aged Out No longer e ligible based on patient's age to complete this topic [facility]-Rotavirus Vaccines Aged Out No lo nger eligible based on patient's age to complete this topic Insurance [facility] [place] [employer] MEDICAID Member Subscriber Plan / Payer (Ef fective 2020-Present) Name:Nava Helton Relation to Subscriber:Self Name:Nava Helton Payer ID:[id number] (NAIC) Group ID:Not on file Type:Medicaid Address: [place] [id number] [employer] MEDICARE MEDICAID Care Teams Chemical Sales Representative Relationship Specialty Start Date End Date Jesus Levi MD [address] [place] [id number] PCP - General 12/04/20
--- OUTSIDE RECORDS SUMMARY | 2025-03-10 12:14 | XMS_ITS | Encounter Summary ---
Author Organization [facility] Address [address] [place] [address] Care Team Providers Care Sales Analytics Manager Name Role Phone Jesus Levi MD Primary Care Provider [phone] Reason for Referral * Consultation (Routine) - Closed Specialty Diagnoses / Procedures Referred By Cristina chaidez Referred To Contact Plastic Surgery Diagnoses Multiple lipomas Silas Baires MD [address] [facility] [address] [place] [phone] Phone: tel: fax: Referral ID Status Reason Start Date Expiration Date V isits Requested Visits Authorized [id number] Closed Specialty Services Required 11/22/2024 05/24/2026 1 1 Encounter Details Date Type Department Care Team (Late Contact Info) Description 11/22/2024 [facility] [address] [place] [phone] Silas Baires MD [address] [facility] [address] [address] Multiple lipomas (Primary Dx) Social History Tobacco Use Types Packs/Day Years Used Date Smoking Tobacco: Former Comments Unknown Sex and Gender Information Value Date Recorded Sex Assigned at Female 11/22/2024 11:39 AM EDT Legal Sex Female 8:13 PM EDT Gender Identity Female 11/22/2024 11:39 AM EDT Sexual Orientation Not on file documented as of this encounter Plan of Treatment Upcoming Encounters Date Type Department Care Team (Late st Contact Info) Description 01/16/2026 10:30 AM EDT Office Visit [facility] Plastic & Reconstructive Surgery [address] [place] [phone] Zelalem South MD [address] [facility] [address] [place] [phone] Scheduled Referrals Name Type Priority Associated Diagnoses Order Schedule Ambulatory Referral to Plastic Surgery Outpatient Referral Routine Multiple lipomas Ordered: 11/22/2024 documented as of this encounter Visit Diagnoses Diagnosis Multiple lipomas- Primary documented in this encounter Care Teams Sales Analytics Manager Relationship Specialty Start Date End Date Jesus Levi MD [address] [phone] PCP - General 12/04/20 documented as of this encounter
--- OUTSIDE RECORDS SUMMARY | 2025-03-10 12:14 | XMS_ITS | Patient Health Record ---
Author Organization [facility] Address [address] [facility] [address] [place] [address] Care Team Providers Care Manager Of Creative Services Name Role Phone Brooklynn Ceballos Unavailable [phone] Brooklynn Ceballos Unavailable Unavailable Gabriela Pace Unavailable [phone] Collette Castle Unavailable [phone] AlexisDorie martinez Unavailable [phone] Allergies No Known Allergies Results Component Value Reference Range Flag Notes Rapid Plasma Reagin (RPR) wi th Titer Reviewed date:09/10/2024 08:15:05 AM Interpretation: Performing Lab: Notes/Report: RPR NONREACTIVE NONREACTIVE N Qualitative and quantitative nontreponemal test for the serologic detection of syphilis. Result analyzed by Manual Methods TITER N/R N TSH with Reflex to Free T3 a nd Free T4 Reviewed date:09/10/2024 08:57:46 AM Interpretation: Performing Lab: Notes/Report: TSH (T3 and T4 Reflex) 3.9 0.35-4.94 uIU/ml N Normal Result analyzed by [facility] QuantiFERON TB Reviewed date:09/11/2024 09:49:47 AM Interpretation: Performing Lab: Notes/Report: Interpretation (QuantiFERON TB) NEGATIVE N M. tuberculosis infection NOT likely (Ref Interval: Negative) Interpretive Data: Interferon gamma release is measured for specimens from each of the four collection tubes. A qualitative result (Negative, Positive, or Indeterminate) is based on interpretation of the four values, NIL, MITOGEN minus NIL (MITOGEN-NIL), TB1 minus NIL (TB1-NIL), and TB2 minus NIL (TB2- NIL). The NIL value represents nonspecific reactivity produced by the patient specimen. The MITOGEN-NIL value serves as the positive control for the patient specimen, demonstrating successful lymphocyte activity. The TB1-NIL tube specifically detects CD4+ lymphocyte reactivity, specifically stimulated by the TB1 antigens. The TB2-NIL tube detects both CD4+ and CD8+ lymphocyte reactivity, stimulated by TB2 antigens. An overall Negative result does not completely rule out TB infection. A false-positive result in the absence of other clinical evidence of TB infection is not uncommon. Refer to: Updated Guidelines for Using Interferon Gamma Release Assays to Detect Mycobacterium tuberculosis Infection --- [place], 2010 (http://www.cdc.gov/m mwr/preview/mmwrhtml/ pf6339a3 .htm), for more information concerning test performance in low-prevalence populations and use in occupational screening. Mitogen >10.0 0.5000 <= IU/mL N Nil 0.395 N TB1-Antigen 0.416 N TB2-Antigen 0.415 N Hepatitis B Total Core Antib fredi Reviewed date:09/10/2024 08:54:15 AM Interpretation: Performing Lab: Notes/Report: Hepatitis B Total Core Antibody NON REACTIVE NON REACTIVE N Result analyzed by [facility] Hepatitis B Core IgM Antibod y Reviewed date:09/10/2024 08:54:21 AM Interpretation: Performing Lab: Notes/Report: Hepatitis B Core IgM Antibody NON REACTIVE NON REACTIVE N Result analyzed by [facility] CBC with Diff Reviewed date:09/10/2024 08:56:50 AM Interpretation: Performing Lab: Notes/Report: BASO % 1.10 0-1.6 % N EO # 0.28 0-0.5 10e3/uL N EO % 4.17 0.4-7.3 % N Hematocrit 48.2 32-44.7 % H Hemoglobin 14.8 11-15 g/dL N LYMPH # 1.35 0.9-3.8 10e3/uL N LYMPH % 20.2 14.5-48.7 % N MCH 32.3 26-34 pg N MCHC 30.7 32-35 g/dL L MCV 105.0 75.98-101.58 fL H MONO # 0.40 0.2-0.9 10e3/uL N MONO % 5.99 4-11.9 % N MPV 10.70 6.8-10.7 fL N NEUT # 4.55 1.9-7.3 10e3/uL N NEUT % 67.90 40.8-77.3 % N BASO # 0.07 0-0.1 10e3/uL N PLT 304.00 150-450 10e3/uL N RBC 4.58 3.6-4.9 10e6/uL N RDW 15.2 12.3-16.3 % N WBC 6.71 3.8-10.7 10e3/uL N Comprehensive Metabolic Pane l (CMP) Reviewed date:09/10/2024 08:58:00 AM Interpretation: Performing Lab: Notes/Report: Anion Gap 7 4-12 N Aspartate Aminotransferase (AST/SGOT) 26 11-34 U/L N Alanine Aminotransferase (ALT/SPGT) 18 0-34 U/L N Albumin 3.9 3.4-4.8 g/dL N Albumin/Globulin Ratio 1.4 N Alkaline Phosphate 92 40-150 U/L N Bilirubin, Total 0.2 0.2-1.2 mg/dL N BUN/Creatinine Ratio 20 N Calcium 9.4 8.4-10.2 mg/dL N Chloride 109 98-107 mmol/L H CO2 26 22-31 mmol/L N Creatinine 0.70 0.57-1.11 mg/dL N eGFR 95.8 >59 mL/ min/ 1.73m? N Globulin 2.7 1.5-4.5 g/dL N Glucose 100 70-99 mg/dL H Potassium (K) 4.5 3.5-5.1 mmol/L N Protein, Total 6.6 6.4-8.3 g/dL N Sodium (Na) 142 136-145 mmol/L N Urea (BUN) 14 7-21 mg/dL N Treponema pallidum by TP-PA Reviewed date:06/04/2024 10:26:43 AM Interpretation: Performing Lab: Notes/Report: TP-PA PREVIOUSLY REACTIVE NON REACTIVE A Result analyzed by Manual Methods Rapid Plasma Reagin (RPR) wi th Titer Reviewed date:06/04/2024 10:26:33 AM Interpretation: Performing Lab: Notes/Report: RPR NONREACTIVE NONREACTIVE N Qualitative and quantitative nontreponemal test for the serologic detection of syphilis. Result analyzed by Manual Methods TITER N/R Syphilis with Reflex to RPR Titer and TP-PA Confirmation Reviewed date:09/10/2024 08:53:34 AM Interpretation: Performing Lab: Notes/Report: Syphilis REACTIVE Nonreactive HIV Ag/Ab with Reflex to HIV -1 Quantitative NAAT Reviewed date:09/10/2024 08:53:40 AM Interpretation: Performing Lab: Notes/Report: HIV Ag/Ab (HIV-1 Qnt NAAT Reflex) NON REACTIVE NON REACTIVE N Result analyzed by [facility] Hepatitis C Antibody with Re flex Reviewed date:09/10/2024 08:53:47 AM Interpretation: Performing Lab: Notes/Report: Hepatitis C Antibody NON REACTIVE Nonreactive Hepatitis B Surface Antigen Reviewed date:09/10/2024 08:54:08 AM Interpretation: Performing Lab: Notes/Report: Hepatitis B Surface Antigen NON REACTIVE NON REACTIVE N Result analyzed by [facility] Hepatitis B Surface Antibody Reviewed date:09/10/2024 08:53:54 AM Interpretation: Performing Lab: Notes/Report: Hepatitis B Surface Antibody NON REACTIVE NON REACTIVE N Result analyzed by [facility] TSH with Reflex to Free T3 a nd Free T4 Reviewed date:06/04/2024 10:28:23 AM Interpretation: Performing Lab: Notes/Report: TSH (T3 and T4 Reflex) 1.7444 0.3500 - 4.9400 ?IU/mL Normal T. vaginalis Reviewed date:06/04/2024 10:31:15 AM Interpretation: Performing Lab: Notes/Report: Trichomonas vaginalis Detected Not Detected A Syphilis with Reflex to RPR Titer and TP-PA Confirmation Reviewed date:06/04/2024 10:28:06 AM Interpretation: Performing Lab: Notes/Report: Syphilis (Titer and TP-PA Reflex) Reactive Nonreactive A HIV Ag/Ab with Reflex to HIV -1 Quantitative NAAT Reviewed date:06/04/2024 10:26:51 AM Interpretation: Performing Lab: Notes/Report: HIV Ag/Ab (HIV-1 Qnt NAAT Reflex) Nonreactive Nonreactive Hepatitis C Antibody with Re flex Reviewed date:06/04/2024 10:26:47 AM Interpretation: Performing Lab: Notes/Report: Hepatitis C Antibody (Reflex) Nonreactive Nonreactive S/CO Hepatitis B Total Core Antib fredi Reviewed date:06/04/2024 10:28:29 AM Interpretation: Performing Lab: Notes/Report: Hepatitis B Total Core Antibody Nonreactive < 0.8000 Hepatitis B Surface Antigen Reviewed date:06/04/2024 10:28:16 AM Interpretation: Performing Lab: Notes/Report: Hepatitis B Surface Antigen Nonreactive Nonreactive Hepatitis B Surface Antibody Reviewed date:06/04/2024 10:28:12 AM Interpretation: Performing Lab: Notes/Report: Hepatitis B Surface Antibody Nonreactive - Hepatitis B Core IgM Antibod y Reviewed date:06/04/2024 10:29:00 AM Interpretation: Performing Lab: Notes/Report: Hepatitis B Core IgM Antibody Nonreactive Nonreactive Chlamydia and Gonorrhea Pane l Reviewed date:06/04/2024 10:31:25 AM Interpretation: Performing Lab: Notes/Report: Chlamydia trachomatis Not Detected Not Detected Neisseria gonorrhoeae Not Detected Not Detected CBC with Diff Reviewed date:06/04/2024 10:28:44 AM Interpretation: Performing Lab: Notes/Report: BASO # 0.153 0.0000 - 0.8000 x10 Normal BASO % 1.65 0.0000 - 1.7000 % Normal EO # 0.008 0.0300 - 0.4400 x10 L Low EO % 0.091 0.6000 - 7.3000 % L Low Hematocrit 46.1 37.7000 - 53.700 0 % Normal Hemoglobin 14.6 10.8000 - 14.200 0 g/dL H High LYMPH # 1.36 1.0900 - 2.9900 x10 Normal LYMPH % 14.7 18.0000 - 48.300 0 % L Low MCH 31.5 27.0000 - 31.200 0 pg H High MCHC 31.6 31.8000 - 35.400 0 g/dL L Low MCV 99.9 81.1000 - 96.000 0 fL H High MONO # 0.459 0.2400 - 0.7900 x10 Normal MONO % 4.94 4.4000 - 12.7000 % Normal MPV 7.59 6.9000 - 10.6000 fL Normal NEUT # 7.3 1.6300 - 6.9600 x10 H High NEUT % 78.7 39.3000 - 73.700 0 % H High PLT 616 287.0016 - 366.0000 x10 H High RBC 4.61 3.60 - 4.69 x10 Normal RDW 13.2 11.5000 - 14.500 0 % Normal WBC 9.28 3.7000 - 10.1000 x10 Normal Comprehensive Metabolic Pane l (CMP) Reviewed date:06/04/2024 10:28:53 AM Interpretation: Performing Lab: Notes/Report: Globulin 2.5 1.5000 - 4.5000 g/dL Normal Alanine Aminotransferase (ALT/SPGT) 13 0.0000 - 55.0000 U/L Normal Albumin 4.2 3.4 - 4.8 g/dL Normal Albumin/Globulin Ratio 1.68 In determinate Alkaline Phosphate 103 40.0 - 150.0 U/L Normal Anion Gap 13 7.0000 - 15.0000 Normal Aspartate Aminotransferase (AST/SGOT) 13 5.0000 - 34.0000 U/L Normal Bilirubin, Total 0.3 0.2000 - 1.2000 mg/dL Normal BUN/Creatinine Ratio 22.8571 Inde terminate Calcium 9.8 8.4000 - 10.2000 mg/dL Normal Chloride 107 98.0000 - 107.00 00 mmol/L Normal CO2 26 22.0000 - 31.000 0 mmol/L Normal Creatinine 0.7 0.6000 - 1.2000 mg/dL Normal Glucose 120 70.0000 - 100.00 00 mg/dL H High eGFR 95.9776 0.0000 - 59.0000 mL/min/1.73m H High Potassium (K) 4.3 3.5000 - 5.1000 mmol/L Normal Protein, Total 6.7 6.4000 - 8.3000 g/dL Normal Sodium (Na) 733 440.4943 - 145.0000 mmol/L H High Urea (BUN) 16 7.0000 - 21.0000 mg/dL Normal Treponema pallidum by TP-PA Reviewed date:09/10/2024 08:53:26 AM Interpretation: Performing Lab: Notes/Report: TP-PA REACTIVE NON REACTIVE A A Reactive treponemal test indicates past or present infection and usually remains reactive for life. Result analyzed by Manual Methods Reason For Referral No Information Medications Medication SIG (Take, Route, Frequency, Duration) Notes Start Date End Date Status Mirtazapine 15 MG Tablet 1 tablet at bedtime Orally Once a day; Duration: 30 days deliver to [facility] 09/04/2024 Active Levothyroxine Sodium 100 MCG Capsule 1 tablet in the morning on an empty stomach Orally Once a day; Duration: 30 days deliver to [facility] Active MiraLax 17 GM/SCOOP Powder 1 scoop mixed with 8 ounces of fluid Orally Once a day Not-Taking Esomeprazole Magnesium 40 MG Capsule Delayed Release 1 capsule 1/2 to 1 hour before morning meal Orally Once a day; Duration: 30 days deliver to [facility] Active Albuterol Sulfate HFA 108 (90 Base) MCG/ACT Aerosol Solution 1 puff as needed Inhalation every 4 hrs; Duration: 30 days deliver to [place] 09/04/2024 Active Keppra 500 MG Tablet 1 tablet Orally every 12 hrs; Duration: 30 days deliver to [facility] 09/03/2024 Active QUEtiapine Fumarate 100 MG Tablet 1 tablet Orally At bedtime; Duration: 30 days deliver to [facility] 10/29/2024 Active Social History Tobacco Use: Social History Observation Description Date Details (start date - stop date) Current Smoker 05/24/1972 - NA Sex Assigned At : Social History Observation Description Sex Assigned At Female Social History Tobacco Use: Social Info Question Answer Notes Tobacco Control (Standard) Tobacco use: Current smoker When did you start smoking? 05/24/1972 How often do you smoke cigarettes? Every day How many cigarettes a day do you smoke? 5 or less How soon after you wake up do you smoke your first cigarette? 31-60 minutes Are you interested in quitting? Thinking about quitting Additional Findings: Tobacco user Light cigarett e smoker (1-9 cigs/day) Section Notes: none used none used none used none used none used none used none used none used none used none used none used Problems Problem Type SNOMED Code ICD Code Onset Dates Problem Status W/U Status Risk Notes Problem Hypothyroidism (61076426) Hypothyroidism, unspecified (E03.9) Active confirmed Problem Uncomplicated asthma (disorder) (703389348) Unspecified asthma, uncomplicated (J45.909) Active confirmed Problem Chronic insomnia (167777334) Chronic insomnia (F51.04) Active confirmed Problem Seizure disorder (358493007) Seizure disorder (G40.909) Active confirmed Problem Mild intermittent asthma (272210742) Mild intermittent asthma without complication (J45.20) Active confirmed Problem Cocaine dependence (75767376) Cocaine use disorder, severe, dependence (F14.20) Active confirmed Problem Arthritis (3549249) Arthritis (M19.90) Active confirmed Problem 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) Active confirmed Problem Gastroesophageal reflux disease (125516543) GERD without esophagitis (K21.9) Active confirmed Problem Chronic obstructive lung disease (64248993) COPD without exacerbation (J44.9) Active confirmed Vital Signs Heart Rate 77 /min 11/19/2024 Temperature 97.4 degrees Fahrenheit 11/19/2024 Respiratory Rate 16 /min 11/19/2024 Height-cm 152.4 cm 11/19/2024 Oximetry 93 % 11/19/2024 Blood pressure diastolic 81 mm Hg 11/19/2024 Weight-kg 58.6 kg 11/13/2024 Height 60 in 11/19/2024 Blood pressure systolic 136 mm Hg 11/19/2024 Weight 129.2 lbs 11/13/2024 BMI 25.23 kg/m2 11/13/2024 Encounters Encounter Location Date Provider Diagnosis [place] [phone] 05/28/2024 Brooklynn Ceballos Cocaine use disorder , severe, dependence F14.20 ; Sedative hypnotic or anxiolytic dependence F13.20 ; Cannabis use, unspecified, in remission F12.91 ; High risk heterosexual behavior Z72.51 ; Unspecified asthma, uncomplicated J45.909 ; Insomnia, unspecified G47.00 ; Hypothyroidism, unspecified E03.9 and Seizures R56.9 [place] [phone] 06/07/2024 Collette Castle Other insomnia G47.0 9 and COPD exacerbation J44.1 [place] [address] [address] 09/03/2024 Brooklynn Ceballos Cocaine use disorder , severe, dependence F14.20 ; Sedative hypnotic or anxiolytic dependence F13.20 ; Chronic insomnia F51.04 ; Seizures R56.9 ; Arthritis M19.90 ; High risk heterosexual behavior Z72.51 ; GERD without esophagitis K21.9 ; Hypothyroidism, unspecified E03.9 ; Tuberculosis screening Z11.1 and Mild intermittent asthma without complication J45.20 [facility] [address] [place] [id number] 10/10/2024 Brooklynn Ceballos Cocaine use disorder , severe, dependence F14.20 ; Sedative hypnotic or anxiolytic dependence F13.20 ; Mild intermittent asthma without complication J45.20 ; GERD without esophagitis K21.9 ; Chronic insomnia F51.04 ; Hypothyroidism, unspecified E03.9 ; Arthritis M19.90 ; High risk heterosexual behavior Z72.51 and Seizure disorder G40.909 [facility] [address] [place] [id number] 10/10/2024 Brooklynn Ceballos Cocaine use disorder , severe, dependence F14.20 and Sedative hypnotic or anxiolytic dependence F13.20 [facility] [address] [id number] 10/14/2024 Collette Boldent Localized infection of subcutaneous tissue L08.9 [facility] [address] [place] [id number] 10/17/2024 Brooklynn Ceballos Muscle spasm M62.838 [facility] [address] [place] [id number] 10/23/2024 Dorie Espinoza Chronic insomnia F51 .04 [facility] [address] [id number] 10/29/2024 Brooklynn Ceballos Chronic insomnia F51 .04 [facility] [address] [address] 11/13/2024 Gabriela Wilp Abdominal discomfort R10.9 and Shortness of breath R06.02 [facility] [address] [address] 11/15/2024 Brooklynn Ceballos Benign lipomatous neoplasm of skin and subcutaneous tissue of trunk D17.1 [facility] [address] [id number] 11/19/2024 Brooklynn Ceballos Other nonspecific abnormal finding of lung field R91.8 [facility] [address] [address] 06/05/2024 Brooklynn Ceballos [facility] [address] [place] [id number] 10/14/2024 Collette Corrine Arthritis M19.90 and Seizure disorder G40.909 [facility] [address] [id number] 10/16/2024 Collette Corrine Seizure disorder G40.909 [facility] [address] [address] 10/21/2024 Collette Corrine Arthritis M19.90 and Seizure disorder G40.909 [facility] [address] [address] 10/30/2024 Brooklynn Ceballos Mild intermittent asthma without complication J45.20 [facility] [address] [address] 11/05/2024 Brooklynn Ceballos Muscle spasm M62.838 [facility] [address] [address] 11/07/2024 Brooklynn Ceballos Chronic insomnia F51 .04 ; GERD without esophagitis K21.9 and Hypothyroidism, unspecified E03.9 [facility] [address] [address] 11/12/2024 Brooklynn Ceballos GERD without esophagitis K21.9 Assessments Encounter Date Diagnosis (ICD Code) Assessment Notes Treatment Notes Treatment Clinical Notes Section Notes 05/28/2024 Cocaine use disorder, severe, dependence (ICD-10 - F14.20) 05/28/2024 Sedative hypnotic or anxiolytic dependence (ICD-10 - F13.20) 06/07/2024 Other insomnia (ICD-10 - G47.09) Discussed sleep hygiene. Increase seroquel to 50mg qHS. 06/07/2024 COPD exacerbation (ICD-10 - J44.1) Shared decision making used. Start Symbicort 160mcg 2 puffs BIDm, medrol dose pack and doxycyline 100mg BID x7 days. Discussed red flags and when to notify medical staff. 09/03/2024 Cocaine use disorder, severe, dependence (ICD-10 - F14.20) 09/03/2024 Sedative hypnotic or anxiolytic dependence (ICD-10 - F13.20) 10/10/2024 Cocaine use disorder, severe, dependence (ICD-10 - F14.20) 10/10/2024 Sedative hypnotic or anxiolytic dependence (ICD-10 - F13.20) 10/10/2024 Cocaine use disorder, severe, dependence (ICD-10 - F14.20) 10/14/2024 Arthritis (ICD-10 - M19.90) 10/14/2024 Localized infection of subcutaneous tissue (ICD-10 - L08.9) Going to treat as infective, discussed possible internal shingles are another differential. Start Augumentin 875mg BID x7 days. Questions answered, pt expressed understanding and agrees to POC. 10/16/2024 Seizure disorder (ICD-10 - G40.909) 10/17/2024 Muscle spasm (ICD-10 - M62.838) 10/21/2024 Arthritis (ICD-10 - M19.90) 10/23/2024 Chronic insomnia (ICD-10 - F51.04) 10/29/2024 Chronic insomnia (ICD-10 - F51.04) 10/30/2024 Mild intermittent asthma without complication (ICD-10 - J45.20) 11/05/2024 Muscle spasm (ICD-10 - M62.838) 11/12/2024 GERD without esophagitis (ICD-10 - K21.9) 11/13/2024 Shortness of breath (ICD-10 - R06.02) 11/13/2024 Abdominal discomfort (ICD-10 - R10.9) Advised that patient be taken back to [facility] by non emergent transportation for evaluation since she is stating that the RUQ mass is increasing in size and due to reports of pain and difficulty breathing. 11/15/2024 Benign lipomatous neoplasm of skin and subcutaneous tissue of trunk (ICD-10 - D17.1) 11/19/2024 Other nonspecific abnormal finding of lung field (ICD-10 - R91.8) 11/07/2024 Chronic insomnia (ICD-10 - F51.04) 11/07/2024 GERD without esophagitis (ICD-10 - K21.9) 10/10/2024 Mild intermittent asthma without complication (ICD-10 - J45.20) 10/21/2024 Seizure disorder (ICD-10 - G40.909) 10/10/2024 Sedative hypnotic or anxiolytic dependence (ICD-10 - F13.20) 10/14/2024 Seizure disorder (ICD-10 - G40.909) 05/28/2024 Cannabis use, unspecified, in remission (ICD-10 - F12.91) 09/03/2024 Chronic insomnia (ICD-10 - F51.04) 05/28/2024 High risk heterosexual behavior (ICD-10 - Z72.51) 10/10/2024 GERD without esophagitis (ICD-10 - K21.9) 09/03/2024 Seizures (ICD-10 - R56.9) 11/07/2024 Hypothyroidism, unspecified (ICD-10 - E03.9) 10/10/2024 Chronic insomnia (ICD-10 - F51.04) 05/28/2024 Unspecified asthma, uncomplicated (ICD-10 - J45.909) 09/03/2024 Arthritis (ICD-10 - M19.90) 09/03/2024 High risk heterosexual behavior (ICD-10 - Z72.51) 05/28/2024 Insomnia, unspecified (ICD-10 - G47.00) 10/10/2024 Hypothyroidism, unspecified (ICD-10 - E03.9) 10/10/2024 Arthritis (ICD-10 - M19.90) 05/28/2024 Hypothyroidism, unspecified (ICD-10 - E03.9) 09/03/2024 GERD without esophagitis (ICD-10 - K21.9) 09/03/2024 Hypothyroidism, unspecified (ICD-10 - E03.9) 05/28/2024 Seizures (ICD-10 - R56.9) 10/10/2024 High risk heterosexual behavior (ICD-10 - Z72.51) 09/03/2024 Tuberculosis screening (ICD-10 - Z11.1) 10/10/2024 Seizure disorder (ICD-10 - G40.909) 09/03/2024 Mild intermittent asthma without complication (ICD-10 - J45.20) 06/07/2024 Other Questions answered. Pt expressed understanding and agrees to POC. Plan Of Treatment Pending Test Test Name Order Date Chlamydia and Gonorrhea Panel 09/03/2024 T. vaginalis 09/03/2024 Insurance Providers Payer Name Payer Address Payer Phone Subscriber Number Group Number Insured Name Patient Relationship to Insured Coverage Start Date Coverage End Date [employer] Medicare Advantage [address] [place] [id number] Nava Stovall Self - patient is the insured 4 4 [employer]vantage [address] [place], [place] [phone] [id number] Nava Helton Self - patient is the insured 5 5 Medicare Part B [address] [address] [place] [address] [id number] Nava Helton Self - patient is the insured 5 [employer] [address] [address] [place], [place] [id number] Nava Helton Self - patient is the insured 7 Medical (General) History Medical History History ICD Code asthma - mild intermittent COPD without exacerbation J44.9 degenerative joint disease seizure disorder Arthritis 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
--- OUTSIDE RECORDS SUMMARY | 2025-03-10 12:14 | XMS_ITS | Clinical Summary ---
[facility] Organization [facility] Address [address] [place] [address] Care Team Providers Care Development Representative Name Role Phone Cristiane Burrows Primary Care Provider [phone] Allergies No known active allergies Medications albuterol sulfate HFA 108 (90 Base) MCG/ACT inhaler 06/03/2020 Act larry carBAMazepine (TEGretol) 200 MG tablet 07/13/2020 Active esomeprazole (nexIUM) 40 MG capsule Take 40 mg by mouth Every Morning Before Breakfast. Active Active Problems No known active problems Family History Medical History Relation Name Comments Lung cancer Father Esophageal cancer Mother Relation Name Status Comments Father Mother Social History Tobacco Use Types Packs/Day Years Used Date Smoking Tobacco: Every Day Cigarettes 0.5 30 Smokeless Tobacco: Never Alcohol Use Standard Drinks/Week Comments Never 0 (1 standard drink = 0.6 oz pur e alcohol) AUDIT-C Answer Date Recorded Q1: How often do you have a drink containing alc ohol? Never 08/17/2020 Average Number of Drinks Not on file 021 Frequency of Binge Drinking Not on file 07/25 Abuse Screen Answer Date Recorded Unsafe at Home or Work/School Not on file Feels Threatened by Someone? Not on file 03/2023 Does Anyone Keep You from Co ntacting Others or Doint Things Outside the Home? Not on file 05/01/2023 Physical Sign of Abuse Present Not on file 1 Housing Stability Answer Date Recorded Current Living Arrangements Not on file 03/2023 Potentially Unsafe Housing Conditions Not on sebastian e 05/01/2023 Family and Community Support Answer Wilber e Recorded Help with Day-to-Day Activities Not on file 05/01/2023 Lonely or Isolated Not on file 05/01/2023 Employment Answer Date Recorded Do you want help finding or keeping work or a bonny b? Not on file 05/01/2023 Disabilities Answer Date Recorded Concentrating, Remembering, or Making Decisions Difficulty Not on file 05/01/2023 Doing Errands Independently Difficulty Not on fi le 05/01/2023 Education Answer Date Recorded Help with school or training? Not on file Preferred Language Not on file 05/01/2023 Comments Unknown Sex and Gender Information Value Date Recorded Sex Assigned at Not on file Legal Sex Female 10:57 AM EDT Gender Identity Not on file Sexual Orientation Not on file Last Filed Vital Signs Vital Sign Reading Time Taken Comments Blood Pressure 126/76 08/17/2020 1:51 PM EST Pulse - - Temperature - - Respiratory Rate - - Oxygen Saturation - - Inhaled Oxygen Concentration - - Weight 50.8 kg (112 lb) 08/17/2020 1:51 PM EST Height 154.9 cm (5' 1 ) 08/17/2020 1:51 PM EST Body Mass Index 21.16 08/17/2020 1:51 PM EST Plan of Treatment Health Maintenance Due Date Last Done Comments DXA SCAN 1959 TDAP/TD VACCINES (1 - Tdap) 1978 MAMMOGRAM 1999 COLOGUARD 2004 COLON CANCER SCREENING 5 YEAR SIGMOIDOSCOPY 2004 COLONOSCOPY [address]CER SCREENING 2004 [address] COLONOGRAPHY 2004 FECAL OCCULT BLOOD TEST 2004 FIT Testing (1 year) 2004 Pneumococcal Vaccine 50+ (1 of 1 - PCV) 2009 ZOSTER VACCINE (1 of 2) 2009 ANNUAL PHYSICAL 08/17/2020 HEPATITIS C SCREENING 08/17/2020 COVID-19 Vaccine ( season) 2024 INFLUENZA VACCINE 04/23/2025 Insurance MEDICARE A & B [employer] MEDICAID [place] Care Teams Development Representative Relationship Specialty Start Date End Date Cristiane Burrows PA PCP - General Physician Transition Mgr Rn 08/10/20
[2025-03-10 12:55] VITALS: PULSE 57
[2025-03-10] MEDS: ALBUTEROL 0.083% 2.5 MG/3 ML NEB IH (12:55)
--- NOTE | 2025-03-10 13:47 | PC.NURSE ---
Patients blood pressure post 6MWT was elevated, pt stated that her grand daughter was waiting for her outside and she would keep an eye on it at home
== END 2025-03-10 23:59 | disposition home or self-care (01) ==
LOC: RT 12:12
PROVIDERS: PCP Internal Medicine Adolescent Medicine; Visit Provider Internal Medicine Pulmonary Disease
DX: J44.9 Chronic obstructive pulmonary disease, unspecified (principal); R94.2 Abnormal results of pulmonary function studies
CPT/HCPCS: 94060; 94618; 94640; 94726; 94729

== ENCOUNTER 2025-03-18 13:12 | Outpatient (CLI) | payer MEDICARE, MEDICAID, SELFPAY ==
--- OUTSIDE RECORDS SUMMARY | 2025-03-18 13:19 | XMS_ITS | Patient Health Record ---
Author Organization [facility] Address [address] [facility] [address] [place] [address] Care Team Providers Care Concert Singer Name Role Phone Brooklynn Ceballos Unavailable [phone] Brooklynn Ceballos Unavailable Unavailable Gabriela Pace Unavailable [phone] Collette Castle Unavailable [phone] Jessica Espinozayl Unavailable [phone] Allergies No Known Allergies Results Component Value Reference Range Flag Notes Rapid Plasma Reagin (RPR) wi th Titer Reviewed date:09/10/2024 08:15:05 AM Interpretation: Performing Lab: Notes/Report: RPR NONREACTIVE NONREACTIVE N Qualitative and quantitative nontreponemal test for the serologic detection of syphilis. Result analyzed by [employer] TITER N/R N Treponema pallidum by TP-PA Reviewed date:09/10/2024 08:53:26 AM Interpretation: Performing Lab: Notes/Report: TP-PA REACTIVE NON REACTIVE A A Reactive treponemal test indicates past or present infection and usually remains reactive for life. Result analyzed by [employer] Treponema pallidum by TP-PA Reviewed date:06/04/2024 10:26:43 AM Interpretation: Performing Lab: Notes/Report: TP-PA PREVIOUSLY REACTIVE NON REACTIVE A Result analyzed by Manual Methods Rapid Plasma Reagin (RPR) wi th Titer Reviewed date:06/04/2024 10:26:33 AM Interpretation: Performing Lab: Notes/Report: RPR NONREACTIVE NONREACTIVE N Qualitative and quantitative nontreponemal test for the serologic detection of syphilis. Result analyzed by Manual [employer] TITER N/R TSH with Reflex to Free T3 a nd Free T4 Reviewed date:09/10/2024 08:57:46 AM Interpretation: Performing Lab: Notes/Report: TSH (T3 and T4 Reflex) 3.9 0.35-4.94 uIU/ml N Normal Result analyzed by [facility] Syphilis with Reflex to RPR Titer and TP-PA Confirmation Reviewed date:09/10/2024 08:53:34 AM Interpretation: Performing Lab: Notes/Report: Syphilis REACTIVE Nonreactive QuantiFERON TB Reviewed date:09/11/2024 09:49:47 AM Interpretation: [...] Infection --- [place], 2010 (http://www.cdc.gov/m mwr/preview/mmwrhtml/ cx0257k0 .htm), for more information concerning test performance in low-prevalence populations and use in occupational screening. Mitogen >10.0 0.5000 <= IU/mL N Nil 0.395 N TB1-Antigen 0.416 N TB2-Antigen 0.415 N HIV Ag/Ab with Reflex to HIV -1 Quantitative NAAT Reviewed date:09/10/2024 08:53:40 AM Interpretation: Performing Lab: Notes/Report: HIV Ag/Ab (HIV-1 Qnt NAAT Reflex) NON REACTIVE NON REACTIVE N Result analyzed by [facility] Hepatitis C Antibody with Re flex Reviewed date:09/10/2024 08:53:47 AM Interpretation: Performing Lab: Notes/Report: Hepatitis C Antibody NON REACTIVE Nonreactive Hepatitis B Total Core Antib fredi Reviewed date:09/10/2024 08:54:15 AM Interpretation: Performing Lab: Notes/Report: Hepatitis B Total Core Antibody NON REACTIVE NON REACTIVE N Result analyzed by [facility] Hepatitis B Surface Antigen Reviewed date:09/10/2024 08:54:08 AM Interpretation: Performing Lab: Notes/Report: Hepatitis B Surface Antigen NON REACTIVE NON REACTIVE N Result analyzed by [facility] Hepatitis B Surface Antibody Reviewed date:09/10/2024 08:53:54 AM Interpretation: Performing Lab: Notes/Report: Hepatitis B Surface Antibody NON REACTIVE NON REACTIVE N Result analyzed by [facility] Hepatitis B Core IgM Antibod y Reviewed date:09/10/2024 08:54:21 AM Interpretation: Performing Lab: Notes/Report: Hepatitis B Core IgM Antibody NON REACTIVE NON REACTIVE N Result analyzed by [employer] CBC with Diff Reviewed date:09/10/2024 08:56:50 AM [...] N Urea (BUN) 14 7-21 mg/dL N TSH with Reflex to Free T3 [...] - 73.700 0 % H High PLT 678 463.0907 - 366.0000 x10 H High RBC 4.61 [...] 6.4000 - 8.3000 g/dL Normal Sodium (Na) 754 809.8839 - 145.0000 mmol/L H High Urea (BUN) 16 7.0000 - 21.0000 mg/dL Normal Reason For Referral No Information Medications Medication [...] a day; Duration: 30 days deliver to [facility] Active Albuterol Sulfate HFA 108 (90 Base) MCG/ACT Aerosol Solution 1 puff as needed Inhalation every 4 hrs; Duration: 30 days deliver to [facility] 09/04/2024 Active Keppra 500 MG Tablet 1 tablet Orally every 12 hrs; Duration: 30 days deliver to [facility] 09/03/2024 Active QUEtiapine Fumarate 100 MG Tablet 1 tablet Orally At bedtime; Duration: 30 days deliver to [facility] 10/29/2024 Active Social History Tobacco Use: Social [...] Status W/U Status Risk Notes Problem Hypothyroidism (75184017) Hypothyroidism, unspecified (E03.9) Active confirmed Problem Uncomplicated asthma (disorder) (653064384) Unspecified asthma, uncomplicated (J45.909) Active confirmed Problem Chronic insomnia (244272866) Chronic insomnia (F51.04) Active confirmed Problem Seizure disorder (212777641) Seizure disorder (G40.909) Active confirmed Problem Mild intermittent asthma (195029406) Mild intermittent asthma without complication (J45.20) Active confirmed Problem Cocaine dependence (67995439) Cocaine use disorder, severe, dependence (F14.20) Active confirmed Problem Arthritis (0555617) Arthritis (M19.90) Active confirmed Problem 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) Active confirmed Problem Gastroesophageal reflux disease (161664825) GERD without esophagitis (K21.9) Active confirmed Problem Chronic obstructive lung disease (52448642) COPD without exacerbation (J44.9) Active confirmed Vital [...] 11/13/2024 Encounters Encounter Location Date Provider Diagnosis [place] [id number] 05/28/2024 Brooklynn Ceballos Cocaine use disorder , severe, dependence F14.20 ; Sedative hypnotic or anxiolytic dependence F13.20 ; Cannabis use, unspecified, in remission F12.91 ; High risk heterosexual behavior Z72.51 ; Unspecified asthma, uncomplicated J45.909 ; Insomnia, unspecified G47.00 ; Hypothyroidism, unspecified E03.9 and Seizures R56.9 [place] [id number] 06/07/2024 Collette Castle Other insomnia G47.0 9 and COPD exacerbation J44.1 [place] [address] [address] 09/03/2024 Brooklynn Ceballos Cocaine use disorder , severe, dependence F14.20 ; Sedative hypnotic or anxiolytic dependence F13.20 ; Chronic insomnia F51.04 ; Seizures R56.9 ; Arthritis M19.90 ; High risk heterosexual behavior Z72.51 ; GERD without esophagitis K21.9 ; Hypothyroidism, unspecified E03.9 ; Tuberculosis screening Z11.1 and Mild intermittent asthma without complication J45.20 [facility] [address] [place] [address] 10/10/2024 Brooklynn Ceballos Cocaine use disorder , severe, dependence F14.20 ; Sedative hypnotic or anxiolytic dependence F13.20 ; Mild intermittent asthma without complication J45.20 ; GERD without esophagitis K21.9 ; Chronic insomnia F51.04 ; Hypothyroidism, unspecified E03.9 ; Arthritis M19.90 ; High risk heterosexual behavior Z72.51 and Seizure disorder G40.909 [facility] [address] [place] [address] 10/10/2024 Brooklynn Ceballos Cocaine use disorder , severe, dependence F14.20 and Sedative hypnotic or anxiolytic dependence F13.20 [facility] [address] [place] [address] 10/14/2024 Collette Boldent Localized infection of subcutaneous tissue L08.9 [facility] [address] [place] [address] 10/17/2024 Brooklynn Ceballos Muscle spasm M62.838 [facility] [address] [address] 10/23/2024 Dorie Espinoza Chronic insomnia F51 .04 [facility] [address] [address] 10/29/2024 Brooklynn Ceballos Chronic insomnia F51 .04 [facility] [address] [address] 11/13/2024 Gabriela Wilp Abdominal discomfort R10.9 and Shortness of breath R06.02 [facility] [address] [address] 11/15/2024 Brooklynn Ceballos Benign lipomatous neoplasm of skin and subcutaneous tissue of trunk D17.1 [facility] [address] [phone] 11/19/2024 Brooklynn Ceballos Other nonspecific abnormal finding of lung field R91.8 [facility] [address] [address] 06/05/2024 Brooklynn Ceballos [facility] [address] [address] 10/14/2024 Collette Corrine Arthritis M19.90 and Seizure disorder G40.909 [facility] [address] [address] 10/16/2024 Collette Corrine Seizure disorder G40.909 [facility] [address] [address] 10/21/2024 Collette Corrine Arthritis M19.90 and Seizure disorder G40.909 [facility] [address] [address] 10/30/2024 Brooklynn Ceballos Mild intermittent asthma without complication J45.20 [facility] [address] [address] 11/05/2024 Brooklynn Ceballos Muscle spasm M62.838 [facility] [address] [address] 11/07/2024 Brooklynn Ceballos Chronic insomnia F51 .04 ; GERD without esophagitis K21.9 and Hypothyroidism, unspecified E03.9 [facility] [address] [address] 11/12/2024 Brooklynn Ceballos GERD without esophagitis K21.9 [...] Advised that patient be taken back to [facility] by non emergent transportation for evaluation [...] End Date [employer] Medicare Advantage [address] CHENCHO Hatch [id number] Nava Stovall Self - patient is the insured [address] [employer] Medicare Advantage [address] [place], [place] [id number] Nava Helton Self - patient is the insured 5 5 Medicare Part B [address] [address] [place] [address] [id number] Nava Helton Self - patient is the insured 5 [employer] Medicaid [address] [address] [place], [place] [id number] Nava Helton Self - patient is the [...]
--- OUTSIDE RECORDS SUMMARY | 2025-03-18 13:19 | XMS_ITS | Clinical Summary ---
Author Organization [facility] Address [address] [place] [address] Phone Care Team Providers Care Customer Service Administrator Name Role Phone Arleen Ellison MD Primary Care Physician [ ] Conditions or Problems Problem Name Problem Code Onset Date Status Entry Date Provider Comment Standard Description Annotate ARTHRITIS, HAND 022613224 (SNOMED CT) 09/28 Active 09/28 Arleen Ellison MD Arthritis of hand INSOMNIA NEC 246770351 (SNOMED CT) 09/28 Active 09/28 Arleen Ellison MD Insomnia TOBACCO USE DIS F17.200 (ICD-10-CM) 08/17 Active 08/17 Arleen Ellison MD Nicotine dependence, unspecified, uncomplicated BRONCHITIS ACUTE 94169675 (SNOMED CT) 08/17 Inactive 08/17 Arleen Ellison MD Acute bronchitis Medications Medication Instructions Start Date Stop Date Generic Name [facility] Provider TRAZODONE HCL 50 MG TABS 1BY MOUTH EVERY NIGHT TRAZODONE HCL [id number] Arleen Ellison MD ETODOLAC 400 MG TABS 1 BY MOUTH TWO TIMES A DAY ETODOLAC [id number] Arleen Ellison MD PROAIR HFA 108 (90 Base) MCG/ACT INHALATION AEROSOL SOLUTION [id number] ALBUTEROL SULFATE [id number] Arleen Ellison MD MUCINEX 600 MG [id number] 2pobid GUAIFENESIN 55335928120 Arleen Ellison MD AZITHROMYCIN 250 MG TABS 2po x1d [id number] AZITHROMYCIN [id number] Arleen Ellison MD Medications Administered No information [...]
--- OUTSIDE RECORDS SUMMARY | 2025-03-18 13:19 | XMS_ITS | Encounter Summary ---
Author Organization Healthcare Address [address] [place] [address] Care Team Providers Care Furniture Restorer Name Role Phone Jesus Levi MD Primary Care Provider [phone] Reason for Referral * Consultation (Routine) - Closed Specialty Diagnoses / Procedures Referred By Cristina chaidez Referred To Contact Plastic Surgery Diagnoses Multiple lipomas Silas aBires MD [address] [facility] [address] [place] [id number] Phone: tel: fax: Referral ID Status Reason Start Date Expiration Date V isits Requested Visits Authorized [id number] Closed Specialty Services Required 11/22/2024 05/24/2026 1 1 Encounter Details Date Type Department Care Team (Late Contact Info) Description 11/22/2024 [facility] [address] [place] [address] Silas Baires MD [address] [facility] [address] [address] Multiple lipomas (Primary Dx) Social History Tobacco [...] 10:30 AM EDT Office Visit [facility] Plastic & Reconstructive Surgery [address] [place] [address] Zelalem South MD [address] [facility] [address] [place] [address] Scheduled Referrals Name Type Priority Associated Diagnoses Order Schedule Ambulatory Referral to Plastic Surgery Outpatient Referral Routine Multiple lipomas Ordered: 11/22/2024 documented as of this encounter Visit Diagnoses Diagnosis Multiple lipomas- Primary documented in this encounter Care Teams Furniture Restorer Relationship Specialty Start Date End Date Jesus Levi MD [address] [phone] PCP - General 12/04/20 documented as of this encounter
--- OUTSIDE RECORDS SUMMARY | 2025-03-18 13:19 | XMS_ITS | Clinical Summary ---
Author Organization [facility] Address [address] [place] [address] Care Team Providers Care Tour Manager Name Role Phone Jesus Levi MD Primary Care Provider [phone] Allergies No known active allergies Medications albuterol [...] Team Description 01/03/2025 9:30 AM EDT Consult [facility] Plastic & Reconstructive Surgery [address] [place] [phone] Zelalem South MD Soft tissue mass (Primary [...] Description 01/16/2026 10:30 AM EDT Office Visit [facility] Plastic & Reconstructive Surgery [address] [place] [address] Zelalem South MD [address] [place] [phone] Health Maintenance Due Date Last Done Comments [...] - Risk 60-74 years 1-dose series) 2019 [id number] Vaccine ( season) 2024 12/31/2021, 06/09/2021, 11/04/2020, Additional history exists [facility]-Influenza Vaccine (#1) 2025 05/07/2024, [facility]-Cervical Cancer Screening Discontinued [facility]-Pap Smear Discontinued 07/09/2007 [facility]-Pneumococcal Vaccine: 50+ Years Completed 05/07/2024, 07/24/2013 HPV Vaccines Aged Out No longer eligi ble based on patient's age to complete this topic [facility]-HIB Vaccines Aged Out No longer e ligible based on patient's age to complete this topic [facility]-HPV/Cotest Discontinued [facility]-Hepatitis A Vaccines Aged Out No longer eligible based on patient's age to complete this topic [facility]-IPV Vaccines Aged Out No longer e ligible based on patient's age to complete this topic [facility]-Rotavirus Vaccines Aged Out No lo nger eligible based on patient's age to complete this topic Insurance [facility] MED[place] Member Subscriber Plan / Payer (Ef fective 2020-Present) Name:Nava Helton Relation to Subscriber:Self Name:Nava Helton Payer ID:[id number] (NAIC) Group ID:Not on file Type:Medicaid Address: [address] MEDICARE [facility] MEDICAID Care Teams Tour Manager Relationship Specialty Start Date End Date Jesus Levi MD [address] [place], [place] [phone] PCP - General 12/04/20
--- OUTSIDE RECORDS SUMMARY | 2025-03-18 13:20 | XMS_ITS | Clinical Summary ---
[facility] Address [address] [place] [address] Care Team Providers Care Water Ski Assembler Name Role Phone Cristiane Burrows Primary Care Provider Allergies No known active allergies Medications albuterol [...] & B [employer] MEDICAID [place] Care Teams Water Ski Assembler Relationship Specialty Start Date End Date Cristiane Burrows PA PCP - General Physician Retail Marketing Manager 08/10/20
--- NOTE | 2025-03-18 13:30 | CT_ITS ---
FINAL REPORT TECHNIQUE: Thin section axial images were obtained from the lung apices through the upper abdomen without contrast. This study was performed with techniques to keep radiation doses as low as reasonably achievable (ALARA). Individualized dose reduction techniques using automated exposure control or adjustment of mA and/or kV according to the patient's size were employed. CLINICAL HISTORY: nodule COMPARISON: 12/13/2024 FINDINGS: There are stable mildly enlarged right axillary lymph nodes. There is no mediastinal or hilar lymphadenopathy. No pleural or pericardial effusion. There are changes of emphysema. Bilateral pleural scarring is similar to prior. Left upper lobe nodule measures 10 mm, previously measured 10 mm. Finding is well-seen on series 3, image 90. Subpleural left upper lobe nodule that was new on previous exam has resolved. There is evidence of old granulomatous disease. Limited images of the upper abdomen reveal a stable hypodense lesion in the right lobe of the liver, favor a cyst. There is no acute osseous abnormality. IMPRESSION: Interval resolution in the peripheral, previously identified new left upper lobe nodular opacity. Left upper lobe nodule stable since previous exam. Reviewed, Interpreted and Dictated by Ariana Sharp MD Transcribed by Emily Lynch Authenticated and . [facility]
== END 2025-03-18 23:59 | disposition home or self-care (01) ==
LOC: RAD 13:12
PROVIDERS: PCP Internal Medicine Adolescent Medicine; Visit Provider Internal Medicine Pulmonary Disease
DX: R91.1 Solitary pulmonary nodule (principal)
CPT/HCPCS: 71250

== ENCOUNTER 2025-03-31 12:47 | Outpatient (CLI) | payer MEDICARE, MEDICAID, SELFPAY ==
--- OUTSIDE RECORDS SUMMARY | 2025-03-31 12:51 | XMS_ITS | Clinical Summary ---
Author Organization [facility] Address [address] [place] [address] Phone Care Team Providers Care Wwe Wrestler Name Role Phone Arleen Ellison MD Primary Care Physician [ ] Conditions or Problems Problem Name Problem Code Onset Date Status Entry Date Provider Comment Standard Description Annotate ARTHRITIS, HAND 394823501 (SNOMED CT) 09/28 Active 09/28 Arleen Ellison MD Arthritis of hand INSOMNIA NEC 001738783 (SNOMED CT) 09/28 Active 09/28 Arleen Ellison MD Insomnia TOBACCO USE DIS F17.200 (ICD-10-CM) 08/17 Active 08/17 Arleen Ellison MD Nicotine dependence, unspecified, uncomplicated BRONCHITIS ACUTE 65948776 (SNOMED CT) 08/17 Inactive 08/17 Arleen Ellison MD Acute bronchitis Medications Medication Instructions Start Date Stop Date Generic Name [facility] Provider TRAZODONE HCL 50 MG TABS 1BY MOUTH EVERY NIGHT TRAZODONE HCL [id number] Arleen Ellison MD ETODOLAC 400 MG TABS 1 BY MOUTH TWO TIMES A DAY ETODOLAC [id number] Arleen Ellison MD PROAIR HFA 108 (90 Base) MCG/ACT INHALATION AEROSOL SOLUTION [id number] ALBUTEROL SULFATE 00820833524 Arleen Ellison MD MUCINEX 600 MG [id number] 2pobid GUAIFENESIN 22065456459 Arleen Ellison MD AZITHROMYCIN 250 MG TABS 2po x1d [id number] AZITHROMYCIN [id number] Arleen Ellison MD Medications Administered No information available. Allergies, Adverse Reactions, Alerts Allergy Name Reaction Description Start Date Severity Statu s Provider CODEINE Critical Active rAleen nova MD Results No information available. Plan [...]
--- OUTSIDE RECORDS SUMMARY | 2025-03-31 12:52 | XMS_ITS | Patient Health Record ---
Author Organization [facility] Address [address] [facility] [address] [place] [address] Care Team Providers Care Corrections Specialist Name Role Phone Brooklynn Ceballos Unavailable [phone] Brooklynn Ceballos Unavailable Unavailable Gabriela Pace Unavailable [phone] Collette Castle Unavailable [phone] Alexis, MRS. Oshea Unavailable [phone] Allergies No Known Allergies Results Component Value [...] 0.35-4.94 uIU/ml N Normal Result analyzed by [employer] QuantiFERON TB Reviewed date:09/11/2024 09:49:47 AM Interpretation: [...] Infection --- [place], 2010 (http://www.cdc.gov/m mwr/preview/mmwrhtml/ or8605k2 .htm), for more information concerning test performance in low-prevalence populations and use in occupational screening. Mitogen >10.0 0.5000 <= IU/mL N Nil 0.395 N TB1-Antigen 0.416 N TB2-Antigen 0.415 N Hepatitis B Total Core Antib fredi Reviewed date:09/10/2024 08:54:15 AM Interpretation: Performing Lab: Notes/Report: Hepatitis B Total Core Antibody NON REACTIVE NON REACTIVE N Result analyzed by [employer] Hepatitis B Core IgM Antibod y Reviewed date:09/10/2024 08:54:21 AM Interpretation: Performing Lab: Notes/Report: Hepatitis B Core IgM Antibody NON REACTIVE NON REACTIVE N Result analyzed by [employer] CBC with Diff Reviewed date:09/10/2024 08:56:50 AM [...] N Urea (BUN) 14 7-21 mg/dL N T. vaginalis Reviewed date:06/04/2024 10:31:15 AM Interpretation: Performing Lab: Notes/Report: Trichomonas vaginalis Detected Not Detected A Hepatitis B Core IgM Antibod y Reviewed date:06/04/2024 10:29:00 AM Interpretation: Performing Lab: Notes/Report: Hepatitis B Core IgM Antibody Nonreactive Nonreactive Comprehensive Metabolic Pane l (CMP) Reviewed date:06/04/2024 [...] 6.4000 - 8.3000 g/dL Normal Sodium (Na) 568 807.5909 - 145.0000 mmol/L H High Urea (BUN) 16 7.0000 - 21.0000 mg/dL Normal Syphilis with Reflex to RPR Titer and TP-PA Confirmation Reviewed date:09/10/2024 08:53:34 AM Interpretation: Performing Lab: Notes/Report: Syphilis REACTIVE Nonreactive HIV Ag/Ab with Reflex to HIV -1 Quantitative NAAT Reviewed date:09/10/2024 08:53:40 AM Interpretation: Performing Lab: Notes/Report: HIV Ag/Ab (HIV-1 Qnt NAAT Reflex) NON REACTIVE NON REACTIVE N Result analyzed by [employer] Hepatitis C Antibody with Re flex Reviewed date:09/10/2024 08:53:47 AM Interpretation: Performing Lab: Notes/Report: Hepatitis C Antibody NON REACTIVE Nonreactive Hepatitis B Surface Antigen Reviewed date:09/10/2024 08:54:08 AM Interpretation: Performing Lab: Notes/Report: Hepatitis B Surface Antigen NON REACTIVE NON REACTIVE N Result analyzed by [employer] Hepatitis B Surface Antibody Reviewed date:09/10/2024 08:53:54 AM Interpretation: Performing Lab: Notes/Report: Hepatitis B Surface Antibody NON REACTIVE NON REACTIVE N Result analyzed by [facility] TSH with Reflex to Free T3 a nd Free T4 Reviewed date:06/04/2024 10:28:23 AM Interpretation: Performing Lab: Notes/Report: TSH (T3 and T4 Reflex) 1.7444 0.3500 - 4.9400 ?IU/mL Normal Syphilis with Reflex to RPR Titer and [...] Notes/Report: Hepatitis B Surface Antibody Nonreactive - Chlamydia and Gonorrhea Pane l Reviewed date:06/04/2024 [...] - 73.700 0 % H High PLT 863 095.9593 - 366.0000 x10 H High RBC 4.61 3.60 - 4.69 x10 Normal RDW 13.2 11.5000 - 14.500 0 % Normal WBC 9.28 3.7000 - 10.1000 x10 Normal Treponema pallidum by TP-PA Reviewed date:09/10/2024 [...] Result analyzed by Manual Methods TITER N/R Reason For Referral No Information Medications Medication [...] a day; Duration: 30 days deliver to [place] Active Albuterol Sulfate HFA 108 (90 Base) MCG/ACT Aerosol Solution 1 puff as needed Inhalation every 4 hrs; Duration: 30 days deliver to [place] 09/04/2024 Active Keppra 500 MG Tablet 1 tablet Orally every 12 hrs; Duration: 30 days deliver to [place] 09/03/2024 Active QUEtiapine Fumarate 100 MG Tablet 1 tablet Orally At bedtime; Duration: 30 days deliver to [place] 10/29/2024 Active Social History Tobacco Use: Social [...] Status W/U Status Risk Notes Problem Hypothyroidism (43298528) Hypothyroidism, unspecified (E03.9) Active confirmed Problem Uncomplicated asthma (disorder) (780615114) Unspecified asthma, uncomplicated (J45.909) Active confirmed Problem Chronic insomnia (843379074) Chronic insomnia (F51.04) Active confirmed Problem Seizure disorder (886030116) Seizure disorder (G40.909) Active confirmed Problem Mild intermittent asthma (040921483) Mild intermittent asthma without complication (J45.20) Active confirmed Problem Cocaine dependence (85197544) Cocaine use disorder, severe, dependence (F14.20) Active confirmed Problem Arthritis (0148701) Arthritis (M19.90) Active confirmed Problem 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) Active confirmed Problem Gastroesophageal reflux disease (310147875) GERD without esophagitis (K21.9) Active confirmed Problem Chronic obstructive lung disease (53328306) COPD without exacerbation (J44.9) Active confirmed Vital [...] 11/13/2024 Encounters Encounter Location Date Provider Diagnosis [place] [phone] 05/28/2024 Brooklynn Ceballos Cocaine use disorder , severe, dependence F14.20 ; Sedative hypnotic or anxiolytic dependence F13.20 ; Cannabis use, unspecified, in remission F12.91 ; High risk heterosexual behavior Z72.51 ; Unspecified asthma, uncomplicated J45.909 ; Insomnia, unspecified G47.00 ; Hypothyroidism, unspecified E03.9 and Seizures R56.9 [place] [id number] 06/07/2024 Collette Castle Other insomnia G47.0 9 and COPD exacerbation J44.[address] [address] 09/03/2024 Brooklynn Ceballos Cocaine use disorder , severe, dependence F14.20 ; Sedative hypnotic or anxiolytic dependence F13.20 ; Chronic insomnia F51.04 ; Seizures R56.9 ; Arthritis M19.90 ; High risk heterosexual behavior Z72.51 ; GERD without esophagitis K21.9 ; Hypothyroidism, unspecified E03.9 ; Tuberculosis screening Z11.1 and Mild intermittent asthma without complication J45.20 [facility] [address] [place] [phone] 10/10/2024 Brooklynn Ceballos Cocaine use disorder , severe, dependence F14.20 ; Sedative hypnotic or anxiolytic dependence F13.20 ; Mild intermittent asthma without complication J45.20 ; GERD without esophagitis K21.9 ; Chronic insomnia F51.04 ; Hypothyroidism, unspecified E03.9 ; Arthritis M19.90 ; High risk heterosexual behavior Z72.51 and Seizure disorder G40.909 [facility] [address] [place] [id number] 10/10/2024 Brooklynn Ceballos Cocaine use disorder , severe, dependence F14.20 and Sedative hypnotic or anxiolytic dependence F13.20 [facility] [address] [place] [phone] 10/14/2024 Collette Castle Localized infection of subcutaneous tissue L08.9 [facility] [address] [place] [id number] 10/17/2024 Brooklynn Ceballos Muscle spasm M62.838 [facility] [address] [place] [id number] 10/23/2024 Dorie Espinoza Chronic insomnia F51 .04 [facility] [address] [id number] 10/29/2024 Brooklynn Ceballos Chronic insomnia F51 .04 [facility] [address] [address] 11/13/2024 Gabriela Wilp Abdominal discomfort R10.9 and Shortness of breath R06.02 [facility] [address] [address] 11/15/2024 Brooklynn Ceballos Benign lipomatous neoplasm of skin and subcutaneous tissue of trunk D17.1 [facility] [address] [phone] 11/19/2024 Brooklynn Ceballos Other nonspecific abnormal finding of lung field R91.8 [facility] [address] [address] 06/05/2024 Brooklynn Ceballos [facility] [address] [id number] 10/14/2024 Collette Castle Arthritis M19.90 and Seizure disorder G40.909 [facility] [address] [address] 10/16/2024 Collette Castle Seizure disorder G40.909 [facility] [address] [facility] [address] [place] [address] 10/21/2024 Collette Boldent Arthritis M19.90 and Seizure disorder G40.909 [facility] [address] [address] 10/30/2024 Brooklynn Ceballos Mild intermittent asthma without complication J45.20 [facility] [address] [address] 11/05/2024 Brooklynn Ceballos Muscle spasm M62.838 [facility] [address] [address] 11/07/2024 Brooklynn Ceballos Chronic insomnia F51 .04 ; GERD without esophagitis K21.9 and Hypothyroidism, unspecified E03.9 [facility] [address] [address] 11/12/2024 Brooklynn Ceballos GERD without esophagitis K21.9 [...] Advised that patient be taken back to [facility] by non emergent transportation for evaluation [...] End Date [employer] Medicare Advantage [address] [place], [place] [id number] Nava Stovall Self - patient is the insured 4 4 [employer] Medicare Advantage [address] [place], [place] [id number] Nava Helton Self - patient is the insured 5 5 Medicare Part B [address] [address] [place] [address] [id number] Nava Helton Self - patient is the insured 5 [employer] Medicaid [address] [address] [place], [place] [id number] Nava Helton Self - patient is the [...] hysterectomy 30 years ago left arm fx 2019 two c sections cages in spine around neck 2021 Hospitalization History Reason Date(Month/Year) see surgery list
--- OUTSIDE RECORDS SUMMARY | 2025-03-31 12:52 | XMS_ITS | Clinical Summary ---
Author Organization [facility] Address [address] [place] [address] Care Team Providers Care Exchange Specialist Name Role Phone Cristiane Burrows Primary Care Provider [phone] Allergies No known active allergies Medications albuterol [...] C SCREENING 08/17/2020 COVID-19 Vaccine ( season) 2025 INFLUENZA VACCINE 04/23/2025 Insurance MEDICARE A & B [employer] MEDICAID [place] Care Teams Exchange Specialist Relationship Specialty Start Date End Date Cristiane Burrows PA PCP - General Physician Water Purifier Operator 08/10/20
--- OUTSIDE RECORDS SUMMARY | 2025-03-31 12:52 | XMS_ITS | Clinical Summary ---
Author Organization [facility] Address [address] [place] [address] Care Team Providers Care Cap Machine Operator Name Role Phone Jesus Levi MD Primary Care Provider [phone] Allergies No known active allergies Medications albuterol [...] at the same time. 5 03/07/20 25 Active Problems Problem Noted Date Diagnosed Date Soft tissue mass 01/03/2025 Encounters Date Type Department Care Team Description 01/03/2025 9:30 AM EDT Consult [facility] Plastic & Reconstructive Surgery [address] [place] [address] Zelalem South MD Soft tissue mass (Primary Dx) 01/03/2025 Travel from Last 3 Months Immunizations Immunization Administration Dates Next Due Influenza, seasonal, injectable 07/24/2013 Pneumococcal Polysaccharide PPV23 07/24/2013 Family History Medical History Relation Name Comments Lung cancer Father Esophageal cancer Mother Lymphoma Mother Relation Name Status Comments Father Mother Social History Tobacco Use Types Packs/Day Years Used Date Smoking Tobacco: Former Cigarettes 1 41.7 S tarted: 1984 Smokeless Tobacco: Never Comments Unknown Sex and [...] Description 01/16/2026 10:30 AM EDT Office Visit [facility] Plastic & Reconstructive Surgery [address] [place] [address] Zelalem South MD [address] [place] [phone] Health Maintenance Due Date Last Done Comments [...] - Risk 60-74 years 1-dose series) 2019 [id number] Vaccine ( season) 2025 12/31/2021, 06/09/2021, 11/04/2020, Additional history exists UKY-Influenza [...] patient's age to complete this topic Insurance [facility] [employer] MEDICAID Member Subscriber Plan / Payer (Ef fective 2020-Present) Name:Nava Helton Relation to Subscriber:Self Name:Nava Helton Payer ID:[id number] (NAIC) Group ID:Not on file Type:Medicaid Address: [place] [id number] [employer] MEDICARE MEDICAID Care Teams Cap Machine Operator Relationship Specialty Start Date End Date Jesus Levi MD [address] [place] [id number] PCP - General 12/04/20
--- OUTSIDE RECORDS SUMMARY | 2025-03-31 12:52 | XMS_ITS | Encounter Summary ---
Author Organization [facility] Address [address] [place] [address] Care Team Providers Care Drum Plater Name Role Phone Jesus Levi MD Primary Care Provider [phone] Reason for Referral * Consultation (Routine) - Closed Specialty Diagnoses / Procedures Referred By Cristina chaidez Referred To Contact Plastic Surgery Diagnoses Multiple lipomas Silas Baires MD [address] [facility] [address] [place] [id number] Phone: tel: fax: Referral ID Status Reason Start Date Expiration Date V isits Requested Visits Authorized [id number] Closed Specialty Services Required 11/22/2024 05/24/2026 1 1 Encounter Details Date Type Department Care Team (Late Contact Info) Description 11/22/2024 [facility] [address] [place] [address] Silas Baires MD [address] [facility] [address] [address] Multiple lipomas (Primary Dx) Social History Tobacco [...] Description 01/16/2026 10:30 AM EDT Office Visit [facility]astic [facility] Surgery [address] [place] [phone] Zelalem South MD [address] [facility] [address] [place] [address] Scheduled Referrals Name Type Priority Associated Diagnoses Order Schedule Ambulatory Referral to Plastic Surgery Outpatient Referral Routine Multiple lipomas Ordered: 11/22/2024 documented as of this encounter Visit Diagnoses Diagnosis Multiple lipomas- Primary documented in this encounter Care Teams Drum Plater Relationship Specialty Start Date End Date Jesus Levi MD [address] [phone] PCP - General 12/04/20 documented as of this encounter
[2025-03-31 12:53] LABS: Adenovirus F 40/41, stool Not Detected (NotDetected); Clostridium Difficile A/B, PCR Not Detected (NotDetected); Cyclospora Cayetanesis Not Detected (NotDetected); Plesimonas Shigalloides, PCR Not Detected (NotDetected); Salmonella, PCR Not Detected (NotDetected); Shiga-like toxin E coli Not Detected (NotDetected); Shigella Enterovasive E coli Not Detected (NotDetected); Vibrio, PCR Not Detected (NotDetected); Yersinia Entercolitica, PCR Not Detected (NotDetected)
[2025-04-02 13:18] LABS: Pancreatic Elastase, Fecal 291 (>200)
== END 2025-03-31 23:59 | disposition home or self-care (01) ==
LOC: LAB 12:48
PROVIDERS: PCP Internal Medicine Adolescent Medicine; Visit Provider Nurse Practitioner Family
DX: R19.7 Diarrhea, unspecified (principal)
CPT/HCPCS: 82653; 87506

== ENCOUNTER 2025-04-17 12:48 | Outpatient (CLI) | payer MEDICARE, MEDICAID, SELFPAY ==
--- NOTE | 2025-04-17 12:52 | XR_ITS ---
FINAL REPORT CLINICAL HISTORY: sob COMPARISON: 02/14/2023 FINDINGS: PA and lateral views of the chest were obtained. The heart is normal in size. Patient is status post median sternotomy. There is emphysema and evidence of prior granulomatous disease. There is right middle lobe opacity, may represent atelectasis or pneumonia. There is no pleural effusion or pneumothorax. No acute osseous abnormality is identified. IMPRESSION: Right middle lobe atelectasis versus pneumonia. Reviewed, Interpreted and Dictated by Ariana Sharp MD Transcribed by Emily Lynch Authenticated and [facility]
== END 2025-04-17 23:59 | disposition home or self-care (01) ==
LOC: RAD 12:49
PROVIDERS: PCP Internal Medicine Adolescent Medicine; Visit Provider Internal Medicine Pulmonary Disease
DX: R91.8 Other nonspecific abnormal finding of lung field (principal); R06.02 Shortness of breath
CPT/HCPCS: 71046

== ENCOUNTER 2025-05-08 14:00 | Day surgery (SDC) | payer MEDICARE, MEDICAID, SELFPAY ==
--- NOTE | 2025-05-08 07:04 | EXP.HP ---
History of Present Illness *Admission Date: 05/08/25 *History of present illness: Mrs. Helton is a 64-year-old female who is here for diagnostic colonoscopy. The patient has had diarrhea for the last 3 months. She did have panendoscopy in April 2024 and had a single polyp (tubular adenoma) which was removed. Her diarrhea began in July 2024. Her PCR stool panel was normal. She is having watery stools with mucus. There is sometimes bright red blood and black stool. She does get a lot of gassiness and bloating. She was placed on loperamide 4 times daily but still having multiple urgent bowel movements daily. She tried Kaopectate and Gas-X. She is having some fecal incontinence. The examination is deemed medically necessary for diagnostic colonoscopy. The patient has been seen, interviewed and examined prior to the procedure by both myself and the anesthesia provider. [facility] Disclaimer: The information contained in this section may have been updated after the patient was seen, as this information can be updated by other users. Medical History Positive D-dimer Acute respiratory failure with hypoxia Unspecified hearing loss COPD mixed type COPD exacerbation Chronic cough Dyspnea on exertion Smoking greater than 30 pack years Nodule of left lung Brain aneurysm History of brain aneurysm clipping Hip pain Encounter for removal of skin lesion Bacterial vaginosis Lesion of right shoulder Lumbar canal stenosis See above. Strain of thoracic spine Back injury See above. Benign neoplasm eyebrow skin ENT referral for removal Neck pain Cervical spine Xray Surgical History S/P shoulder surgery History of hysterectomy History of appendectomy Family History Other Esophageal cancer Lung cancer Social History (Updated 05/08/25 @ 14:23 by Beena Goodrich RN) Smoking Status: Former smoker smoking status stop date: 03/24/2023 second hand exposure: No alcohol intake: current substance use type: marijuana and crack/cocaine current occupational status: employed Travel in the last 8 weeks?: None household members: children housing: house lives independently: Yes marital status: current occupational exposures/hazards: No caffeine: Yes Have you lived/traveled outside US in past 30 days?: No Contact w/someone who lives/traveled outside US past 30 days?: No Exposure to someone with infectious disease in past 14 days?: No Do you have a fever (greater than 100.4 F or 38 C)?: No Have you tested positive for COVID-19?: No Exposed to someone with COVID-19 in past 14 days?: No Do you have a sore throat?: No Do you have a cough?: No Do you have any weakness?: No Are you experiencing any nausea/vomitting?: No Do you have any diarrhea?: No Are you experiencing any unusual bleeding?: No Do you have any muscle aches/pain?: No Do you have any abdominal pain?: No Are you experiencing loss of taste or smell?: No Other Medical History Have you received the Flu Vaccine for this season: No Have you received the Pneumonia Vaccine: Yes Review of Systems Review of Systems Review of systems (narrative): Negative *Cardiovascular Comments: Negative *Gastrointestinal Comments: Negative *Genitourinary Comments: Negative *Musculoskeletal Comments: Negative *Neurologic Comments: Negative Meds Home Medications and Allergies Home Medications ?Medication ?Instructions ?Recorded ?Confirmed ?Type albuterol sulfate 90 mcg/actuation 2 puff inhalation Q6H PRN 05/20/24 05/08/25 Rx aerosol inhaler (Ventolin HFA) shortness of breath or wheezing #6.7 grams esomeprazole magnesium 40 mg 40 mg PO DAILY #180 caps 05/20/24 05/08/25 Rx capsule,delayed release loperamide 2 mg capsule 2 mg PO QID PRN loose stool #14 08/06/24 05/08/25 Rx caps fluticasone fur. 100 mcg-umeclid 1 inh inhalation DAILY 90 days #90 08/07/24 05/08/25 Rx 62.5 mcg-vilant 25 mcg ea inhalat.powder (Trelegy Ellipta) levothyroxine 100 mcg tablet 100 mcg PO DAILY #180 tabs 08/16/24 05/08/25 Rx rimegepant 75 mg disintegrating 75 mg PO Q OTHER DAY PRN migraine 08/19/24 05/08/25 Rx tablet (Nurtec ODT) headache #16 tabs calcium 600 mg (as 1 tab PO DAILY 12/02/24 05/08/25 History carbonate)-vitamin D3 20 mcg (800 unit) tablet gabapentin 100 mg capsule 100 mg PO BID 03/31/25 05/08/25 History levetiracetam 500 mg tablet 500 mg PO BID 03/31/25 05/08/25 History ipratropium 0.5 mg-albuterol 3 mg 3 ml inhalation QID PRN shortness 04/15/25 05/08/25 Rx (2.5 mg base)/3 mL nebulization of breath #90 mL soln doxycycline hyclate 100 mg capsule 100 mg PO BID 5 days #10 caps 04/18/25 05/08/25 Rx prednisone 20 mg tablet 40 mg (2 x 20 mg) PO DAILY 5 days 04/18/25 05/08/25 Rx #10 tabs peg 3350-electrolytes 236 240 ml PO Q10M colonscopy #4,000 mL 04/25/25 05/08/25 Rx gram-22.74 gram-6.74 gram-5.86 gram solution (Golytely) New Prescriptions to Start Prescriptions: Allergies Allergy/AdvReac Type Severity Reaction Status Date / Time codeine AdvReac Mild Nausea Verified 05/08/25 14:30 Exam *Routine HEENT Exam Head: Present normocephalic Eye: Present EOMI and PERRL ENT: Present mucous membranes moist *Routine Neck Exam Neck: Present supple *Routine Respiratory Exam Respiratory: Present CTA bilaterally *Routine Cardiovascular Exam Cardiovascular: Present RRR *Routine Abdominal Exam Abdominal: Present soft and normoactive bowel sounds; Absent tenderness *Routine Rectal Exam Rectal:: deferred *Routine Genitalia Exam Genitalia:: deferred *Routine Extremities Exam Extremities: Absent cyanosis, clubbing or edema *Routine Skin Exam Skin: Present warm; Absent rash *Routine Neurological Exam Neurological: Present alert and oriented X3 Assessment and Plan *Assessment and plan (1) Change in bowel habits: Status: Acute Category: Medical Code(s): R19.4 - Change in bowel habit (2) Bloating: Status: Acute Category: Medical Code(s): R14.0 - Abdominal distension (gaseous) (3) Diarrhea: Status: Acute Category: Medical Code(s): R19.7 - Diarrhea, unspecified (4) Incontinence of feces with fecal urgency: Status: Acute Category: Medical Code(s): R15.9 - Full incontinence of feces; R15.2 - Fecal urgency Plan A/P: 1. Diarrhea with fecal urgency and fecal incontinence with change in bowel habits is the preprocedural diagnosis. She also has gassiness, bloating and abdominal discomfort. The patient will be anesthetized/sedated using MAC sedation. The patient has been seen and examined. Cardiac and lung assessment prior to the examination is stable. Proceed with planned diagnostic colonoscopy.
--- NOTE | 2025-05-08 07:19 | P.PCN_ITS ---
[facility] Procedure Note Date: 05/08/25 Time: 15:30 Procedure Note:: Colonoscopy Procedure Report: Colonoscopy cold snare polypectomy Endoscopist: Hrasha Sal II, MD Referring physician: Silas Baires M.D. Date of Procedure: May 08, 2025 Equipment: Olympus [id number] adult colonoscope Sedation: MAC sedation Indication: Mrs. Helton is a 64-year-old female who is here for diagnostic colonoscopy. The patient has had diarrhea for the last 4 to 5 months. She did have panendoscopy in April 2024 and had a single polyp (tubular adenoma) which was removed. Her diarrhea began in July 2024. Her PCR stool panel was normal. She is having watery stools with mucus. There is sometimes bright red blood and black stool. She does get a lot of gassiness and bloating. She was placed on loperamide 4 times daily but still having multiple urgent bowel movements daily. She tried Kaopectate and Gas-X. She is having some fecal incontinence. She reports no weight loss or family history of colon cancer. The examination is deemed medically necessary for diagnostic colonoscopy. Procedure: Prior to the procedure, a history and physical exam was performed, and patient's medications and allergies were reviewed. The risks, benefits and alternatives of the sedation and procedure were discussed with the patient. All questions were answered and informed consent was obtained. The patient was brought to the procedure room. Patient identification and proposed procedure were verified by the physician and the nurse. The patient was placed in a left lateral decubitus position and the scope was passed under direct vision. Throughout the procedure, the patient's blood pressure, pulse, and oxygen saturations were monitored continuously. The colonoscopy was accomplished without difficulty. The patient tolerated the procedure well. Findings: On digital rectal examination there was normal rectal tone. There were no external hemorrhoids. The colonoscope was introduced through the anal canal to the rectum and advanced to the cecum. The ileocecal valve and appendiceal or ifice were identified. The scope was advanced a short distance into the ileum which appeared grossly normal. The scope was then withdrawn into the colon. The cecum, ascending and transverse colon and mucosa were grossly normal. Cold biopsy were taken from the right colon to rule out microscopic colitis. There were very mildly scattered diverticuli throughout the descending and sigmoid colon (LEFT colon). There was a single diminutive 2 to 3 mm polyp in the descending removed via cold biopsy. There was a flat appearing mucosal fold that may be a mucosal prolapse polyp that was removed via snare polypectomy. The rectum itself was normal. Upon retroflexion within the rectum there were grade 1-2 internal hemorrhoids. The preparation was good throughout with Welches Preparation Score of 8 out of 9. The cecal time was 12 minutes. Impression: 1. Diminutive 2 to 3 mm descending polyp 2. Mild left-sided diverticulosis 3. Grade 1-2 internal hemorrhoids Plan: I will follow-up the biopsies to rule out microscopic/lymphocytic colitis. If the biopsies are normal, I would consider treatment with Viberzi. I will discuss the findings with the patient and family.
[2025-05-08 14:20] VITALS: BP 163/101; PULSE 73; RESP 16; TEMP 36.1; O2SAT 98; BMI 24.2
[2025-05-08] MEDS: LACTATED RINGERS 1000ML 1,000 ML 50 ML IV (14:32)
[2025-05-08 15:33] VITALS: BP 124/71; PULSE 73; RESP 18; TEMP 36.3; O2SAT 98
[2025-05-08 15:43] VITALS: BP 134/81; PULSE 70; O2SAT 97
[2025-05-08 15:53] VITALS: BP 146/87; PULSE 64; O2SAT 99
[2025-05-08 16:03] VITALS: BP 152/86; PULSE 65; O2SAT 98
--- NOTE | 2025-06-10 12:13 | PC.NURSE ---
04/09/2025 pt was scheduled for pulmonary evaluation and did not show or call.
== END 2025-05-08 16:03 | disposition home or self-care (01) ==
PROVIDERS: PCP Internal Medicine Adolescent Medicine; Visit Provider Internal Medicine Gastroenterology
PROC: 0DJD8ZZ Inspection of Lower Intestinal Tract, Via Natural or Artificial Opening Endoscopic (ICD-10-PCS; CPT 45378; principal; 2025-05-08 15:00)
DX: D12.4 Benign neoplasm of descending colon (principal); K63.5 Polyp of colon; K52.832 Lymphocytic colitis; K57.30 Diverticulosis of large intestine without perforation or abscess without bleeding; K64.0 First degree hemorrhoids; K64.1 Second degree hemorrhoids; Z87.891 Personal history of nicotine dependence; J44.1 Chronic obstructive pulmonary disease with (acute) exacerbation; J96.01 Acute respiratory failure with hypoxia; Z88.6 Allergy status to analgesic agent
CPT/HCPCS: 45385; 88305; J2003; J2704; J7120

== ENCOUNTER 2025-06-23 09:45 | Outpatient (CLI) | payer MEDICARE, MEDICAID, SELFPAY ==
--- OUTSIDE RECORDS SUMMARY | 2025-06-23 09:47 | XMS_ITS | Clinical Summary ---
Author Organization [employer] [facility] Address [address] [place] [address] Phone Care Team Providers Care Long Term Care Administrator Name Role Phone Arleen Ellison MD Primary Care Physician [ ] Conditions or Problems Problem Name Problem Code Onset Date Status Entry Date Provider Comment Standard Description Annotate ARTHRITIS, HAND 360982979 (SNOMED CT) 09/28 Active 09/28 Arleen Ellison MD Arthritis of hand INSOMNIA NEC 395457818 (SNOMED CT) 09/28 Active 09/28 Arleen Ellison MD Insomnia TOBACCO USE DIS F17.200 (ICD-10-CM) 08/17 Active 08/17 Arleen Ellison MD Nicotine dependence, unspecified, uncomplicated BRONCHITIS ACUTE 16598677 (SNOMED CT) 08/17 Inactive 08/17 Arleen Ellison MD Acute bronchitis Medications Medication Instructions Start Date Stop Date Generic Name [facility] Provider TRAZODONE HCL 50 MG TABS 1BY MOUTH EVERY NIGHT TRAZODONE HCL [id number] Arleen Ellison MD ETODOLAC 400 MG TABS 1 BY MOUTH TWO TIMES A DAY ETODOLAC [id number] Arleen Ellison MD PROAIR HFA 108 (90 Base) MCG/ACT INHALATION AEROSOL SOLUTION [id number] ALBUTEROL SULFATE 88274446095 Arleen Ellison MD MUCINEX 600 MG [id number] 2pobid GUAIFENESIN 66032056418 Arleen Ellison MD AZITHROMYCIN 250 MG TABS 2po x1d [id number] AZITHROMYCIN [id number] Arleen Ellison MD Medications Administered No information [...]
--- OUTSIDE RECORDS SUMMARY | 2025-06-23 09:48 | XMS_ITS | Clinical Summary ---
Author Organization [facility] Address [address] [place] [address] Care Team Providers Care Relations Liaison Name Role Phone Cristiane Burrows Primary Care Provider [phone] Allergies No known active allergies Medications albuterol [...] ANNUAL PHYSICAL 08/17/2020 HEPATITIS C SCREENING 08/17/2020 INFLUENZA VACCINE 02/21/2025 COVID-19 Vaccine ( season) 2025 Insurance MEDICARE A & B [employer] MEDICAID [place] Care Teams Relations Liaison Relationship Specialty Start Date End Date Cristiane Burrows PA PCP - General Physician Strategic Account Manager 08/10/20
--- OUTSIDE RECORDS SUMMARY | 2025-06-23 09:48 | XMS_ITS | Clinical Summary ---
Author Organization Healthcare Address [address] [place] [address] Care Team Providers Care Barrel Dedenting Machine Operator Name Role Phone Jesus Levi MD Primary Care Provider + [phone] Allergies No known active allergies Medications albuterol 108 (90 Base) MCG/ACT inhaler Acti ve ALPRAZolam (Xanax) 2 MG tablet 5 Active [...] TWICE DAILY FOR 5 DAYS 4 Active Active Problems Problem Noted Date Diagnosed Date Soft tissue mass 01/03/2025 Immunizations Immunization Administration Dates Next Due Influenza, seasonal, injectable 07/24/2013 Pneumococcal Polysaccharide PPV23 07/24/2013 Family History Medical History Relation Name Comments Lung cancer Father Esophageal cancer Mother Lymphoma Mother Relation Name Status Comments Father Mother Social History Tobacco Use Types Packs/Day Years Used Date Smoking Tobacco: Former Cigarettes 1 41.9 S tarted: 1984 Smokeless Tobacco: Never Comments [...] Description 01/16/2026 10:30 AM EDT Office Visit [facility] Plastic & Re[facility]ive Surgery [address] [place] [address] Zelalem South MD [address] [address] Health Maintenance Due Date Last Done Comments [...] - Risk 60-74 years 1-dose series) 2019 [id number] Vaccine ( season) 2025 12/31/2021, 06/09/2021, 11/04/2020, [...] patient's age to complete this topic Insurance [facility] [employer] MEDICAID [facility] MEDICARE Member Subscriber Plan / Payer (Ef fective 2024-Present) Name:Nava Helton Relation to Subscriber:Self Name:Nava Helton Payer ID:[id number] (NAIC) Type:Not on file Address: [place] [id number] [facility] MEDICAID Member Subscriber Plan / Payer ( fective 2020-Present) Name:Nava Helton Relation to Subscriber:Self Name:Nava Helton Payer ID:[id number] (NAIC) Group ID:Not on file Type:Medicaid Address: [place] [id number] Care Teams Barrel Dedenting Machine Operator Relationship Specialty Start Date End Date Jesus Levi MD [address] [place] [address] PCP - General 12/04/20
--- OUTSIDE RECORDS SUMMARY | 2025-06-23 09:48 | XMS_ITS | Encounter Summary ---
Author Organization Healthcare Address [address] [place] [address] Care Team Providers Care Toy Assembly Supervisor Name Role Phone Jesus Levi MD Primary Care Provider [phone] Reason for Referral * Consultation (Routine) - Closed Specialty Diagnoses / Procedures Referred By Cristina chaidez Referred To Contact Plastic Surgery Diagnoses Multiple lipomas Silas Baires MD [address] [facility] [address] [place] [id number] Phone: tel: fax: Referral ID Status Reason Start Date Expiration Date V isits Requested Visits Authorized [id number] Closed Specialty Services Required 11/22/2024 05/24/2026 1 1 Encounter Details Date Type Department Care Team (Late Contact Info) Description 11/22/2024 [facility] [address] [place] [address] Silas Baires MD [address] [facility] [address] [address] Multiple lipomas (Primary Dx) Social History Tobacco [...] 10:30 AM EDT Office Visit [facility] [address] [place] [phone] Zelalem South MD [address] [facility] [address] [place] [address] Scheduled Referrals Name Type Priority Associated Diagnoses Order Schedule Ambulatory Referral to Plastic Surgery Outpatient Referral Routine Multiple lipomas Ordered: 11/22/2024 documented as of this encounter Visit Diagnoses Diagnosis Multiple lipomas- Primary documented in this encounter Care Teams Toy Assembly Supervisor Relationship Specialty Start Date End Date Jesus Levi MD [address] [place] [id number] PCP - General 12/04/20 documented as of this encounter
[2025-06-23 10:18] LABS: Blood Urea Nitrogen 13 mg/dl (7-17); Creatinine,Serum 0.70 mg/dl (0.52-1.04); Estimated Glomerular Filt Rate 84 ml/min (>60); GFR (African American) 102 ML/MIN (>60)
== END 2025-06-23 23:59 | disposition home or self-care (01) ==
LOC: LAB 09:46
PROVIDERS: PCP Internal Medicine Adolescent Medicine; Visit Provider Nurse Practitioner Family
DX: I67.1 Cerebral aneurysm, nonruptured (principal)
CPT/HCPCS: 36415; 82565; 84520

== ENCOUNTER 2025-06-24 12:42 | Outpatient (CLI) | payer MEDICARE, MEDICAID, SELFPAY ==
--- OUTSIDE RECORDS SUMMARY | 2024-11-11 08:15 | XMS_ITS ---
Author Organization [facility] Address [address] [address] Care Team Providers Care Bi Data Architect Name Role Phone LinBrooklynn Unavailable [phone] Brooklynn Ceballos Unavailable Unavailable MRS. Dorie Espinoza Unavailable [phone] REASON FOR VISIT ANDREW - GROWTH ON ARM Social History Sex Assigned At : Social History Observation Description Sex Assigned At Female Encounters Encounter Location Date Provider Diagnosis [facility] [address] [address] 11/11/2024 Dorie Espinoza Plan Of Treatment No Information Progress Notes * Nava SMILEY RDOB:1960 (64 yo F)Acc No.[id number]:11/11/2024 Patient: Nava Ram Provider: Nancy Espinoza NP :1960 A ge:64 Y S ex:Female Date:11/11/2024 Address:[id number] Subjective: * Chief Complaints: * S HELLEY - GROWTH ON ARM Billing Information: * Procedure Codes: * Electronic signature of MRS. Oshea Alexis FELIPE on 06/24/2025 at 03:17 AM EST Sign off status: Pending * Provider: Nancy Espinoza NP Date: 0 11/11/2024 Generated for Printi ng/Faxing/eTransmitting on: 1 08/25/2024 03:17 AM EST
--- OUTSIDE RECORDS SUMMARY | 2025-06-24 12:44 | XMS_ITS | Clinical Summary ---
Author Organization [facility] Address [address] [place] [address] Phone Care Team Providers Care Scanning Tech Name Role Phone Arleen Ellison MD Primary Care Physician [ ] Conditions or Problems Problem Name Problem Code Onset Date Status Entry Date Provider Comment Standard Description Annotate ARTHRITIS, HAND 515212701 (SNOMED CT) 09/28 Active 09/28 Arleen Ellison MD Arthritis of hand INSOMNIA NEC 645282670 (SNOMED CT) 09/28 Active 09/28 Arleen Ellison MD Insomnia TOBACCO USE DIS F17.200 (ICD-10-CM) 08/17 Active 08/17 Arleen Ellison MD Nicotine dependence, unspecified, uncomplicated BRONCHITIS ACUTE 81104128 (SNOMED CT) 08/17 Inactive 08/17 Arleen Ellison MD Acute bronchitis Medications Medication Instructions Start Date Stop Date Generic Name [facility] Provider TRAZODONE HCL 50 MG TABS 1BY MOUTH EVERY NIGHT TRAZODONE HCL [id number] Arleen Ellsion MD ETODOLAC 400 MG TABS 1 BY MOUTH TWO TIMES A DAY ETODOLAC 46196528678 Arleen Ellison MD PROAIR HFA 108 (90 Base) MCG/ACT INHALATION AEROSOL SOLUTION [id number] ALBUTEROL SULFATE 51933457618 Arleen Ellison MD MUCINEX 600 MG IN12B-PWN 2pobid GUAIFENESIN 97058497241 Arleen Ellison MD AZITHROMYCIN 250 MG TABS 2po x1d [id number] AZITHROMYCIN 59652989825 Arleen Ellison MD Medications Administered No information [...]
--- NOTE | 2025-06-24 12:45 | MR_ITS ---
FINAL REPORT TECHNIQUE: Imaging of the intracerebral vasculature was obtained without intravenous contrast using [id number] imaging. CLINICAL HISTORY: hx of aneurysm headaches pt also stated that she can feel the screws coming out of her head COMPARISON: None FINDINGS: Susceptibility artifact in the supraclinoid region limits exam. Intracranial portions of the left internal carotid artery as well as the proximal portions of the bilateral AICAs are not visualized. The visualized portions of the more distal ACAs and MCAs appear patent. The basilar artery and leather tanner appear patent without stenosis or aneurysm. IMPRESSION: Limited exam due to artifact. Visualized intracranial vasculature appears patent. Reviewed, Interpreted and Dictated by Ariana Sharp MD Transcribed by Juani Brasher Authenticated and [facility]
--- OUTSIDE RECORDS SUMMARY | 2025-06-24 12:45 | XMS_ITS | Clinical Summary ---
Author Organization Healthcare Address [address] [place] [address] Care Team Providers Care Scalp Treatment Operator Name Role Phone Jesus Levi MD Primary Care Provider + [phone] Allergies No known active allergies Medications albuterol [...] 10:30 AM EDT Office Visit [facility] Plastic & Reconstructive Surgery [address] [place] [address] Zelalem South MD [address] [address] Health Maintenance Due Date Last Done Comments [...] - Risk 60-74 years 1-dose series) 2019 [id number] Vaccine ( season) 2025 12/31/2021, 06/09/2021, 11/04/2020, [...] to complete this topic Insurance [facility] [employer] [place] [address] [facility] MEDICARE Member Subscriber Plan / Payer (Ef fective 2024-Present) Name:Nava Helton Relation to Subscriber:Self Name:Nava Helton Payer ID:[id number] (NAIC) Type:Not on file Address: [place] [id number] [facility] MEDICAID Member Subscriber Plan / Payer ( fective 2020-Present) Name:Nava Helton Relation to Subscriber:Self Name:Nava Helton Payer ID:[id number] (NAIC) Group ID:Not on file Type:Medicaid Address: [place] [id number] Care Teams Scalp Treatment Operator Relationship Specialty Start Date End Date Jesus Levi MD [address] [place] [address] PCP - General 12/04/20
--- NOTE | 2025-06-24 12:46 | MR_ITS ---
FINAL REPORT TECHNIQUE: Multiplanar and multisequence imaging of the brain was obtained before and after contrast administration. CLINICAL HISTORY: LT SIDED HEADACHE/BRAIN ANEURYSM hx of aneurysm headaches pt also stated that she can feel the screws coming out of her head COMPARISON: None FINDINGS: There is susceptibility artifact along the inferior frontal lobes presumed related to aneurysm clip given provided history. No mass effect or midline shift. No hydrocephalus. There is right frontal encephalomalacia possibly related to old infarct. Bilateral periventricular subcortical white matter changes are noted. No evidence of restricted diffusion. No acute soft tissue abnormality. Post infusion images demonstrate no abnormal enhancement. IMPRESSION: No acute intracranial abnormality and no pathologic contrast enhancement. Chronic findings likely related to chronic small vessel ischemia and aneurysm repair. Reviewed, Interpreted and Dictated by Ariana Sharp MD Transcribed by Juani Brasher Authenticated and [facility]
--- OUTSIDE RECORDS SUMMARY | 2025-06-24 12:46 | XMS_ITS | Continuity of Care Document ---
Author Organization [facility] - [facility] Address [address] [place] [address] Care Team Providers Care Creative Art Therapist Name Role Phone [facility] [employer] MANAGER Referri caron Provider GERARD HOWARD Referring Provider Assessment No assessment recorded. Plan of Treatment Reminders Order Date Submit Date Provider Last Modified By Organization Details Last Modified Time Details Appointments Follow Up 20 2024 02:00P M Inocencia Goodrich APRN Not available Not available Not available Lab drug screen, 14 drugs (detecti med), urine 2024 AYSHA [facility], [address] , [address], [place], [address], 06/22/2025 17:06:38 Referral neurolog ical surgeon referral - has plates and screws from prior surgery that are loose 2024 025 ATHENABRITT Ho MD, [address] , [address], [place], [address], 06/23/2025 14:25:19 dermatol ogist referral - dark multi colored brown irregula r shape lesion to chest-po ssible-m elanoma 2024 025 bstearalena Srinivasan MD, [address], [place], [address], 06/23/2025 14:25:50 Procedures None recorded . Surgeries None recorded . Imaging MAMMO, screenin g, tomosynt hesis, bilatera l 2024 025 [facility] ([facility]), [address] [place], [address], 06/23/2025 14:33:10 Medication Orders esomepra zole magnesiu m 40 mg capsule, delayed release 2024 025 AYSHA [facility], [address] [address] [place], [id number], 06/17/2025 16:12:29 Patient TargetsNo targets recorded. Patient InstructionsNo instructions recorded. Reason for Referral Neurological Surgeon Referra l for Intracranial aneurysm has plates and screws from prior surgery that are loose Referring Physician: Inocencia Goodrich [facility], Encounter Date: 06/17/2025 Forging Machine Hand Referral for S kin lesion dark multi colored brown irregular shape lesion to lkfnf-rxpflqol-ztikvzzm Referring Physician: Inocencia Goodrich [facility], Encounter Date: 06/17/2025 Problems Name Problem SNOMED Code Status Onset Date Resolution Date Notes Provider Name and Address Organization Details Recorded Time Gastroesophage al reflux disease 056454972 Active 2024 Inocencia Goodrich APRN [address], [place], [address], [place] - [facility] 14:46:03 Skin lesion 03387803 Active 2024 Inocencia Goodrich APRN [address], [place], [address], [place] - [facility] 14:46:05 Anxiety 37427226 Active 2024 Inocencia Goodrich APRN [address], [place], [address], [place] [facility] 14:46:07 Mixed simple and mucopurulent chronic bronchitis 929971031 Active 2024 Inocencia Goodrich APRN [address], [place], [address], [place] [facility] 14:46:09 Intracranial aneurysm 254613087 Active 2024 Inocencia Goodrich, [employer] [address], [place], [address], [place] [facility] 14:46:10 Lung mass 811278070 Active 2024 Inocencia Goodrich, [employer] [address], [place], [address], [place] [facility] 14:46:13 Liver mass 509712612 Active 2024 Inocencia Goodrich, [employer] [address], [place], [address], [place] [facility] 14:46:14 Primary hypothyroidism 68634699 Active 2024 Inocencia Goodrich, [employer] [address], [place], [address], [place] [facility] 14:46:17 Essential hypertension 49104672 Active 2024 Inocencia Goodrich, [employer] [address], [place], [address], [place] - [facility] 14:46:19 Problem Notes None recorded. Procedures Surgical History Date Name Laterality Status Provider Name and Address Organization Details Recorded Time repair of aneurysm completed Leigha Hedrick [place] - [facility] 06/17/2025 14:11:57 appendectomy completed Leigha Hedrick [place] [facility] 06/17/2025 14:12:04 section completed Shu Hedrick [place] - [facility] 06/17/2025 14:12:12 injection of carpal tunnel completed Leigha [place]rick [place] [facility] 06/17/2025 14:12:57 lobectomy of lung completed Ashley [place] [facility] 06/17/2025 14:13:21 Orthopedic Surgery completed Leigha [place]rick [place] [facility] 06/17/2025 14:13:51 Hysterectomy, Total Abdominal completed Leigha Hedrick [place] - [facility] 06/17/2025 14:14:46 Imaging Results None recorded. Procedure Notes None recorded. Medical Equipment None Reported. Allergies No known drug allergies Medications Name Sig Start Date Stop Date Status Note LastModified by Organization Details LastModified Time losartan 50 mg tablet TAKE 1 TABLET BY MOUTH ONCE A DAY active Not Available Not Available No t Available celecoxib 200 mg capsule TAKE 1 CAPSULE BY MOUTH ONCE A DAY NEEDED FOR PAIN 06/17 completed Not Available Not Available Not Available promethazin e-DM 6.25 mg-15 mg/5 mL oral syrup TAKE 5 ML BY MOUTH EVERY 6 HOURS NEEDED 06/17 completed Not Available Not Available Not Available doxycycline hyclate 100 mg capsule TAKE 1 CAPSULE BY MOUTH 2 TIMES A DAY FOR 5 DAYS 06/17 completed Not Available Not Available Not Available ipratropium 0.5 mg-albutero l 3 mg (2.5 mg base)/3 mL nebulizatio n soln INHALE CONTENTS OF 1 VIAL (3 ML) VIA NEBULIZER 4 TIMES A DAY NEEDED FOR SHORTNESS OF BREATH active Not Available Not Available No t Available albuterol sulfate 2.5 mg/3 mL (0.083 %) solution for nebulizatio n INHALE CONTENTS OF 1 VIAL (3 ML) VIA NEBULIZER EVERY 6 HOURS NEEDED active Not Available Not Available No t Available loperamide 2 mg capsule TAKE 1 CAPSULE BY MOUTH 4 TIMES DAILY NEEDED 06/17 completed Not Available Not Available Not Available azithromyci n 250 mg tablet TAKE 2 TABLETS BY MOUTH ON DAY 1, THEN TAKE 1 TABLET DAILY ON DAYS 2 THROUGH 5 05/16 completed Not Available Not Available Not Available fluconazole 150 mg tablet TAKE 1 TABLET BY MOUTH TODAY, THEN REPEAT AFTER FINISHING ANTIBIOTI CS 06/17 completed Not Available Not Available Not Available levetiracet am 500 mg tablet TAKE 1 TABLET BY MOUTH EVERY TWELVE HOURS active Not Available Not Available No t Available prednisone 20 mg tablet take 2 tablets BY MOUTH ONCE A DAY FOR 5 DAYS 06/17 completed Not Available Not Available Not Available quetiapine 100 mg tablet TAKE 1 TABLET BY MOUTH ONCE A DAY 06/17 completed Not Available Not Available Not Available levothyroxi ne 100 mcg tablet TAKE ONE TABLET BY MOUTH ONCE A DAY active Not Available Not Available No t Available famotidine 20 mg tablet TAKE 1 TABLET BY MOUTH AT BEDTIME active Not Available Not Available No t Available amitriptyli ne 10 mg tablet TAKE ONE TABLET BY MOUTH AT BEDTIME active Not Available Not Available No t Available doxycycline monohydrate 100 mg capsule TAKE 1 CAPSULE BY MOUTH 2 TIMES A DAY 05/16 completed Not Available Not Available Not Available cephalexin 500 mg capsule TAKE 1 CAPSULE BY MOUTH 2 TIMES A DAY FOR 7 DAYS 05/16 completed Not Available Not Available Not Available esomeprazol e magnesium 40 mg capsule,del ayed release Take 1 capsule every day by oral route. 2024 active Not Available Not Available Not Avai lable triamcinolo ne acetonide 0.1 % topical ointment APPLY TO THE AFFECTED AREA(S) 2 TIMES A DAY NEEDED 06/17 completed Not Available Not Available Not Available gabapentin 100 mg capsule TAKE 1 CAPSULE BY MOUTH 2 TIMES A DAY 06/17 completed Not Available Not Available Not Available azelastine 137 mcg (0.1 %) nasal spray USE 1 SPRAY in each nostril EVERY EVENING 06/17 completed Not Available Not Available Not Available budesonide DR - ER 3 mg capsule,del ayed,extend ed release TAKE 3 CAPSULES BY MOUTH AT BEDTIME active Not Available Not Available No t Available albuterol sulfate HFA 90 mcg/actuati on aerosol inhaler INHALE 2 PUFFS BY MOUTH EVERY 6 HOURS active Not Available Not Available No t Available esomeprazol e magnesium 20 mg capsule,del ayed release TAKE 1 CAPSULE BY MOUTH 30 TO 60 MINUTES BEFORE MORNING MEAL 06/17 completed Not Available Not Available Not Available GaviLyte-G 236 gram-22.74 gram-6.74 gram-5.86 gram oral solution MIX AND DRINK 240 ML BY MOUTH EVERY 10 MINUTES AT 6PM THE DAY BEFORE SURGERY UNTIL HALF GONE. THEN DRINK REMAINDER 5-6 HOURS BEFORE EXAM 06/17 completed Not Available Not Available Not Available calcium 600 mg (as carbonate)- vitamin D3 20 mcg (800 unit) tablet Take 1 tablet every day by oral route for 30 days. active Not Available Not Available No t Available oxygen 3L/NC prn active Not Available Not Marianela ilable Not Available Trelegy Ellipta 100 mcg-62.5 mcg-25 mcg powder for inhalation Inhale 1 puff by inhalatio n route for 30 days. active Not Available Not Available No t Available Nurtec ODT 75 mg disintegrat ing tablet TAKE ONE TABLET BY MOUTH EVERY OTHER DAY NEEDED FOR MIGRAINE HEADACHE active Not Available Not Available No t Available Paxlovid 300 mg (150 mg x 2)-100 mg tablets in a dose pack TAKE 2 TABLETS OF NIRMATREL VIR WITH 1 TABLET OF RITONAVIR TWICE DAILY FOR 5 DAYS 06/17 completed Not Available Not Available Not Available Vitals Date Recorded Body weight Body mass index (BMI) Body height Body temperature Heart rate Oxygen saturation Respiratory rate Pain severity - 0-10 verbal numeric rating [Score] - Reported Systolic And Diastolic Provider Name and Address Organization Details Last Updated DateTime 70241.0 5 g 24.4 kg/m2 152.4 cm 98 [degF] 86 /min 97 % 20 /min 0 122/80 mm[Hg] Leigha Hedrick [place] - [facility] 14:30:39 Social History Question Answer Notes LastModified by Organizat ion Details LastModified Time Tobacco Smoking Status Former Smoker Leigha Hedrick null, [place] - [facility] 06/17/2025 14:10:57 Do You Have An Advance Directive? No Information not available 06/17/2025 Are You Blind Or Do You Have Difficulty Seeing? No Information not available 06/17/2025 Are You Deaf Or Do You Have Serious Difficulty Hearing? No Information not available 06/17/2025 What Is The Highest Grade Or Level Of School You Have Completed Or The Highest Degree You Have Received? BO92269-1 Information not available 06/17/2025 When Did You Quit Smoking? 1-5yearssin nicki mccain Information not available 06/17/2025 Do You Have A Medical Power Of Farm Operations Technical Director? No Information not available 06/17/2025 What Was The Date Of Your Most Recent Tobacco Screening? 06/17/2025 Information not available 06/17/2025 What Is Your Relationship Status? Single Information not available 06/17/2025 Do You Have Smoke And Carbon Monoxide Detectors In Your Home? Yes Information not available 06/17/2025 At What Age Did You Start Smoking Tobacco? 16 Information not available 06/17/2025 Are You Passively Exposed To Smoke? No Information no t available 06/17/2025 How Much Tobacco Do You Smoke? 1 PPD Information not available 06/17/2025 Has Tobacco Cessation Counseling Been Provided? No Information not available 06/17/2025 How Many Years Have You Smoked Tobacco? 40 Quit In 2023 Information not available 06/17/2025 Have You Recently Traveled Abroad? No Information not available 06/17/2025 Do You Have Difficulty Walking Or Climbing Stairs? No Information not available 06/17/2025 Sex: Female Functional Status Question Answer Note LastModified by Organizat ion Details LastModified Time Do you use any illicit or recreational drugs? No Information not available 06/17/2025 Do you or have you ever used any other forms of tobacco or nicotine? No Information not available 06/17/2025 What is your level of alcohol consumption? None Information not available 06/17/2025 Are you currently employed? No Information not available 06/17/2025 Do you have transportation difficulties? No Information not available 06/17/2025 Do you have difficulty doing errands alone? No Information not available 06/17/2025 Are you able to care for yourself independently? Yes Information not available 06/17/2025 Do you have difficulty dressing, bathing, grooming, or toileting? No Information not available 06/17/2025 Mental Status Question Answer Note LastModified by Organization D etails LastModified Time Do you have difficulty concentrating, remembering or making decisions? No Information no t available 06/17/2025 Family History Relationship Description Onset Age of this Age Resolved Age Notes LastModified by Organization Details LastModified Time Father Malignant neoplasm of lung 57 [email or web address] Not available 2024 14:09:37 Paternal Grandmother Aneurysm cbuckler Not available 05/25 14:09:52 Paternal Aunt Leukemia cbuckler Not av ailable 06/17/2025 14:09:12 Mother Malignant neoplasm of esophagus 83 cbuckler Not available 2024 14:09:31 Medical History Condition Response Anxiety Disorder Y Skin Problems Y Arthritis Y Aneurysm Y Acid Reflux (GERD) Y Headaches Y Hypertension Y Lung Disease Y Crohn's Disease Y Gynecological History Statement/Question Response Menses Monthly N Date of Last Pap Smear Date of Last Colonoscopy Date of Last Mammogram Obstetrics History GPAL:G 3 P 3 0 0 3 Type Value Multiple Births 0 Full Term 3 Induced 0 Spontaneous 0 Premature 0 Living 3 Ectopics 0 Total 3 Immunizations Vaccine Type Date Status Note Provider Nam e and Address Organization Details Recorded Time COVID-19, mRNA, LNP-S, PF, 100 mcg/0.5mL dose or 50 mcg/0.25mL dose 1 completed Not Available [facility] 06/17/2025 13:51:39 COVID-19, mRNA, LNP-S, PF, 100 mcg/0.5mL dose or 50 mcg/0.25mL dose 1 completed Not Available [facility] 06/17/2025 13:51:39 COVID-19, mRNA, LNP-S, PF, 100 mcg/0.5mL dose or 50 mcg/0.25mL dose 1 completed Not Available [facility] 06/17/2025 13:51:39 COVID-19, mRNA, LNP-S, PF, 100 mcg/0.5mL dose or 50 mcg/0.25mL dose 2 completed Not Available [facility] 06/17/2025 13:51:39 Influenza, high-dose, trivalent, PF 4 completed Not Available [facility] 06/17/2025 13:51:39 Pneumococcal conjugate PCV20, polysaccharide SFP277 conjugate, adjuvant, PF 4 completed Not Available [facility] 06/17/2025 13:51:39 Past Encounters Encounter ID Performer Location Encounter Start Date Encounter Closed Date Diagnosis/Indication Diagnosis SNOMED-CT Code Diagnosis ICD10 Code Diagnosis IMO Codes Diagnosis Note [id number] Inocencia Goodrich APRN [address] [address] 06/17/2025 13:38:37 06/17/2025 15:01:13 Gastroesophageal reflux disease 572058925 K21.[id number] howard if he wants her to stay on nexium, risk discussed Skin lesion 29010391 L98 .9 645941 Anxiety 49439990 F41.9 58520 Patient identified triggers for anxiety and impact of anxious thinking on functionin g. Discussed strategies to regulate symptoms and need for compliance with treatment. will hold xanax until uds resulted Mixed simp le and mucopurulent chronic bronchitis 280525524 J41.8 168744 Intracranial aneurysm 12 9120903 I67.1 051885 Lung mass 941887469 R91. [id number] Cunningham Liver mass 155895690 R16 .0 [id number] follow up with dr howard Primary hypothyroidism 07282692 E03.9 58222 Essential hypertension 20730692 I10 07777 Long-term current use of drug therapy 270185166 Z79.899 69007603 Screening mammography 24 396602 Z12.31 [id number] Health Concerns Section Related Observation LastModified by Organization Detai ls LastModified Time None Recorded Concern Status LastModified by Organization Details LastModified Time None Recorded Payers Encounter Date Sequence Insurance Name Policy Number Policy Vela Covered Member ID Vela Member ID Guarantor Name 06/17/2025 1 [employer] - GOLD PLUS (MEDICARE REPLACEMENT/ ADVANTAGE - HMO) Nava Helton [id number] Nava Helton 06/17/2025 2 MEDICAID-[facility] CHOICES - FFS/TRADITIO NAL Nava Buffalo [id number] Nava Buffalo Notes Date Note Type Note Provider Name and Address Organization Details Recorded Time 06/17/2025 text/html Anxiety/Depressi onRe ported by PatientHPIFor severity, patient reportsdenies suicidal ideations,able to maintain relationships, anddoes not interfere with activities of daily living. For context, patient reportsno major life stressors. For associated symptoms, patient reportsdenies homicidal ideations,no significant weight gain,no significant weight loss,no visual/auditory hallucinations,no delusions,no shortness of breath,mood good,no anxiety,no crying spells,no panic,no isolation,sleeping well,appetite good,energy good,no apathy, andmaintaining functionality. 64 yr old female presents as a new patient. She has multiple medical issues and has anxiety, has taken xanax in the past and done well on it. She has some hardware in her skull that has worked loose and she is having an MRI/MRA on Jun 24. She is seeing Dr Hendrickson for a lung mass and is on oxygen. She is on medication for colitis and she thinks it is making her itch. She also has a mole to her chest she would like to have checked out.home o2 dependent- pt states when she gets soa her anxiety goes up Inocencia Goodrich, [employer] [address], [place], [address], [place] [facility] 06/17/2025 15:27:11 OBGyn Episode No OBEpisode recorded.
--- OUTSIDE RECORDS SUMMARY | 2025-06-24 12:46 | XMS_ITS | Clinical Summary ---
[facility] Address [address] [place] [address] Care Team Providers Care Data Science And Iot Manager Name Role Phone Cristiane Burrows Primary Care Provider [phone] Allergies No known active allergies Medications albuterol [...] & B [employer] [place] Care Teams Data Science And Iot Manager Relationship Specialty Start Date End Date Cristiane Burrows PA PCP - General Physician Dog Barber 08/10/20
--- OUTSIDE RECORDS SUMMARY | 2025-06-24 12:46 | XMS_ITS | Encounter Summary ---
Author Organization Healthcare Address [address] [place] [address] Care Team Providers Care Lead Simulation Modeling Engineer Name Role Phone Jesus Levi MD Primary Care Provider [phone] Reason for Referral * Consultation (Routine) - Closed Specialty Diagnoses / Procedures Referred By Cristina chaidez Referred To Contact Plastic Surgery Diagnoses Multiple lipomas Silas Baires MD [address] [facility] [address] [id number] Phone: tel: fax: Referral ID Status Reason Start Date Expiration Date V isits Requested Visits Authorized [id number] Closed Specialty Services Required 11/22/2024 05/24/2026 1 1 Encounter Details Date Type Department Care Team (Late Contact Info) Description 11/22/2024 [facility] [place] [place] [facility] [address] [place] [address] Silas Biares MD [address] [facility] [address] [address] Multiple lipomas (Primary Dx) Social History Tobacco [...] [facility] [address] [place] [address] Zelalem South MD [address] [facility] [address] [place] [address] Scheduled Referrals Name Type Priority Associated Diagnoses Order Schedule Ambulatory Referral to Plastic Surgery Outpatient Referral Routine Multiple lipomas Ordered: 11/22/2024 documented as of this encounter Visit Diagnoses Diagnosis Multiple lipomas- Primary documented in this encounter Care Teams Lead Simulation Modeling Engineer Relationship Specialty Start Date End Date Jesus Levi MD [address] [id number] PCP - General 12/04/20 documented as of this encounter
--- OUTSIDE RECORDS SUMMARY | 2025-06-24 12:46 | XMS_ITS | Data Portability ---
Author Organization [facility] Address [address] [place] [address] Care Team Providers Care Ems Educator Name Role Phone [employer] GUIDANCE COUNSELOR Referri caron Provider GERARD HOWARD Referring Provider Assessment No assessment recorded. Plan of Treatment Reminders Order Date Submit Date Provider Last Modified By Organization Details Last Modified Time Details Appointments Follow Up 20 2024 02:00P M Inocencia Goodrich APRN Not available Not available Not available Lab drug screen, 14 drugs (detecti med), urine 2024 AYSHA [facility], [address] , [address], [place], [address], 06/22/2025 17:06:38 Referral neurolog ical surgeon referral - has plates and screws from prior surgery that are loose 2024 025 ATHENABRITT Ho MD, [address] [facility], [address], [place], [address], 06/23/2025 14:25:19 dermatol ogist referral - dark multi colored brown irregula r shape lesion to chest-po ssible-m elanoma 2024 025 bstearalena Srinivasan MD, [address], [place], [address], 06/23/2025 14:25:50 Procedures None recorded . Surgeries None recorded . Imaging MAMMO, screenin g, tomosynt hesis, bilatera l 2024 025 [facility] ([facility]), [address] [place], [address], 06/23/2025 14:33:10 Medication Orders esomepra zole magnesiu m 40 mg capsule, delayed release 2024 025 AYSHA [facility], [address] [address] [place], [id number], 06/17/2025 16:12:29 Patient TargetsNo targets recorded. Patient InstructionsNo instructions recorded. Reason for Referral Neurological Surgeon Referra l for Intracranial aneurysm has plates and screws from prior surgery that are loose Referring Physician: Inocencia Goodrich [facility], Encounter Date: 06/17/2025 Bench Worker Binding Referral for S kin lesion dark multi colored brown irregular shape lesion to ucnbb-dviwyzfw-qswavtcy Referring Physician: Inocencia Goodrich [facility], Encounter Date: 06/17/2025 Problems Name Problem SNOMED Code Status Onset Date Resolution Date Notes Provider Name and Address Organization Details Recorded Time Gastroesophage al reflux disease 331852055 Active 2024 Inocencia Goodrich APRN [address], [place], [address], [place] - [facility] 14:46:03 Skin lesion 40322929 Active 2024 Inocencia Goodrich APRN [address], [place], [address], [place] - [facility] 14:46:05 Anxiety 63719368 Active 2024 Inocencia Goodrich APRN [address], [place], [address], [place] [facility] 14:46:07 Mixed simple and mucopurulent chronic bronchitis 529968679 Active 2024 Inocencia Goodrich APRN [address], [place], [address], [place] [facility] 14:46:09 Intracranial aneurysm 079693896 Active 2024 Inocencia Goodrich, [employer] [address], [place], [address], [place] [facility] 14:46:10 Lung mass 446165642 Active 2024 Inocencia Goodrich, [employer] [address], [place], [address], [place] [facility] 14:46:13 Liver mass 645275680 Active 2024 Inocencia Goodrich, [employer] [address], [place], [address], [place] [facility] 14:46:14 Primary hypothyroidism 20030351 Active 2024 Inocencia Goodrich, [employer] [address], [place], [address], [place] - [facility] 14:46:17 Essential hypertension 21543616 Active 2024 Inocencia Goodrich, [employer] [address], [place], [address], [place] - [facility] 14:46:19 Problem Notes [...] and Address Organization Details Last Updated DateTime 66054.0 5 g 24.4 kg/m2 152.4 cm 98 [...] Or The Highest Degree You Have Received? [id number] Information not available 06/17/2025 When Did You Quit Smoking? 1-5yearssin nicki mccain Information not available 06/17/2025 Do You Have A Medical Power Of Production Expert? No Information not available 06/17/2025 What Was [...] 50 mcg/0.25mL dose 1 completed Not Available [facility] 06/17/2025 13:51:39 COVID-19, mRNA, LNP-S, PF, 100 mcg/0.5mL dose or 50 mcg/0.25mL dose 1 completed Not Available [facility] 06/17/2025 13:51:39 COVID-19, mRNA, LNP-S, PF, 100 mcg/0.5mL dose or 50 mcg/0.25mL dose 1 completed Not Available [facility] 06/17/2025 13:51:39 COVID-19, mRNA, LNP-S, PF, 100 mcg/0.5mL dose or 50 mcg/0.25mL dose 2 completed Not Available [facility] 06/17/2025 13:51:39 Influenza, high-dose, trivalent, PF 4 completed Not Available [facility] 06/17/2025 13:51:39 Pneumococcal conjugate PCV20, polysaccharide OVI455 conjugate, adjuvant, PF 4 completed Not Available [facility] 06/17/2025 13:51:39 Past Encounters Encounter ID Performer Location Encounter Start Date Encounter Closed Date Diagnosis/Indication Diagnosis SNOMED-CT Code Diagnosis ICD10 Code Diagnosis IMO Codes Diagnosis Note [id number] Inocencia Goodrich APRN [address] [address] 06/17/2025 13:38:37 06/17/2025 15:01:13 Gastroesophageal reflux disease 687468172 K21.[address] howard if he wants her to stay on nexium, risk discussed Skin lesion 05027230 L98 .9 342662 Anxiety 22694632 F41.9 11283 Patient identified triggers for anxiety and impact of anxious thinking on functionin g. Discussed strategies to regulate symptoms and need for compliance with treatment. will hold xanax until uds resulted Mixed simp le and mucopurulent chronic bronchitis 259658739 J41.8 020261 Intracranial aneurysm 12 1223180 I67.1 057018 Lung mass 385190864 R91. [address] Cunningham Liver mass 255512953 R16 .0 [id number] follow up with dr howard Primary hypothyroidism 78298091 E03.9 42734 Essential hypertension 59368233 I10 38864 Long-term current use of drug therapy 477103447 Z79.899 22919435 Screening mammography 24 914335 Z12.31 9618491902 Health Concerns Section Related Observation LastModified by Organization Detai ls LastModified Time None Recorded Concern Status LastModified by Organization Details LastModified Time None Recorded Advance Directives Directive N: Payers Insurance Date Sequence Insurance Name Policy Number Policy Vela Covered Member ID Vela Member ID Guarantor Name 06/17/2025 [place] Nava Helton [id number] [facility] 06/17/2025 2 MEDICAID-[facility] CHOICES - FFS/TRADITIO NAL Nvaa Helton [id number] [facility] 06/17/2025 1 [employer] - G[employer] PLUS (MEDICARE REPLACEMENT/ ADVANTAGE - HMO) Nava Helton [id number] Nava [place] Notes Date Note Type Note Provider Name [...] soa her anxiety goes up Inocencia Goodrich, [employer] [address], [place], [address], [place] - [facility] 06/17/2025 15:27:11 OBGyn Episode No OBEpisode recorded.
--- OUTSIDE RECORDS SUMMARY | 2025-06-24 12:46 | XMS_ITS | Data Portability ---
Author Organization [facility] Address [address] [facility] [address] [place] [address] Care Team Providers Care Supervisor Poultry Processing Name Role Phone CRISTIANE BURROWS Primary Care Provider [phone] Assessment Encounter Date Assessment Date Assessment LastModified by Organization Details LastModified Time 09/28/2020 09/28/2020 SURGERY DATE: 09/28/2020 PREOPERATIVE DIAGNOSES: 1. Cervical spondylosis. 2. Chronic neck pain. POSTOPERATIVE DIAGNOSES: 1. Cervical spondylosis. 2. Chronic neck pain. PROCEDURE: ACDF at C4-5, C5-6. ANESTHESIA: General endotracheal anesthesia. ESTIMATED BLOOD LOSS: 30 mL. COMPLICATIONS: None. FINDINGS: Severe spinal stenosis and osteophyte formation. SURGEON: Cooper Rhoades MD WIRE STRAIGHTENING MACHINE OPERATOR: Scar Price PA-C, Scrub present assisted including closure of the wound. INDICATIONS: Ms. Smiley presented to our clinic for evaluation of her neck pain. Chronic neck issues. Referred pain in the axial neck with extension into the arms. The MRI of the cervical spine was performed. She has xkqcimux-xl-nylf re central stenosis as a consequence of central disc protrusions at C4-5, C5-6 with foraminal encroachment. Treatment options were discussed. Based on the progression of her disease process and severity of the radiographic films, I recommended proceeding with a 2-level ACDF to address this problem. OPERATIVE NOTE: The patient was intubated without incident, placed in 7 pounds of cervical traction. The anterior neck was prepped and draped. A time-out performed. Antibiotics were given. Films were available and reviewed in the room prior to incision. The incision was localized with C-arm fluoroscopy. A right anterior neck incision was planned out. Incision performed with 15 blade knife, cautery dissection through the subcu fat. The platysma was undermined and then incised. Continued sharp and blunt dissection medial to the SCM down to the prevertebral fascia. Periosteal dissection was undertaken, exposing C4 to C6. The longus muscle reflected laterally. Trimline retractor was placed into the wound. Operative microscope was brought into the field. The x-ray confirmed the location. Superior ellipse of the disc spaces were removed with Kerrison's. The bone was repurposed for autograft. Disectomies were now completed with curettes and the Midas drill. The PLL was mobilized and removed. Focal disc protrusions were cleaned out and removed with Kerrison's. Continued the decompression out laterally into the foramen. This was done at C4-5 and C5-6. The end-plates were prepared for arthrodesis. A 6 mm cages were now opened. They were packed with fiber cell allograft and autograft, advanced into the disc space at C4-5 and then C5-6. A 33 mm ZEVO plate placed over the cervical spine with 13 mm screws x2 placed at C4, C5 and C6. Screws were tightened and locking mechanism was engaged. Final AP and lateral x-ray showed good placement of the hardware. The retractors were taken out of the wound, inspected a final time, copiously irrigated. Meticulous hemostasis was achieved. Platysma and subcuticular layers were closed separately. Steri-Strips were placed over the skin for final wound closure. Traction was removed after placement of the cages. The patient was extubated without incident and left the OR in stable condition. [email or web address] Not available 10/01/2020 03:33:20 Plan of Treatment Reminders Order Date Submit Date Provider Last Modified By Organization Details Last Modified Time Details Appointments None recorded. Lab None recorded. Referral None recorded. Procedures None recorded. Surgeries None recorded. Imaging None recorded. Medication Orders hydrocodone 7.5 mg-acetamin ophen 325 mg tablet 2020 021 [facility], [address] [place] [address], [id number], 11:11:36 tramadol 50 mg tablet 2020 021 [email or web address] Not available 13:45:43 Patient TargetsNo targets recorded. Patient Instructions Encounter Date Encounter Id Patient Instructions Last Modified By Organization Details Last Modified Time 09/23/2020 [id number] MRI cervical spine CD-ROM Franky Ludwig: Prominent disc bulge C4-5, 5 6 . Moderate central and foraminal stenosis Spent 45 total minutes with the patient today. Greater than 50% of this time was spent counseling/coordi nation of care as documented in my assessment and plan above. [email or web address] Not available 09/23/2020 09:22:14 10/28/2020 [id number] X-ray cervical spine: Stable hardware C4-6 without complication [email or web address] Not available 10/28/2020 11:08:16 Reason for Referral None Reported. Results Created Date Observation Date Name Description Value Unit Range Abnormal Flag Note LastModifiedBy Organization Detail LastModifiedTime 09/26/19 21 09/28/2020 SARS CoV 2 RNA (COVI D-19) , QL, molding utility worker-P CR, respi rator y speci men sars cov2 result NEGATI VE normal Not Available [facility] [address] [place] [address], [phone], 09/28/2020 07:48:34 10/29/19 21 10/28/2020 XR, cervi filipe spine , 2 or 3 view [facility] [address] [place] [address] Donnie chaidez Name: JOSH chaidez : 1959 Donnie chaidez Orderi ng Provid er: JONATAN THACKER PS EXAM DATE: 2020 EXAM: XR CERVIC AL AP/LAT CLINIC AL INFORM ATION: Postop erativ e. IMAGES PROVID ED: AP, and latera l views of the cervic al spine. COMPAR GEOVANNI: None. FINDIN GS AND IMPRES DAGMAR: Anteri or spinal fusion is noted at C4-C6 level with compre ssion plate and screws . Surgic al hardwa re is satisf actori ly placed . No eviden ce of loosen ing or infect ion is seen. Other levels are normal . Interp reted By: Genna Issa MD Electr onical ly Signed By: Genna Issa MD on 10/29/19 1:32 PM [email or web address] [facility] [address] [place] [address], [phone], 11/04/2020 11:08:26 Result Notes Documentation Provider Name and Address Organization Details Recorded Time Xr, Cervical Spine, 2 Or 3 View : [facility] [address] [place] [address] Patient Name: JOSH SMILEY Patient : 1960 Patient Ordering Provider: COOPER RHOADES EXAM DATE: 10/28/2020 EXAM: XR CERVICAL AP/LAT CLINICAL INFORMATION: Postoperative. IMAGES PROVIDED: AP, and lateral views of the cervical spine. COMPARISON: None. FINDINGS AND IMPRESSION: Anterior spinal fusion is noted at C4-C6 level with compression plate and screws. Surgical hardware is satisfactorily placed. No evidence of loosening or infection is seen. Other levels are normal. Interpreted By: Mick Issa MD ER RHOADES MD [address] [place] [address], [phone], [facility] 11/04/2020 11:08:26 Procedures Surgical History Date Name Laterality Status Provider Name and Address Organization Details Recorded Time appendectomy completed [facility] 09/23/2020 08:40:16 hysterectomy completed [facility] 09/23/2020 08:40:25 Brain Surgery completed [facility] 09/23/2020 08:40:32 procedure on lung completed [facility] 09/23/2020 08:40:42 Imaging Results None recorded. Procedure Notes None recorded. Medical Equipment None Reported. Allergies Allergen ID Allergen Name Allergen Category Reaction Reaction Severity Criticality Documentation Date Start Date Code Code System Note Provider Name and Address Organization Details Recorded Time 934270 codeine medicatio n Not available Not available Not available 06/17/20162012 2670 RxNorm Comme nt: Creat ed By: Sera gannon;Bairon eated Date: 2012 1:02: 30 PM; Not Available [facility] 6 09:42:23 Medications Name Sig Start Date Stop Date Status Note LastModified by Organization Details LastModified Time triamcinolo ne acetonide 0.5 % topical cream active Not Available Not Available Not Available Xanax 2 mg tablet Three times a day 09/23 completed Duratio n: 20 days;Fr equency : tid;Alt Frequen cy: as direct. ;Medica tion Descrip tion: alprazo potter; Dosage: 1; Route:o ral; refills :0; Quantit y:20 tablet Not Available Not Available Not Available hydrocodone 5 mg-acetamin ophen 325 mg tablet Take 1 tablet every 6 hours by oral route as needed. 2020 active Not Available Not Available Not Avai lable prednisone 20 mg tablet 09/23 completed Not Available Not Available Not Available tramadol 50 mg tablet Take 1 tablet every 8 hours by oral route as needed. 2020 active Not Available Not Available Not Avai lable carbamazepi ne 200 mg tablet Two times a day active Not Available Not Available No t Available hydrocodone 7.5 mg-acetamin ophen 325 mg tablet Take 1 tablet every 8 hours by oral route as needed. 2020 active Not Available Not Available Not Avai lable esomeprazol e magnesium 40 mg capsule,del ayed release 09/23 completed Not Available Not Available Not Available albuterol sulfate HFA 90 mcg/actuati on aerosol inhaler active Not Available Not Available Not Available naproxen 500 mg tablet 09/23 completed Not Available Not Available Not Available gabapentin 300 mg tablet Three times a day 09/23 completed Frequen cy: tid;Med ication Descrip tion: gabapen tin; Dosage: 1; Route:o ral; refills :0 Not Available Not Available Not Available Symbicort 160 mcg-4.5 mcg/actuati on HFA aerosol inhaler active Not Available Not Available Not Available Vitals Date Recorded Body height Body mass index (BMI) Body weight Systolic And Diastolic Provider Name and Address Organization Details Last Updated DateTime 09/23/2020 152.4 cm 21.5 kg/m2 96504.16 g 110/70 mm[Hg] Lesly Moore [facility] 09/23/2020 08:56:58 Date Recorded Body height Body mass index (BMI) Body weight Systolic And Diastolic Provider Name and Address Organization Details Last Updated DateTime 10/28/2020 152.4 cm 21.5 kg/m2 85914.16 g 120/70 mm[Hg] Lesly Moore [facility] 10/28/2020 11:05:52 Social History None recorded. Functional Status None recorded. Mental Status None recorded. Family History Relationship Description Onset Age of this Age Resolved Age Notes LastModified by Organization Details LastModified Time Unspecified Relation Malignant neoplastic disease [email or web address] Not available 09/23 08:40:03 Medical History Condition Response COPD Y Osteoporosis/Osteopenia Y Epilepsy/Seizures Y Gynecological HistoryNo gynecological history recorded. Obstetrics History GPAL:G 0 P 0 0 0 0 Past Encounters Encounter ID Performer Location Encounter Start Date Encounter Closed Date Diagnosis/Indication Diagnosis SNOMED-CT Code Diagnosis ICD10 Code Diagnosis IMO Codes Diagnosis Note [id number] COOPER RHOADES MD [facility] [address] [place] [address] 09/23/2020 08:01:18 09/23/2020 15:23:56 Cervical spondylosis without myelopathy 879669701 M47.812 -The patient presents for evaluation of progressiv e neck pain over the last 6 months. She is having difficulty sleeping. She is disabled already. The pain is poorly controlled with conservati ve measures including medical therapy as well as therapeuti c activities . The MRI shows prominent disc bulges at C4-5, 5 6 with moderate central and foraminal stenosis. We talked about the treatment options. Talked about the risk of treatment which would include a ACDF C4-6. The main risk is that although the surgery may be technicall y successful and may not significan tly alleviate her pain. She understand s other options are available to her. However, she wishes to proceed with the surgery. Based on severity of the MRI think this is reasonable direction of care. There is also a nodule in the back of the neck take me palpated with extension. I do not appreciate a soft tissue mass on the MRI scan but I think it is likely revealed. She is tender to palpation. Something that can be followed more electively . There appears to be a lot of venous congestion in her neck and with her history of a vascular issues intracrani ally, may necessitat e a CTA of the neck in the future if this continues to be a complaint plan ACDF C4-5, 5-6 [id number] COOPER RHOADES MD SURGERY SCHEDULE [address] [place] [address] 09/28/2020 12:14:20 09/28/2020 12:18:37 [id number] COOPER RHOADES MD [facility] [address] [facility] [address] [place] [address] 10/28/2020 10:44:18 10/29/2020 15:03:40 Postoperative care 650586885 Z48.89 -1 month status post 2 level ACDF. Hardware looks good today. She was given a copy of the x-ray. Encouraged neck exercises. Plan to see her back in 3 months with x-rays. Increase activity as tolerates. We have provided a prescripti on for [place] 7.5 every 8 hours when necessary pain. Her pain is mainly at I at this point. Making appropriat e progress norco 7.5 q 8 hours prn Health Concerns Section Related Observation LastModified by Organization Detai ls LastModified Time None Recorded Concern Status LastModified by Organization Details LastModified Time None Recorded Advance Directives Directive None Recorded Payers Insurance Date Sequence Insurance Name Policy Number Policy Vela Covered Member ID Vela Member ID Guarantor Name 10/25/2020 1 [place] Josh Smiley [id number] 1 Josh Smiley 10/28/2020 2 [facility] (MEDICAID REPLACEMENT - HMO) Josh Smiley [id number] Josh Smiley Notes Date Note Type Note Provider Name and Address Organization Details Recorded Time 09/23/2020 text/html ROS as noted in the HPI This is a 60-year-old who presents for evaluation of her neck pain. Referred pain from the back of the neck into the shoulders occasional radiation into the arms. Numbness and tingling in a similar distribution. She was seen at the request of Cristiane Burrows. 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 Progressive symptoms last 6 months. Pain is now very intense. Intensity 7 out of 10. Describes burning T Cabrera tightness that is constant but getting worse. No alleviating factors. Aggravated by turning her neck or lifting or looking up. States she has weakness in her arms. Treatment has included gabapentin, anti-inflammatories , home exercises, activity modification, therapy exercises. The patient's had previous craniotomy for aneurysm. Seizure disorder. Well controlled on Tegretol. Marilou angeles, [facility] 09/23/2020 13:45:53 10/28/2020 text/html ROS as noted in the HPI Postoperative care. ACDF C4-6. Uncomplicated course. Expected postoperative posterior neck pain. Swallowing is fine. COOPER RHOADES MD [facility] [place], [address], [facility] 10/28/2020 11:10:02 OBGyn Episode No OBEpisode recorded.
[2025-06-24] MEDS: SODIUM CHLORIDE 0.9% 10ML SYR (RAD ONLY) 10 ML IV (14:28)
[2025-06-24] MEDS: GADOTERIDOL INJ 20ML SYRINGE 12 ML IV (14:28)
== END 2025-06-24 23:59 | disposition home or self-care (01) ==
LOC: RAD 12:43
PROVIDERS: PCP Internal Medicine Adolescent Medicine; Visit Provider Nurse Practitioner Family
DX: I67.1 Cerebral aneurysm, nonruptured (principal); R90.89 Other abnormal findings on diagnostic imaging of central nervous system
CPT/HCPCS: 70544; 70553; A9576

== ENCOUNTER 2025-07-09 08:11 | Outpatient (CLI) | payer MEDICARE, MEDICAID, SELFPAY ==
--- OUTSIDE RECORDS SUMMARY | 2024-11-11 08:15 | XMS_ITS ---
Author Organization [facility] Address [address] [address] Care Team Providers Care Last Pattern Grader Name Role Phone LinBrooklynn Unavailable [phone] Brooklynn Ceballos Unavailable Unavailable MRS. Dorie Espinoza Unavailable [phone] REASON FOR VISIT ANDREW - GROWTH ON ARM Social History Sex Assigned At : Social History Observation Description Sex Assigned At Female Encounters Encounter Location Date Provider Diagnosis [facility] [address] [address] 11/11/2024 Dorie Espinoza Plan Of Treatment No Information Progress Notes * Nava SMILEY RDOB:1960 (64 yo F)Acc No.[id number]:11/11/2024 Patient: Nava Ram Provider: Nancy Espinoza NP :1960 A ge:64 Y S ex:Female Date:11/11/2024 Address:[id number] Subjective: * Chief Complaints: * S HELLEY - GROWTH ON ARM Billing Information: * Procedure Codes: * Electronic signature of MRS. Oshea Alexis FELIPE on 07/09/2025 at 08:13 AM EST Sign off status: Pending * Provider: Nancy Espinoza NP Date: 0 11/11/2024 Generated for Printi ng/Faxing/eTransmitting on: 1 09/09/2024 08:13 AM EST
--- NOTE | 2025-07-09 08:13 | MM_ITS ---
PROCEDURE INFORMATION: Exam: MG Bilateral Screening 3D Mammography Exam date and time: 07/09/2025 8:29 AM Age: 64 years old Clinical indication: Screening examination TECHNIQUE: Imaging protocol: Bilateral Screening tomosynthesis and 2D mammography including computer-aided detection (CAD) when performed. COMPARISON: No relevant prior studies available. FINDINGS: MAMMOGRAPHY: Breast composition: There are scattered areas of fibroglandular density. Mass: None. Architectural distortion: None. Calcifications: No suspicious calcifications. Asymmetric density: None. Skin thickening: None. Axillary adenopathy: None. IMPRESSION: No mammographic evidence of malignancy. Annual screening is recommended unless otherwise clinically indicated. ASSESSMENT: BI-RADS Category 1: Negative.
--- OUTSIDE RECORDS SUMMARY | 2025-07-09 08:13 | XMS_ITS | Clinical Summary ---
Author Organization [facility] Address [address] [place] [address] Phone Care Team Providers Care Hand Wrapper Operator Name Role Phone Arleen Ellison MD Primary Care Physician [ ] Conditions or Problems Problem Name Problem Code Onset Date Status Entry Date Provider Comment Standard Description Annotate ARTHRITIS, HAND 804550564 (SNOMED CT) 09/28 Active 09/28 Arleen Ellison MD Arthritis of hand INSOMNIA NEC 755379596 (SNOMED CT) 09/28 Active 09/28 Arleen Ellison MD Insomnia TOBACCO USE DIS F17.200 (ICD-10-CM) 08/17 Active 08/17 Arleen Ellison MD Nicotine dependence, unspecified, uncomplicated BRONCHITIS ACUTE 24823759 (SNOMED CT) 08/17 Inactive 08/17 Arleen Ellison MD Acute bronchitis Medications Medication Instructions Start Date Stop Date Generic Name [facility] Provider TRAZODONE HCL 50 MG TABS 1BY MOUTH EVERY NIGHT TRAZODONE HCL 08777321672 Arleen Ellison MD ETODOLAC 400 MG TABS 1 BY MOUTH TWO TIMES A DAY ETODOLAC 81829344563 Arleen Ellison MD PROAIR HFA 108 (90 Base) MCG/ACT INHALATION AEROSOL SOLUTION [id number] ALBUTEROL SULFATE 23448852946 Arleen Ellison MD MUCINEX 600 MG [id number] 2pobid GUAIFENESIN 97317009558 Arleen Ellison MD AZITHROMYCIN 250 MG TABS 2po x1d [id number] AZITHROMYCIN [id number] Arleen Ellison MD Medications Administered No information [...]
--- OUTSIDE RECORDS SUMMARY | 2025-07-09 08:13 | XMS_ITS | Clinical Summary ---
Author Organization Healthcare Address [address] [place] [address] Care Team Providers Care Lace Machine Operator Name Role Phone Jesus Levi MD Primary Care Provider [phone] Allergies No known active allergies Medications albuterol [...] Used Date Smoking Tobacco: Former Cigarettes 1 42 S tarted: 1983 Smokeless Tobacco: Never Comments [...] [facility] [address] [place] [address] Zelalem South MD [address] [address] Health Maintenance Due Date Last Done Comments [facility]-Bone Density Scan 1959 [facility]-Depression Screening 1959 [facility]-Hepatitis C Screening 1959 [facility]-Medicare Annual Wellness (AWV) 1959 [facility]-/Child/Adol SDOH Screenings 1959 [facility]- SDOH Screenings 1977 [facility]-Adult SDOH Screenings 1977 [facility]-DTaP,Tdap,and Td Vaccines (1 - Tdap) 1978 CT Colonography 2004 Colonoscopy 2004 FIT-DNA 2004 FIT 2004 FOBT 2004 Sigmoidoscopy 2004 [facility]-Colorectal Cancer Screening 2004 [facility]-Breast Cancer Screening 2009 [facility]-RSV Vaccine: 60+ Years or (1 - Risk 50-74 years 1-dose series) 2009 [facility]-Zoster Vaccines (1 of 2) 2009 MP[facility]-VIBLY-79 Vaccine ( season) 2025 12/31/2021, 06/09/2021, 11/04/2020, Additional history exists [facility]-Influenza Vaccine (#1) 2025 05/07/2024, [facility]-Cervical Cancer Screening Discontinued [facility]-Pap Smear Discontinued 07/09/2007 [facility]-Pneumococcal Vaccine: 50+ Years Completed 05/07/2024, 07/24/2013 HPV Vaccines (No Doses Required) Completed [facility]-HIB Vaccines Aged Out No longer e [...] patient's age to complete this topic Insurance [facility] [employer] MEDICAID [facility] MEDICARE [facility] MEDICAID Care Teams Lace Machine Operator Relationship Specialty Start Date End Date Jesus Levi MD [address] [place] [address] PCP - General 12/04/20
--- OUTSIDE RECORDS SUMMARY | 2025-07-09 08:14 | XMS_ITS | Encounter Summary ---
Author Organization Healthcare Address [address] [place] [address] Care Team Providers Care Sql Etl Developer Name Role Phone Jesus Levi MD Primary Care Provider [phone] Reason for Referral * Consultation (Routine) - Closed Specialty Diagnoses / Procedures Referred By Cristina chaidez Referred To Contact Plastic Surgery Diagnoses Multiple lipomas Silas Baires MD [address] [facility] [address] [id number] Phone: tel: fax: Referral ID Status Reason Start Date Expiration Date V isits Requested Visits Authorized [id number] Closed Specialty Services Required 11/22/2024 05/24/2026 1 1 Encounter Details Date Type Department Care Team (Late Contact Info) Description 11/22/2024 [facility] [address] [place] [address] Silas Baires MD [address] [facility] [address], [place] [address] Multiple lipomas (Primary Dx) Social History Tobacco [...] [facility] [address] [place] [address] Zelalem South MD [address] [facility] [address] [place] [address] Scheduled Referrals Name Type Priority Associated Diagnoses Order Schedule Ambulatory Referral to Plastic Surgery Outpatient Referral Routine Multiple lipomas Ordered: 11/22/2024 documented as of this encounter Visit Diagnoses Diagnosis Multiple lipomas- Primary documented in this encounter Care Teams Sql Etl Developer Relationship Specialty Start Date End Date Jesus Levi MD [address] [phone] PCP - General 12/04/20 documented as of this encounter
--- OUTSIDE RECORDS SUMMARY | 2025-07-09 08:14 | XMS_ITS | Patient Health Record ---
[facility] Organization [facility] Address [address] [facility] [address] [place] [address] Care Team Providers Care Carton Folder Name Role Phone Brooklynn Ceballos Unavailable [phone] Lin Brooklynn Unavailable Unavailable Gabriela Pace Unavailable [phone] Collette Castle Unavailable [phone] AlexisMRS. Oshea Unavailable [phone] Allergies No Known Allergies Results Component Value Reference Range Flag Notes Rapid Plasma Reagin (RPR) wi th Titer Reviewed date:09/10/2024 08:15:05 AM Interpretation: Performing Lab: Notes/Report: RPR NONREACTIVE NONREACTIVE N Qualitative and quantitative nontreponemal test for the serologic detection of syphilis. Result analyzed by Manual Methods TITER N/R N Comprehensive Metabolic Pane l (CMP) Reviewed [...] N Urea (BUN) 14 7-21 mg/dL N CBC with Diff Reviewed date:09/10/2024 08:56:50 AM [...] % N WBC 6.71 3.8-10.7 10e3/uL N Hepatitis B Core IgM Antibod y Reviewed date:09/10/2024 08:54:21 AM Interpretation: Performing Lab: Notes/Report: Hepatitis B Core IgM Antibody NON REACTIVE NON REACTIVE N Result analyzed by Entelos Hepatitis B Total Core Antib fredi Reviewed date:09/10/2024 08:54:15 AM Interpretation: Performing Lab: Notes/Report: Hepatitis B Total Core Antibody NON REACTIVE NON REACTIVE N Result analyzed by Entelos QuantiFERON TB Reviewed date:09/11/2024 09:49:47 AM Interpretation: [...] Mycobacterium tuberculosis Infection --- [place], 2010 (http://www.cdc.gov/mm wr/preview/mmwrhtml/rr 5905a1 .htm), for more information concerning test performance in low-prevalence populations and use in occupational screening. Mitogen >10.0 0.5000 <= IU/mL N Nil 0.395 N TB1-Antigen 0.416 N TB2-Antigen 0.415 N TSH with Reflex to Free T3 a nd Free T4 Reviewed date:09/10/2024 08:57:46 AM Interpretation: Performing Lab: Notes/Report: TSH (T3 and T4 Reflex) 3.9 0.35-4.94 uIU/ml N Normal Result analyzed by Entelos Hepatitis B Surface Antibody Reviewed date:09/10/2024 08:53:54 AM Interpretation: Performing Lab: Notes/Report: Hepatitis B Surface Antibody NON REACTIVE NON REACTIVE N Result analyzed by Entelos Hepatitis B Surface Antigen Reviewed date:09/10/2024 08:54:08 AM Interpretation: Performing Lab: Notes/Report: Hepatitis B Surface Antigen NON REACTIVE NON REACTIVE N Result analyzed by Entelos Hepatitis C Antibody with Re flex Reviewed date:09/10/2024 08:53:47 AM Interpretation: Performing Lab: Notes/Report: Hepatitis C Antibody NON REACTIVE Nonreactive HIV Ag/Ab with Reflex to HIV -1 Quantitative NAAT Reviewed date:09/10/2024 08:53:40 AM Interpretation: Performing Lab: Notes/Report: HIV Ag/Ab (HIV-1 Qnt NAAT Reflex) NON REACTIVE NON REACTIVE N Result analyzed by MARIJA Syphilis with Reflex to RPR Titer and TP-PA Confirmation Reviewed date:09/10/2024 08:53:34 AM Interpretation: Performing Lab: Notes/Report: Syphilis REACTIVE Nonreactive Treponema pallidum by TP-PA Reviewed date:09/10/2024 08:53:26 [...] a day; Duration: 30 days deliver to [place] 09/04/2024 Active Levothyroxine Sodium 100 MCG Capsule [...] Duration: 30 days deliver to [place] Active Albuterol Sulfate HFA 108 (90 Base) MCG/ACT Aerosol Solution 1 puff as needed Inhalation every 4 hrs; Duration: 30 days deliver to [place] 09/04/2024 Active Keppra 500 MG Tablet 1 tablet Orally every 12 hrs; Duration: 30 days deliver to [place] 09/03/2024 Active QUEtiapine Fumarate 100 MG Tablet 1 tablet Orally At bedtime; Duration: 30 days deliver to [place] 10/29/2024 Active Social History Tobacco Use: Social [...] Status W/U Status Risk Notes Problem Hypothyroidism (09669436) Hypothyroidism, unspecified (E03.9) Active confirmed Problem Uncomplicated asthma (disorder) (051660823) Unspecified asthma, uncomplicated (J45.909) Active confirmed Problem Chronic insomnia (150540785) Chronic insomnia (F51.04) Active confirmed Problem Seizure disorder (708572639) Seizure disorder (G40.909) Active confirmed Problem Mild intermittent asthma (567290308) Mild intermittent asthma without complication (J45.20) Active confirmed Problem Cocaine dependence (81949367) Cocaine use disorder, severe, dependence (F14.20) Active confirmed Problem Arthritis (9244138) Arthritis (M19.90) Active confirmed Problem 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) Active confirmed Problem Gastroesophageal reflux disease (237010683) GERD without esophagitis (K21.9) Active confirmed Problem Chronic obstructive lung disease (81875128) COPD without exacerbation (J44.9) Active confirmed Vital [...] 11/13/2024 Encounters Encounter Location Date Provider Diagnosis [facility] [address] [address] 09/03/2024 Brooklynn Ceballos Cocaine use disorder , severe, dependence F14.20 ; Sedative hypnotic or anxiolytic dependence F13.20 ; Chronic insomnia F51.04 ; Seizures R56.9 ; Arthritis M19.90 ; High risk heterosexual behavior Z72.51 ; GERD without esophagitis K21.9 ; Hypothyroidism, unspecified E03.9 ; Tuberculosis screening Z11.1 and Mild intermittent asthma without complication J45.20 [facility] [address] [address] 10/10/2024 Brooklynn Ceballos Cocaine use disorder , severe, dependence F14.20 ; Sedative hypnotic or anxiolytic dependence F13.20 ; Mild intermittent asthma without complication J45.20 ; GERD without esophagitis K21.9 ; Chronic insomnia F51.04 ; Hypothyroidism, unspecified E03.9 ; Arthritis M19.90 ; High risk heterosexual behavior Z72.51 and Seizure disorder G40.909 [facility] [address] [phone] 10/10/2024 Brooklynn Ceballos Cocaine use disorder , severe, dependence F14.20 and Sedative hypnotic or anxiolytic dependence F13.20 [facility] [address] [phone] 10/14/2024 Collette Castle Localized infection of subcutaneous tissue L08.9 [facility] [address] [address] 10/17/2024 Brooklynn Ceballos Muscle spasm M62.838 [facility] [address] [address] 10/23/2024 Dorie Espinoza Chronic insomnia F51.04 [facility] [address] [phone] 10/29/2024 Brooklynn Ceballos Chronic insomnia F51.04 [facility] [address] [address] 11/13/2024 Gabriela Wilp Abdominal discomfort R10.9 and Shortness of breath R06.02 [facility] [address] [phone] 11/15/2024 Brooklynn Ceballos Benign lipomatous neoplasm of skin and subcutaneous tissue of trunk D17.1 [facility] [address] [address] 11/19/2024 Brooklynn Ceballos Other nonspecific abnormal finding of lung field R91.8 [facility] [address] [address] 10/14/2024 Collette Corrine Arthritis M19.90 and Seizure disorder G40.909 [facility] [address] [address] 10/16/2024 Collette Corrine Seizure disorder G40.909 [facility] [address] [address] [address] 10/21/2024 Collette Corrine Arthritis M19.90 and Seizure disorder G40.909 [facility] [address] [address] 10/30/2024 Brooklynn Ceballos Mild intermittent asthma without complication J45.20 [facility] [address] [phone] 11/05/2024 Brooklynn Ceballos Muscle spasm M62.838 [facility] [address] [phone] 11/07/2024 Brooklynn Ceballos Chronic insomnia F51.04 ; GERD without esophagitis K21.9 and Hypothyroidism, unspecified E03.9 [facility] [address] [phone] 11/12/2024 Brooklynn Ceballos GERD without esophagitis K21.9 Assessments Encounter Date Diagnosis (ICD Code) Assessment Notes Treatment Notes Treatment Clinical Notes Section Notes 09/03/2024 Cocaine use disorder, severe, dependence (ICD-10 [...] Advised that patient be taken back to [facility] by non emergent transportation for evaluation [...] F13.20) 10/14/2024 Seizure disorder (ICD-10 - G40.909) 09/03/2024 Chronic insomnia (ICD-10 - F51.04) 10/10/2024 GERD without esophagitis (ICD-10 - K21.9) 09/03/2024 Seizures (ICD-10 - R56.9) 11/07/2024 Hypothyroidism, unspecified (ICD-10 - E03.9) 10/10/2024 Chronic insomnia (ICD-10 - F51.04) 09/03/2024 Arthritis (ICD-10 - M19.90) 09/03/2024 High risk heterosexual behavior (ICD-10 - Z72.51) 10/10/2024 Hypothyroidism, unspecified (ICD-10 - E03.9) 10/10/2024 Arthritis (ICD-10 - M19.90) 09/03/2024 GERD without esophagitis (ICD-10 - K21.9) 09/03/2024 Hypothyroidism, unspecified (ICD-10 - E03.9) 10/10/2024 High risk heterosexual behavior (ICD-10 - Z72.51) 09/03/2024 Tuberculosis screening (ICD-10 - Z11.1) 10/10/2024 Seizure disorder (ICD-10 - G40.909) 09/03/2024 Mild intermittent asthma without complication (ICD-10 - J45.20) Plan Of Treatment Pending Test Test Name Order Date Chlamydia and Gonorrhea Panel 09/03/2024 T. vaginalis 09/03/2024 Insurance Providers Payer Name Payer Address Payer Phone Subscriber Number Group Number Insured Name Patient Relationship to Insured Coverage Start Date Coverage End Date [employer] Medicare Advantage [address] [place], [place] [id number] DanieNava Self - patient is the insured 4 4 [employer] Medicare Advantage [address] [place], [place] [id number] Nava Helton Self - patient is the insured 5 5 Medicare Part B [address] [address] [place] [address] [id number] Nava Helton Self - patient is the insured 5 [employer] Medicaid [address] [address] [place], [place] [id number] Nava Helton Self - patient is the [...]
--- OUTSIDE RECORDS SUMMARY | 2025-07-09 08:14 | XMS_ITS | Clinical Summary ---
[facility] Address [address] [place] [address] Care Team Providers Care Glaze Mixer Name Role Phone Cristiane Burrows Primary Care Provider [phone] Allergies No known active allergies Medications albuterol [...] TEST 2004 FIT Testing (1 year) 2004 ZOSTER VACCINE (1 of 2) 2009 Pneumococcal Vaccine 50+ (2 of 2 - PCV) 07/24/2014 0 07/24/2013 ANNUAL PHYSICAL 08/17/2020 HEPATITIS C SCREENING 08/17/2020 INFLUENZA VACCINE 02/21/2025 07/24/2013 COVID-19 Vaccine ( - season) 2025 Procedures Procedure Name Priority Date/Time Associated Diagnosis Comments SCANNED - IMAGING 06/24/2025 SCANNED - IMAGING 06/24/2025 from Last 3 Months Results * IMAGING SCANNED (06/24/2025) Only the most recent of2 resultswithin the time period is included. Anatomical Region Laterality Modality Radiographic Elza ging Vicky Cosby APRN IMG DIAGNOSTIC IMAGING ORDERA BLES Final Result from Last 3 Months Insurance MEDICARE A & B [employer] MEDICAID [place] Care Teams Glaze Mixer Relationship Specialty Start Date End Date Cristiane Burrows PA PCP - General Physician Office Services Clerk 08/10/20
--- OUTSIDE RECORDS SUMMARY | 2025-07-09 08:14 | XMS_ITS | Data Portability ---
Author Organization [facility] Address [address] [facility] [address] [place] [address] Care Team Providers Care Trimming Press Operator Name Role Phone CRISTIANE BURROWS Primary Care Provider Assessment Encounter Date Assessment Date Assessment LastModified by Organization Details LastModified Time 09/28/2020 09/28/2020 SURGERY DATE: 09/28/2020 PREOPERATIVE DIAGNOSES: 1. Cervical spondylosis. 2. Chronic neck pain. POSTOPERATIVE DIAGNOSES: 1. Cervical spondylosis. 2. Chronic neck pain. PROCEDURE: ACDF at C4-5, C5-6. ANESTHESIA: General endotracheal anesthesia. ESTIMATED BLOOD LOSS: 30 mL. COMPLICATIONS: None. FINDINGS: Severe spinal stenosis and osteophyte formation. SURGEON: Cooper Rhoades MD SAMPLE CUTTER: Scar Price PA-C, Scrub present assisted including closure of the wound. INDICATIONS: Ms. Smiley presented to our clinic for evaluation of her neck pain. Chronic neck issues. Referred pain in the axial neck with extension into the arms. The MRI of the cervical spine was performed. She has fqreucvy-vp-nato re central stenosis as a consequence of [...] mg-acetamin ophen 325 mg tablet 2020 021 [facility], [address] [place] [address], [id number], 11:11:36 tramadol 50 mg tablet 2020 021 [email or web address] Not available 13:45:43 Patient TargetsNo targets recorded. Patient Instructions Encounter Date Encounter Id Patient Instructions Last Modified By Organization Details Last Modified Time 09/23/2020 [id number] MRI cervical spine CD-ROM Franky Ludwig: Prominent disc bulge C4-5, 5 6 . Moderate central and foraminal stenosis Spent 45 total minutes with the patient today. Greater than 50% of this time was spent counseling/coordi nation of care as documented in my assessment and plan above. [email or web address] Not available 09/23/2020 09:22:14 10/28/2020 [id number] X-ray cervical spine: Stable hardware C4-6 without complication [email or web address] Not available 10/28/2020 11:08:16 Reason for Referral None Reported. Results Created Date Observation Date Name Description Value Unit Range Abnormal Flag Note LastModifiedBy Organization Detail LastModifiedTime 09/26/19 21 09/28/2020 SARS CoV 2 RNA (COVI D-19) , QL, acds block 1 operator-P CR, respi rator y speci men sars cov2 result NEGATI VE normal Not Available [facility] [address] [place] [address], [phone], 09/28/2020 07:48:34 10/29/19 21 10/28/2020 XR, cervi filipe spine , 2 or 3 view [facility] [address] [place] [id number] Donnie chaidez Name: JOSH chaidez : 1959 [...] Genna Issa MD on 10/29/19 1:32 PM [email or web address] [facility] [address] [place] [address], [phone], 11/04/2020 11:08:26 Result Notes Documentation Provider Name and Address Organization Details Recorded Time Xr, Cervical Spine, 2 Or 3 View : [facility] [address] [place] [address] Patient Name: JOSH SMILEY Patient : 1960 [...] By: Mick Issa MD ER RHOADES MD [address] [place] [address], [phone], [facility] 11/04/2020 11:08:26 Procedures Surgical History Date Name Laterality Status Provider Name and Address Organization Details Recorded Time appendectomy completed [facility] 09/23/2020 08:40:16 hysterectomy completed [facility] 09/23/2020 08:40:25 Brain Surgery completed [facility] 09/23/2020 08:40:32 procedure on lung completed [facility] 09/23/2020 08:40:42 Imaging Results None recorded. Procedure Notes None recorded. Medical Equipment None Reported. Allergies Allergen ID Allergen Name Allergen Category Reaction Reaction Severity Criticality Documentation Date Start Date Code Code System Note Provider Name and Address Organization Details Recorded Time 000322 codeine medicatio n Not available Not available [...] Updated DateTime 09/23/2020 152.4 cm 21.5 kg/m2 02803.16 g 110/70 mm[Hg] Lesly Moore [facility] 09/23/2020 08:56:58 Date Recorded Body height Body mass index (BMI) Body weight Systolic And Diastolic Provider Name and Address Organization Details Last Updated DateTime 10/28/2020 152.4 cm 21.5 kg/m2 90935.16 g 120/70 mm[Hg] Lesly Moore [facility] 10/28/2020 11:05:52 Social History None recorded. [...] ICD10 Code Diagnosis IMO Codes Diagnosis Note [id number] COOPER RHOADES MD [facility] [address] [address] [address] [place] [address] 09/23/2020 08:01:18 09/23/2020 15:23:56 Cervical spondylosis without myelopathy [id number] M47.812 -The patient presents for evaluation of [...] be a complaint plan ACDF C4-5, 5-6 [id number] COOPER RHOADES MD SURGERY SCHEDULE [address] [place] [address] 09/28/2020 12:14:20 09/28/2020 12:18:37 [id number] COOPER RHOADES MD [facility] [address] [facility] [address] [place] [address] 10/28/2020 10:44:18 10/29/2020 15:03:40 Postoperative care [id number] Z48.89 -1 month status post 2 level ACDF. Hardware looks good today. She was given a copy of the x-ray. Encouraged neck exercises. Plan to see her back in 3 months with x-rays. Increase activity as tolerates. We have provided a prescripti on for Thompson 7.5 every 8 hours when necessary pain. [...] Name 10/25/2020 1 [place] Josh Smiley [id number] 1 Josh Smiley 10/28/2020 2 [facility] (MEDICAID REPLACEMENT - HMO) Josh Smiley [id number] Josh Smiley Notes Date Note Type Note [...] Well controlled on Tegretol. Marilou angeles, [facility] 09/23/2020 13:45:53 10/28/2020 text/html ROS as noted in the HPI Postoperative care. ACDF C4-6. Uncomplicated course. Expected postoperative posterior neck pain. Swallowing is fine. COOPER RHOADES MD [facility] [place], [address], [facility] 10/28/2020 11:10:02 OBGyn Episode No OBEpisode recorded.
== END 2025-07-09 23:59 | disposition home or self-care (01) ==
LOC: RAD 08:12
PROVIDERS: PCP Nurse Practitioner Family; Visit Provider Nurse Practitioner Family
DX: Z12.31 Encounter for screening mammogram for malignant neoplasm of breast (principal); R92.323 Mammographic fibroglandular density, bilateral breasts
CPT/HCPCS: 77063; 77067